=== PATIENT | male | born 1980 | race Caucasian/White ===

== ENCOUNTER → 2020-08-24 08:33 | Outpatient (BNVA) | payer OTHER, SELFPAY | PROVIDERS: PCP Internal Medicine; Referring Provider Internal Medicine; Visit Provider Nurse Practitioner Gerontology | DX: Z76.89 Persons encountering health services in other specified circumstances (principal) ==

== ENCOUNTER 2021-03-23 10:01 | Outpatient (REF) | payer OTHER, SELFPAY ==
[2021-03-23 12:01] LABS: Alanine Aminotransferase 76 U/L (0-40); Albumin Level 4.7 g/dL (3.5-5.0); Alkaline Phosphatase 75 U/L (39-117); Anion Gap 12 (12-20); Aspartate Amino Transferase 39 U/L (5-37); Bilirubin Total 0.6 mg/dL (0.0-1.0); Blood Urea Nitrogen 13 mg/dL (9-16); Calcium 9.8 mg/dL (8.4-10.2); Carbon Dioxide 25 mmol/L (22-29); Chloride 105 mmol/L (96-108); Cholesterol 220 mg/dL; Estimated Glomerular Filt Rate > 60; Glucose Fasting 257 mg/dL (60-99); HDL Cholesterol 35 mg/dL; LDL Cholesterol Calculated 138 mg/dl; Potassium 4.4 mmol/L (3.3-5.1); Sodium 138 mmol/L (135-145); Total Protein 7.5 g/dL (6.5-8.0); Triglycerides 238 mg/dL
[2021-03-23 12:24] LABS: Free T4 (Free Thyroxine) 0.93 ng/dL (0.71-1.85); Thyroid Stimulating Hormone 0.71 uIU/mL (0.32-4.0)
[2021-03-23 13:13] LABS: Microalbum/Creatinine Ratio Ur 13.3 ug/mg cr
[2021-03-24 17:52] LABS: LDL Cholesterol Direct 150 mg/dL (<100)
== END 2021-03-23 10:02 | disposition home or self-care (01) ==
LOC: HO.LAB 10:01
PROVIDERS: PCP Internal Medicine; Visit Provider Nurse Practitioner Gerontology
DX: E11.65 Type 2 diabetes mellitus with hyperglycemia (principal); E66.01 Morbid (severe) obesity due to excess calories; Z68.35 Body mass index [BMI] 35.0-35.9, adult; E78.5 Hyperlipidemia, unspecified; Z79.4 Long term (current) use of insulin
CPT/HCPCS: 36415; 80053; 80061; 82043; 82947; 83721; 84439; 84443

== ENCOUNTER → 2021-06-26 09:07 | Outpatient (BNVA) | payer OTHER, SELFPAY | PROVIDERS: PCP Internal Medicine; Visit Provider Nurse Practitioner Gerontology | DX: E11.65 Type 2 diabetes mellitus with hyperglycemia (principal); E78.5 Hyperlipidemia, unspecified; E66.01 Morbid (severe) obesity due to excess calories; R79.89 Other specified abnormal findings of blood chemistry; Z79.4 Long term (current) use of insulin; Z68.35 Body mass index [BMI] 35.0-35.9, adult | CPT/HCPCS: 82947; 83036 ==

== ENCOUNTER 2022-12-07 11:22 | Outpatient (REF) | payer OTHER, SELFPAY ==
[2022-12-07 14:42] LABS: Hematocrit 44.2 % (42.0-52.0); Hemoglobin 15.3 g/dl (14.0-18.0); Mean Corpuscular HGB Conc 34.6 g/dl (31.0-36.0); Mean Corpuscular Hemoglobin 29.2 pg (27.0-33.0); Mean Corpuscular Volume 84.4 fL (80.0-98.0); Mean Platelet Volume 9.8 fL (9.4-12.4); Platelet Count 232 X10*3/uL (160-400); Red Blood Count 5.24 X10*6/uL (4.60-5.80); Red Cell Distribution Width 12.5 % (11.0-16.0); White Blood Count 7.4 X10*3/uL (4.8-10.8)
[2022-12-07 15:07] LABS: Alanine Aminotransferase 57 U/L (0-40); Albumin Level 4.3 g/dL (3.5-5.0); Alkaline Phosphatase 66 U/L (39-117); Anion Gap 14 (12-20); Aspartate Amino Transferase 28 U/L (5-37); Bilirubin Total 0.8 mg/dL (0.0-1.0); Blood Urea Nitrogen 13 mg/dL (9-16); Calcium 9.5 mg/dL (8.4-10.2); Carbon Dioxide 26 mmol/L (22-29); Chloride 103 mmol/L (96-108); Cholesterol 240 mg/dL; Estimated Glomerular Filt Rate > 60; Glucose Fasting 227 mg/dL (60-99); HDL Cholesterol 34 mg/dL; LDL Cholesterol Calculated 168 mg/dl; Potassium 4.1 mmol/L (3.3-5.1); Sodium 139 mmol/L (135-145); Total Protein 7.2 g/dL (6.5-8.0); Triglycerides 193 mg/dL
[2022-12-07 15:25] LABS: TSH reflex Free T4 1.16 uIU/mL (0.32-4.0)
== END 2022-12-07 11:23 | disposition home or self-care (01) ==
LOC: HO.WFDLDS 11:22
PROVIDERS: Visit Provider Nurse Practitioner Family
DX: E11.65 Type 2 diabetes mellitus with hyperglycemia (principal)
CPT/HCPCS: 36415; 80053; 80061; 84443; 85027

== ENCOUNTER → 2022-12-12 14:22 | Outpatient (BNVA) | payer OTHER, SELFPAY | PROVIDERS: PCP Nurse Practitioner Family; Visit Provider Internal Medicine Endocrinology, Diabetes & Metabolism | DX: E11.65 Type 2 diabetes mellitus with hyperglycemia (principal) | CPT/HCPCS: 82947 ==

== ENCOUNTER → 2023-03-13 10:32 | Outpatient (BNVA) | payer OTHER, SELFPAY | PROVIDERS: PCP Nurse Practitioner Family; Visit Provider Internal Medicine Endocrinology, Diabetes & Metabolism | DX: E11.65 Type 2 diabetes mellitus with hyperglycemia (principal); E78.5 Hyperlipidemia, unspecified | CPT/HCPCS: 82947 ==

== ENCOUNTER 2023-05-21 09:05 | Outpatient (AMB) | payer OTHER, SELFPAY ==
--- NOTE | 2023-05-21 09:07 | A.OFFPC_ITS ---
Vital Signs 05/21/23 09:08 Height 5 ft 7 in Weight 218 lb 4 oz BMI 34.2 BP 110/70 Blood Pressure Location Rt brachial Position Sitting Respiration 12 Pulse 85 Pulse Source Pulse Oximeter Temp 98.1 F Temp Source Temporal Artery Scan Pulse Oximetry (%) 98 Oxygen Delivery Method Room Air Intake Visit Reasons: f/u DM Equine Science Instructor Required: No Accompanied by: Self / Same As Patient Allergies iopamidol [From Isovue-370] Allergy (Mild, Verified 05/21/23 09:23) HIVES ON HEAD AND UPPER ARMS. Contrast Dye Allergy (Unknown, Uncoded 05/21/23 09:23) hives contrast dye Allergy (Unknown, Uncoded 05/21/23 09:23) hives Medication List - Last Reconciled 05/21/23 by Esperanza Wade CNP atorvastatin 40 mg PO BEDTIME blood sugar diagnostic (FreeStyle Lite Strips) 1 strip miscellaneous QID blood-glucose meter (FreeStyle Lite Meter kit) 4 x/day blood-glucose sensor (FreeStyle Juan Jose 3 Sensor device) USE DIRECTED change every 14 days insulin lispro (Humalog KwikPen (U-100) Insulin) 16 units for meals, 2 units for snacks, plus up to 6 units additional units at meals for elevated blood sugars as directed subcut 3 times a day; 90 days lancets As directed 4 times a day Lantus Solostar U-100 Insulin (insulin glargine) 86 units (0.86 mL) subcut QPM 30 days NS pen needle, diabetic (Comfort EZ Pen [place]) As directed injects 4 times a day semaglutide (Ozempic) 2 mg (0.75 mL) subcut QWEEK Tobacco use date assessed: 12/11/22 Dental Screening Dental Screen Date: 05/21/23 Did you have a dental visit in the last 12 months?: Yes Did you have a dental problem in the last 6 months where you did not have access to dental care?: No Was dental information given to patient?: Patient has dentist HPI HPI Comments History of Present Illness Details 43-year-old male presents for diabetes follow-up He has PMH significant for type 2 diabetes, obesity, and hyperlipidemia He is currently on Ozempic, Humalog, Lantus, and atorvastatin He notes he has been taking his medications as prescribed His A1c on 02/2023 was 8.1% Currently on Lantus 86 units, Humalog 16-20 units 3 times a day and 15 units with snacks with a correction for blood sugars over 200 +2 units over 250+ 4 units and over 300+ 6 units. (is only using 15 units with meals,? 10-15 units with snacks)? ? Ozempic 2 mg/week. He is followed by Endocrinology and was seen by the nurse navigator He notes her missed his dietitian appointment and did not call to reschedule Hes states his last eye exam was over a year ago. He was referred to ophthalmology, was contacted but has not scheduled an appointment He states he was on vacation 3 weeks ago and eat unhealthy foods He states that he walks 3-5 miles 3 times a week No acute symptoms today PFSH Medical History Diabetes type 2, uncontrolled Hematuria Hepatic steatosis Hyperlipidemia LDL goal <100 Hypertriglyceridemia Long-term insulin use in type 2 diabetes Obesity due to excess calories Surgical History Hx of appendectomy Hx of wisdom tooth extraction Family History Father DM2 (diabetes mellitus, type 2) Myocardial infarction Deep vein thrombosis Peripheral vascular disease History of left below knee amputation History of above-knee amputation Mother Hypertension Hyperlipidemia Fibromyalgia Diabetes Social History Household Members: Family Household Members Other:: brother Housing: House Alcohol intake: current Patient Tobacco Use Status: Never used Tobacco e-Cigarette/Vaping Use: Never Used service: Yes Current occupational status: employed Current occupation: [employer] Current occupational exposures/hazards: No Cognitive needs: No Hearing needs: No Vision needs: No Questionnaire Thrive Questionnaire Date Thrive assessed: 11/13/22 ROBEL-7 AMB Questionnaire ROBEL-7 Date ROBEL - 7 assessed: 11/13/22 Source: Developed by Drs. Karlos Muhammad, Stephanie Abebe, Fredi Simon and colleagues, with an educational odell from [employer]. Review of Systems Const Details: Const Denies chills, Denies fatigue, Denies fever(s), Denies headache(s) and Denies weakness ENT Denies dizziness and Denies headache(s) Card Denies chest pain, Denies lightheadedness, Denies dyspnea and Denies other (Palpitations) Resp Denies cough, Denies dyspnea, Denies wheezing and Denies other ( shortness of breath) GI Denies abdominal pain, Denies melena, Denies hematochezia, Denies change in bowel habits, Denies dyspepsia and Denies nausea Denies hematuria and Denies dysuria Musc Denies abnormal gait, Denies myalgias, Denies arthralgias, Denies numbness and Denies tingling Skin/Breast Denies rash, Denies unusual bruising and Denies wounds Neuro Denies abnormal gait, Denies dizziness, Denies headache(s), Denies memory loss, Denies numbness, Denies Sensory deficit (Neuro), Denies tingling and Denies weakness Psych Denies anxiety, Denies depression, Denies memory loss Endo Denies cold intolerance, Denies fatigue, Denies heat intolerance, Denies polydipsia and Denies polyuria Aller/Immun Denies wheezing Physical exam (Primary Care) Vital Signs: Last Vital Signs Temp 98.1 F 05/21/23 09:08 Pulse 85 05/21/23 09:08 Resp 12 05/21/23 09:08 BP 110/70 05/21/23 09:08 Pulse Ox 98 05/21/23 09:08 Oxygen Delivery Method Room Air 05/21/23 09:08 BMI result Body Mass Index 34.2 Tobacco/Smoking Status: Tobacco use Status Tobacco use date assessed 12/11/22 05/21/23 09:08 Patient Tobacco Use Status Never used Tobacco 05/21/23 09:08 e-Cigarette/Vaping Use Never Used 05/21/23 09:08 Thrive Assessment: Date of Thrive Assessment Date Thrive assessed 11/13/22 05/21/23 09:08 Const Other: General: no acute distress and well developed Nutritional Appearance: well nourished Orientation/consciousness: patient oriented x3 HENMT Head: Yes normocephalic and Yes atraumatic Eyes General: appearance normal, both eyes and all related structures Pupils: Equal, round and reactive pupils present EOM: EOMs intact bilaterally Resp Effort & Inspection: normal respiratory effort Auscultation: clear to auscultation bilaterally Cardio Rate: regular rate Rhythm: regular rhythm Heart sounds: S1 normal heart sound present, S2 normal heart sound present, no gallops, no murmurs and no rubs GI Palpation (GI): No Abdominal aortic bruit present, Soft to palpation, nontender, No hepatosplenomegaly present and No Rebound tenderness present Auscultation: normal bowel sounds General: Yes no CVA tenderness Back/Spine/Pelvis Back: no CVA tenderness Cervical Spine: cervical ROM normal and No Cervical spine tenderness Thoracic/Lumbar Spine: thoraco-lumbar ROM normal, No pain with thoraco-lumbar ROM, No thoracic spinal tenderness and No lumbar spinal tenderness Extrem General: Yes normal to inspection, No edema and No calf tenderness Skin General: warm and dry. Normal skin color. Normal skin turgor Lesions: no lesions Rashes: no rashes Trauma: no lacerations or abrasions Wounds: no wounds Nails: normal Neuro General: patient oriented x3, gait normal and no focal neuro deficit Cranial nerves: Yes Equal, round and reactive pupils present Cognition (Neuro): normal cognition Gait exam (Neuro): Normal gait present Sensory Exam: No Sensory deficit (Neuro) Psych Appearance: grossly normal Affect: normal affect Attitude: cooperative Thought process: Normal thought process present Results AMB Hemoglobin A1c AMB Hemoglobin A1c 8.5 % Last Edit by Rhoda Childers MA on 05/21/23 09:41 Results Reviewed Results Reviewed: Laboratory Last Values Hgb A1c (Clinic) 8.5 % (4.0-6.0) H 05/21/23 09:40 Assessment and Plan Assessment & Plan (1) Diabetes type 2, uncontrolled: Code(s): E11.65 - Type 2 diabetes mellitus with hyperglycemia Qualifiers: Glycemic state: with hyperglycemia Qualified Code(s): E11.65 - Type 2 diabetes mellitus with hyperglycemia Plan: A1c today is 8.5%, above goal of less than 7.0% Continue with current treatment regimen ADA diet and routine exercise encouraged. He recently lost 14 lb, possibly due to Ozempic Encouraged to call and schedule an appointment with dietitian and ophthalmology Advised to get outstanding urine microalbumin/creatinine ratio done Follow-up in 3 months or return sooner with concerns or symptoms Verbalized understanding and agreed with treatment plan. (2) Hyperlipidemia LDL goal <100: Code(s): E78.5 - Hyperlipidemia, unspecified Plan: LDL was 168 in December 2022 LP ordered Continue to take atorvastatin as prescribed Limit foods high in saturated fat and avoid foods high in trans fat Follow-up in 3 months or return sooner with concerns or symptoms Verbalized understanding and agreed with treatment plan. Orders: Orders Lipid Panel Today E11.65 - Type 2 diabetes mellitus with hyperglycemia, E78.5 - Hyperlipidemia, unspecified Coding Level of Care Code Est Pt Level 3 (58754) Diagnoses Diabetes type 2, uncontrolled E11.65 Glycemic state: with hyperglycemia Hyperlipidemia LDL goal <100 E78.5
[2023-05-21 09:08] VITALS: BP 110/70; PULSE 85; RESP 12; TEMP 36.7; O2SAT 98; BMI 34.2
== END 2023-05-21 09:42 | disposition home or self-care (01) ==
PROVIDERS: Visit Provider Nurse Practitioner Family
DX: E11.65 Type 2 diabetes mellitus with hyperglycemia (principal); E78.5 Hyperlipidemia, unspecified
CPT/HCPCS: 99213

== ENCOUNTER 2023-05-21 09:52 | Outpatient (REF) | payer OTHER, SELFPAY ==
[2023-05-21 12:15] LABS: Cholesterol 217 mg/dL; HDL Cholesterol 34 mg/dL; LDL Cholesterol Calculated 139 mg/dl; Triglycerides 222 mg/dL
[2023-05-21 15:43] LABS: Microalbum/Creatinine Ratio Ur 6.5 ug/mg cr
== END 2023-05-21 09:53 | disposition home or self-care (01) ==
LOC: HO.WFDLDS 09:52
PROVIDERS: Visit Provider Nurse Practitioner Family
DX: E11.65 Type 2 diabetes mellitus with hyperglycemia (principal); E78.5 Hyperlipidemia, unspecified
CPT/HCPCS: 36415; 80061; 82043

== ENCOUNTER 2023-06-19 10:30 | Outpatient (AMB) | payer OTHER, SELFPAY ==
[2023-06-19 10:31] VITALS: BP 106/78; PULSE 97; BMI 34.7
--- NOTE | 2023-06-19 10:31 | MHC.OFFVIS ---
Intake Vital Signs 06/19/23 10:31 Height 5 ft 7 in Weight 221 lb 5.506 oz BMI 34.7 BP 106/78 Blood Pressure Location Lt brachial Position Sitting Pulse 97 Pulse Source Pulse Oximeter Intake Visit Reasons: DM2 Intake Note: Patient present today to follow up on Type 2 Diabetes Mellitus. Patient receives DME supplies through: Pharmacy Last Diabetic Eye exam: 2020 Last Podiatry Visit: Does not see a Food And Beverage Assistant Random Glucose: 142 mg/dl HgA1C: 8.5% 05/21/23 Regional Office Coordinator Required: No Accompanied by: Self / Same As Patient Allergies iopamidol [From Isovue-370] Allergy (Mild, Verified 06/19/23 10:39) HIVES ON HEAD AND UPPER ARMS. Contrast Dye Allergy (Unknown, Uncoded 05/21/23 09:23) hives contrast dye Allergy (Unknown, Uncoded 05/21/23 09:23) hives Medication List - Last Reconciled 06/19/23 by Karlos East MD atorvastatin 80 mg PO BEDTIME blood sugar diagnostic (FreeStyle Lite Strips) 1 strip miscellaneous QID blood-glucose meter (FreeStyle Lite Meter kit) 4 x/day blood-glucose sensor (FreeStyle Juan Jose 3 Sensor device) USE DIRECTED change every 14 days fenofibrate 54 mg PO DAILY 30 days insulin lispro (Humalog KwikPen (U-100) Insulin) 16 units for meals, 2 units for snacks, plus up to 6 units additional units at meals for elevated blood sugars as directed subcut 3 times a day; 90 days lancets As directed 4 times a day Lantus Solostar U-100 Insulin (insulin glargine) 86 units (0.86 mL) subcut QPM 30 days NS pen needle, diabetic (Comfort EZ Pen [place]) As directed injects 4 times a day semaglutide (Ozempic) 2 mg (0.75 mL) subcut QWEEK HPI HPI Comments History of Present Illness Details Patient is 43 yo male with DM type 2 diagnosed around 2013 who presents for management of diabetes. .. Patient reports that he was recently seen an fingerprinter and had a low testosterone. Past medical history: HTG, DM2, HLD Micro and macrovascular complications: none known Diabetes medications: Metformin 500 2 pills BId not taking GI upset even with XR ,Lantus 86 units, Humalog 16-20 units 3 times a day and 15 units with snacks with a correction for blood sugars over 200, +2 units over 250+ 4 units and over 300+ 6 units. (is only using 15 units with meals, 2 units with snacks) Ozempic 2 mg Qwkly stopped because of GI upset Took Jardiance but had symptoms upset stomach Symptoms reported: denies numbness, tingling, cramping in lower extremities Hypoglycemia: denies Hyperglycemia: denies polyuria CGM: In the last 14 days C GM is active 92% of the time. Average blood glucose is 242 Glucose management indicator 9.1%. Glucose variability 27.7 %. Patient has no low blood glucose. Blood glucose within target range of 70-180 21 % .of the time. Blood glucose high from 181-250 35% of the time. Blood glucose very high over 250 44% of the time. Pattern shows elevated point cares throughout the with increases after breakfast and supper p. Exercise: goes to camp and does outdoor projects. Eye exam: no retinopathy Laboratory Tests 03/23/21 03/23/21 03/23/21 10:31 11:22 11:22 Creatinine 0.89 Estimated GFR > 60 Hgb A1c (Clinic) 11.3 H Triglycerides 238 Cholesterol 220 LDL Cholesterol Di rect 150 H LDL Cholesterol, C alc 138 HDL Cholesterol 35 TSH 0.71 Free T4 0.93 Microalb/Creat Rat io 03/23/21 Unknown Creatinine Estimated GFR Hgb A1c (Clinic) Triglycerides Cholesterol LDL Cholesterol Di rect LDL Cholesterol, C alc HDL Cholesterol TSH Free T4 Microalb/Creat Rat io 13.3 Was not complaint with atrovastatin 40 mg [facility] Medical History Diabetes type 2, uncontrolled Hematuria Hepatic steatosis Hyperlipidemia LDL goal <100 Hypertriglyceridemia Long-term insulin use in type 2 diabetes Obesity due to excess calories Surgical History Hx of wisdom tooth extraction Hx of appendectomy Family History Father DM2 (diabetes mellitus, type 2) Myocardial infarction Deep vein thrombosis Peripheral vascular disease History of left below knee amputation History of above-knee amputation Mother Hypertension Hyperlipidemia Fibromyalgia Diabetes Social History Household Members: Family Household Members Other:: brother Housing: House Alcohol intake: current Patient Tobacco Use Status: Never used Tobacco e-Cigarette/Vaping Use: Never Used service: Yes Current occupational status: employed 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 Absence of acromegalic features. Neck exam reveals nl size thyroid about 15 gms. No thyroid nodules palpable. No carotid bruits present. Lungs CTA. Heart S1 S2, Reg R/R. No M/R/ G. Skin exam reveals absence of vitiligo or acanthosis nigricans. Abdominal exam reveals Soft NT/ND with NA BS. No organomegaly present. Neck Other: . Extrem Other: Visual exam of foot performed. No ulcerations or open lesions. No onchomycosis, no callouses.Pulses 2 + distally Sensation intact to monofilament exam. Vibratory sensation sensed is intact with 128 Hz tuning fork Assessment & Plan Assessment & Plan (1) Diabetes type 2, uncontrolled: Code(s): E11.65 - Type 2 diabetes mellitus with hyperglycemia Qualifiers: Glycemic state: with hyperglycemia Qualified Code(s): E11.65 - Type 2 diabetes mellitus with hyperglycemia Plan: Is a 43-year-old white male with a history of type 2 diabetes being treated with Ozempic , and basal-bolus insulin with poor glycemic control and no known microvascular or macrovascular complication. Plan is to switch the Ozempic back to Mounjaro Patient was doing very well with Mounjaro 5 mg samples but health insurance declined saying have to try 3 G LP -1 before approved. He failed both Ozempic and Trulicity Will attempt Victoza 0.6 mg q.day. if patient cannot tolerate Victoza will then switch to Mounjaro 5 mg Mounjaro 2.5 mg/0.5 cc samples given to patient. Lot # [id number] C expiration date 10/10/2024 (2) Hyperlipidemia LDL goal <100: Code(s): E78.5 - Hyperlipidemia, unspecified Plan: LDL not at goal on atorvastatin 40 mg. Will increase atorvastatin to 80 mg and recheck lipid profile in 4 weeks Orders: Orders Lipid Panel 6 Weeks E78.5 - Hyperlipidemia, unspecified Medications: New atorvastatin 40 mg PO BEDTIME 30 tabs 5RF liraglutide (Victoza 2-Chon) 0.6 mg (0.1 mL) subcut DAILY 6 mL 4RF Discontinued fenofibrate Discontinued Reason: Doctor's Order 54 mg PO DAILY 30 days 30 tabs 3RF atorvastatin Discontinued Reason: Doctor's Order 40 mg PO BEDTIME 90 tabs 3RF semaglutide (Ozempic) Discontinued Reason: Doctor's Order 2 mg (0.75 mL) subcut QWEEK 3 mL 4RF Coding Level of Care Code Est Pt Level 4 (37865) Diagnoses Uncontrolled type 2 diabetes mellitus with hyperglycemia E11.65 Glycemic state: with hyperglycemia Hyperlipidemia LDL goal <100 E78.5
[2023-06-19 10:47] LABS: Glucose, Whole Blood 142 mg/dL (60-115)
== END 2023-06-19 11:11 | disposition home or self-care (01) ==
PROVIDERS: PCP Nurse Practitioner Family; Visit Provider Internal Medicine Endocrinology, Diabetes & Metabolism
DX: E11.65 Type 2 diabetes mellitus with hyperglycemia (principal); E78.5 Hyperlipidemia, unspecified
CPT/HCPCS: 99214

== ENCOUNTER → 2023-06-19 10:30 | Outpatient (BNVA) | payer OTHER, SELFPAY | PROVIDERS: PCP Nurse Practitioner Family; Visit Provider Internal Medicine Endocrinology, Diabetes & Metabolism | DX: E11.65 Type 2 diabetes mellitus with hyperglycemia (principal); E78.5 Hyperlipidemia, unspecified; Z79.4 Long term (current) use of insulin | CPT/HCPCS: 82947 ==

== ENCOUNTER 2023-08-20 09:07 | Outpatient (AMB) | payer OTHER, SELFPAY ==
--- NOTE | 2023-08-20 09:10 | A.OFFPC_ITS ---
Vital Signs 08/20/23 09:16 Height 5 ft 7 in Weight 224 lb 9 oz BMI 35.2 BP 124/68 Blood Pressure Location Rt brachial Position Sitting Pulse 73 Pulse Source Pulse Oximeter Pulse Oximetry (%) 97 Oxygen Delivery Method Room Air Intake Visit Reasons: 3 mos DM Intake Note: Patient is here for a 3 month diabetic follow up. Patient reports he needs a refill on test strips. 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 Contrast Dye Allergy (Unknown, Uncoded 08/20/23 11:51) hives contrast dye Allergy (Unknown, Uncoded 08/20/23 11:51) hives Medication List - Last Reconciled 08/20/23 by Esperanza Wade CNP atorvastatin 40 mg PO BEDTIME blood sugar diagnostic (FreeStyle Lite Strips) 1 strip miscellaneous QID blood-glucose meter (FreeStyle Lite Meter kit) 4 x/day blood-glucose sensor (FreeStyle Juan Jose 3 Sensor device) Change sensor every 14 days insulin lispro (Humalog KwikPen (U-100) Insulin) 16 units for meals, 2 units for snacks, plus up to 6 units additional units at meals for elevated blood sugars as directed subcut 3 times a day; 90 days lancets As directed 4 times a day Lantus Solostar U-100 Insulin (insulin glargine) 86 units (0.86 mL) subcut QPM 30 days NS liraglutide (Victoza 2-Chon) 1.2 mg (0.2 mL) subcut DAILY 30 days pen needle, diabetic (Comfort EZ Pen [place]) As directed injects 4 times a day Tobacco use date assessed: 12/11/22 HPI HPI Comments History of Present Illness Details 43-year-old male presents for diabetes f [facility]. His last A1c in May was 8.5%. He admits to taking his medications as prescribed. He notes that Victoza is not effective. He states that his FBS is in the high 200s to low 300s and RBS is in the high 300s to 400s sometimes. He was last seen by endocrinology in June and has a follow-up in September. He admits to taking his medications as prescribed. He offers no complaints and denies acute symptoms at this time. He notes that his freestyle Juan Jose 3 sensor stopped reading a few days ago. He admits to changing the Sensor as instructed every 14 days. He notes that the last time similar incident occurred, he contacted his health plan as advised by the pharmacy and was issued a replacement that worked. He notes that his diet has improved. He consumes less carbs. He does outdoors activities, including walking for exercise. He notes that his last eye exam was 2 years ago. He was referred to Ophthalmology, however, he notes he has not called to schedule an appointment. [facility] Medical History Diabetes type 2, uncontrolled Hematuria Hepatic steatosis Hyperlipidemia LDL goal <100 Hypertriglyceridemia Long-term insulin use in type 2 diabetes Obesity due to excess calories Surgical History Hx of wisdom tooth extraction Hx of appendectomy Family History Father DM2 (diabetes mellitus, type 2) Myocardial infarction Deep vein thrombosis Peripheral vascular disease History of left below knee amputation History of above-knee amputation Mother Hypertension Hyperlipidemia Fibromyalgia Diabetes Social History Household Members: Family Household Members Other:: brother Housing: House Alcohol intake: current Patient Tobacco Use Status: Never used Tobacco e-Cigarette/Vaping Use: Never Used service: Yes Current occupational status: employed Current occupation: [employer] Current occupational exposures/hazards: No Cognitive needs: No Hearing needs: No Vision needs: No Questionnaire Thrive Questionnaire Date Thrive assessed: 11/13/22 ROBEL-7 AMB Questionnaire ROBEL-7 Date ROBEL - 7 assessed: 11/13/22 Source: Developed by Drs. Karlos Muhammad, Stephanie Abebe, Fredi Simon and colleagues, with an educational odell from [employer]. Review of Systems Const Details: Const Denies chills, Denies fatigue, Denies fever(s), Denies headache(s) and Denies weakness ENT Denies dizziness and Denies headache(s) Card Denies chest pain, Denies lightheadedness, Denies dyspnea and Denies other (Palpitations) Resp Denies cough, Denies dyspnea, Denies wheezing and Denies other ( shortness of breath) GI Denies abdominal pain, Denies melena, Denies hematochezia, Denies change in bowel habits, Denies dyspepsia and Denies nausea Denies hematuria and Denies dysuria Musc Denies abnormal gait, Denies myalgias, Denies arthralgias, Denies numbness and Denies tingling Skin/Breast Denies rash, Denies unusual bruising and Denies wounds Neuro Denies abnormal gait, Denies dizziness, Denies headache(s), Denies memory loss, Denies numbness, Denies Sensory deficit (Neuro), Denies tingling and Denies weakness Psych Denies anxiety, Denies depression, Denies memory loss Endo Denies cold intolerance, Denies fatigue, Denies heat intolerance, Denies polydipsia and Denies polyuria Aller/Immun Denies wheezing Physical exam (Primary Care) Vital Signs: Last Vital Signs Pulse 73 08/20/23 09:16 BP 124/68 08/20/23 09:16 Pulse Ox 97 08/20/23 09:16 Oxygen Delivery Method Room Air 08/20/23 09:16 BMI result Body Mass Index 35.2 Tobacco/Smoking Status: Tobacco use Status Tobacco use date assessed 12/11/22 08/20/23 09:12 Patient Tobacco Use Status Never used Tobacco 08/20/23 09:12 e-Cigarette/Vaping Use Never Used 08/20/23 09:12 Thrive Assessment: Date of Thrive Assessment Date Thrive assessed 11/13/22 08/20/23 09:12 Const Other: General: no acute distress and well developed Nutritional Appearance: well nourished Orientation/consciousness: patient oriented x3 HENMT Head: Yes normocephalic and Yes atraumatic Eyes General: appearance normal, both eyes and all related structures Pupils: Equal, round and reactive pupils present EOM: EOMs intact bilaterally Resp Effort & Inspection: normal respiratory effort Auscultation: clear to auscultation bilaterally Cardio Rate: regular rate Rhythm: regular rhythm Heart sounds: S1 normal heart sound present, S2 normal heart sound present, no gallops, no murmurs and no rubs GI Palpation (GI): No Abdominal aortic bruit present, Soft to palpation, nontender, No hepatosplenomegaly present and No Rebound tenderness present Auscultation: normal bowel sounds General: Yes no CVA tenderness Back/Spine/Pelvis Back: no CVA tenderness Cervical Spine: cervical ROM normal and No Cervical spine tenderness Thoracic/Lumbar Spine: thoraco-lumbar ROM normal, No pain with thoraco-lumbar ROM, No thoracic spinal tenderness and No lumbar spinal tenderness Extrem General: Yes normal to inspection, No edema and No calf tenderness Skin General: warm and dry. Normal skin color. Normal skin turgor Lesions: no lesions Rashes: no rashes Trauma: no lacerations or abrasions Wounds: no wounds Nails: normal Neuro General: patient oriented x3, gait normal and no focal neuro deficit Cranial nerves: Yes Equal, round and reactive pupils present Cognition (Neuro): normal cognition Gait exam (Neuro): Normal gait present Sensory Exam: No Sensory deficit (Neuro) Psych Appearance: grossly normal Affect: normal affect Attitude: cooperative Thought process: Normal thought process present Results AMB Hemoglobin A1c AMB Hemoglobin A1c 9.7 % Last Edit by Laverne Contreras CMA on 08/20/23 10:00 Results Reviewed Results Reviewed: Laboratory Last Values Hgb A1c (Clinic) 9.7 % (4.0-6.0) H 08/20/23 09:25 Assessment and Plan Assessment & Plan (1) Diabetes type 2, uncontrolled: Code(s): E11.65 - Type 2 diabetes mellitus with hyperglycemia Qualifiers: Glycemic state: with hyperglycemia Qualified Code(s): E11.65 - Type 2 diabetes mellitus with hyperglycemia Plan: A1c today is 9.7%, above goal of less than 7.0%. Previous A1c was 8.5% Followed by endocrinology Recent urine microalbumin/creatinine ratio is 17.2 Recent LDL is 139 Will increase Victoza to 1.2% subcutaneously daily. Administer as prescribed ADA diet and routine exercise encouraged Advised to call Ophthalmology and schedule an appointment for diabetic eye exam Continue to monitor blood glucose daily Advised to contact the pharmacy and his health plan for new Juan Jose 3 sensor to be issued. Message sent to the nurse navigator to assist patient with getting a functioning Juan Jose 3 Sensor Follow-up with Endocrinology as scheduled next month Return in 3 months or sooner with symptoms or concerns Verbalized understanding and agreed with treatment plan. Orders: Orders AMB Hemoglobin A1c Today Z13.9 - Encounter for screening, unspecified Medications: New liraglutide (Victoza 2-Chon) 1.2 mg (0.2 mL) subcut DAILY 30 days 6 mL 4RF Z00.00 - Encounter for general adult medical examination without abnormal findings Discontinued liraglutide (Victoza 2-Chon) Discontinued Reason: Doctor's Order 0.6 mg (0.1 mL) subcut DAILY 6 mL 4RF Coding Level of Care Code Est Pt Level 4 (57914) Diagnoses Uncontrolled type 2 diabetes mellitus with hyperglycemia E11.65 Glycemic state: with hyperglycemia
[2023-08-20 09:16] VITALS: BP 124/68; PULSE 73; O2SAT 97; BMI 35.2
== END 2023-08-20 10:08 | disposition home or self-care (01) ==
PROVIDERS: PCP Nurse Practitioner Family; Visit Provider Nurse Practitioner Family
DX: E11.65 Type 2 diabetes mellitus with hyperglycemia (principal)
CPT/HCPCS: 83036; 99214

== ENCOUNTER 2023-09-25 07:46 | Outpatient (REF) | payer OTHER, SELFPAY ==
[2023-09-25 11:52] LABS: Cholesterol 159 mg/dL (<200); HDL Cholesterol 33 mg/dL (>40); LDL Cholesterol Calculated 95 mg/dL (<100); Triglycerides 157 mg/dL (<150)
== END 2023-09-25 07:47 | disposition home or self-care (01) ==
LOC: HO.HMGCLDS 07:46
PROVIDERS: PCP Nurse Practitioner Family; Visit Provider Internal Medicine Endocrinology, Diabetes & Metabolism
DX: E78.5 Hyperlipidemia, unspecified (principal)
CPT/HCPCS: 36415; 80061

== ENCOUNTER 2023-10-01 08:21 | Outpatient (AMB) | payer OTHER, SELFPAY ==
--- NOTE | 2023-10-01 08:25 | A.OFFVIS_ITS ---
Intake Vital Signs 10/01/23 08:26 Height 5 ft 7 in Weight 228 lb 2.855 oz BMI 35.7 BP 116/78 Blood Pressure Location Lt brachial Position Sitting Pulse 68 Pulse Source Pulse Oximeter Intake Visit Reasons: DM-CONFIRMED Intake Note: Patient present today to follow up on Type 2 Diabetes Mellitus. Patient receives DME supplies through: Pharmacy Last Diabetic Eye exam: 09/19/23 Last Podiatry Visit: None Random Glucose: 152 mg/dl HgA1C: 9.7% 08/20/23 Associate Professor Of Psychology Required: No Accompanied by: Self / Same As Patient Allergies iopamidol [From Isovue-370] Allergy (Mild, Verified 10/01/23 08:34) HIVES ON HEAD AND UPPER ARMS. Contrast Dye Allergy (Unknown, Uncoded 08/20/23 11:51) hives contrast dye Allergy (Unknown, Uncoded 08/20/23 11:51) hives HPI HPI Comments History of Present Illness Details Patient is 43 yo male with DM type 2 diagnosed around 2013 who presents for management of diabetes. .. Past medical history: HTG, DM2, HLD Micro and macrovascular complications: none known Diabetes medications: Metformin 500 2 pills BId not taking GI upset even with XR ,Lantus 86 units, Humalog 16-20 units 3 times a day and 15 units with snacks with a correction for blood sugars over 200, +2 units over 250+ 4 units and over 300+ 6 units. (is only using 15 units with meals, 2 units with snacks) Ozempic 2 mg Qwkly stopped because of GI upset . Now on Mounjaro 2.5 mg Qwkly Took Jardiance but had symptoms upset stomach Symptoms reported: denies numbness, tingling, cramping in lower extremities Hypoglycemia: denies Hyperglycemia: denies polyuria CGM: In the last 14 days C GM is active 96% of the time. Average blood glucose is 176 Glucose management indicator 7.5%. Glucose variability 27.2 %. Patient has no low blood glucose. Blood glucose within target range of 70-180 60 % .of the time. Blood glucose high from 181-250 33% of the time. Blood glucose very high over 250 7% of the time. Pattern shows elevated point cares throughout the with increases after breakfast and supper p. Exercise: goes to camp and does outdoor projects. Eye exam: wk ago no retinopathy Laboratory Tests 03/23/21 03/23/21 03/23/21 10:31 11:22 11:22 Creatinine 0.89 Estimated GFR > 60 Hgb A1c (Clinic) 11.3 H Triglycerides 238 Cholesterol 220 LDL Cholesterol Di rect 150 H LDL Cholesterol, C alc 138 HDL Cholesterol 35 TSH 0.71 Free T4 0.93 Microalb/Creat Rat io 03/23/21 Unknown Creatinine Estimated GFR Hgb A1c (Clinic) Triglycerides Cholesterol LDL Cholesterol Di rect LDL Cholesterol, C alc HDL Cholesterol TSH Free T4 Microalb/Creat Rat io 13.3 Was not complaint with atrovastatin 40 mg PFSH Medical History Diabetes type 2, uncontrolled Hematuria Hepatic steatosis Hyperlipidemia LDL goal <100 Hypertriglyceridemia Long-term insulin use in type 2 diabetes Obesity due to excess calories Surgical History Hx of wisdom tooth extraction Hx of appendectomy Family History Father DM2 (diabetes mellitus, type 2) Myocardial infarction Deep vein thrombosis Peripheral vascular disease History of left below knee amputation History of above-knee amputation Mother Hypertension Hyperlipidemia Fibromyalgia Diabetes Social History Household Members: Family Household Members Other:: brother Housing: House Alcohol intake: current Patient Tobacco Use Status: Never used Tobacco e-Cigarette/Vaping Use: Never Used service: Yes Current occupational status: employed 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 Absence of acromegalic features. Neck exam reveals nl size thyroid about 15 gms. No thyroid nodules palpable. No carotid bruits present. Lungs CTA. Heart S1 S2, Reg R/R. No M/R/ G. Skin exam reveals absence of vitiligo or acanthosis nigricans. Abdominal exam reveals Soft NT/ND with NA BS. No organomegaly present. Neck Other: . Extrem Other: Visual exam of foot performed. No ulcerations or open lesions. No onchomycosis, no callouses.Pulses 2 + distally Sensation intact to monofilament exam. Vibratory sensation sensed is intact with 128 Hz tuning fork Assessment & Plan Assessment & Plan (1) Diabetes type 2, uncontrolled: Code(s): E11.65 - Type 2 diabetes mellitus with hyperglycemia Qualifiers: Glycemic state: with hyperglycemia Qualified Code(s): E11.65 - Type 2 diabetes mellitus with hyperglycemia Plan: Is a 43-year-old white male with a history of type 2 diabetes being treated with Mounjaro 2.5 mg , and basal-bolus insulin with improved but not optimal glycemic control and no known microvascular or macrovascular complication. Plan is to increase the Mounjaro to 5 mg Q weekly. Patient told to report any h ypoglycemia for adjustment of insulin. Mounjaro 2.5 mg samples given the patient lot number [id number] A expiration date 04/17/2025 (2) Hyperlipidemia LDL goal <100: Code(s): E78.5 - Hyperlipidemia, unspecified Plan: LDL at goal at atorvastatin 80 mg Medications: Refilled Lantus Solostar U-100 Insulin (insulin glargine) 86 units (0.86 mL) subcut QPM 30 days 45 mL 3RF NS Coding Level of Care Code Est Pt Level 4 (36154) Diagnoses Uncontrolled type 2 diabetes mellitus with hyperglycemia E11.65 Glycemic state: with hyperglycemia Hyperlipidemia LDL goal <100 E78.5
[2023-10-01 08:26] VITALS: BP 116/78; PULSE 68; BMI 35.7
[2023-10-01 08:36] LABS: Glucose, Whole Blood 152 mg/dL (60-115)
== END 2023-10-01 08:46 | disposition home or self-care (01) ==
PROVIDERS: PCP Nurse Practitioner Family; Visit Provider Internal Medicine Endocrinology, Diabetes & Metabolism
DX: E11.65 Type 2 diabetes mellitus with hyperglycemia (principal); E78.5 Hyperlipidemia, unspecified
CPT/HCPCS: 99214

== ENCOUNTER → 2023-10-01 08:21 | Outpatient (BNVA) | payer OTHER, SELFPAY | PROVIDERS: PCP Nurse Practitioner Family; Visit Provider Internal Medicine Endocrinology, Diabetes & Metabolism | DX: E11.65 Type 2 diabetes mellitus with hyperglycemia (principal); E78.5 Hyperlipidemia, unspecified; Z79.4 Long term (current) use of insulin | CPT/HCPCS: 82947 ==

== ENCOUNTER 2024-01-29 08:19 | Outpatient (AMB) | payer OTHER, SELFPAY ==
--- NOTE | 2024-01-29 08:22 | A.OFFVIS_ITS ---
Vital Signs 01/29/24 08:23 Height 5 ft 7 in Weight 227 lb 4.745 oz BMI 35.6 BP 118/84 Blood Pressure Location Lt brachial Position Sitting Pulse 75 Pulse Source Pulse Oximeter Intake Visit Reasons: T2DM Intake Note: Patient presents today to follow up on D2MT. Last Diabetic Eye exam: 06/2023 Last Podiatry Visit: Doesn't have one Random Glucose: 116 mg/dl HgA1c: 7.4% Engineering Technical Writer Required: No Accompanied by: Self / Same As Patient Allergies iopamidol [From Isovue-370] Allergy (Mild, Verified 01/29/24 08:27) HIVES ON HEAD AND UPPER ARMS. Contrast Dye Allergy (Unknown, Uncoded 01/29/24 08:27) hives contrast dye Allergy (Unknown, Uncoded 01/29/24 08:27) hives Medication List - Last Reconciled 01/29/24 by Karlos East MD atorvastatin 80 mg PO BEDTIME blood sugar diagnostic (FreeStyle Lite Strips) TEST 4 TIMES A DAY blood-glucose meter (FreeStyle Lite Meter kit) 4 x/day blood-glucose sensor (FreeStyle Juan Jose 3 Sensor device) FOR GLUCOSE MONITORING CHANGE SENSOR EVERY 14 DAYS insulin lispro (Humalog KwikPen (U-100) Insulin) 16 units for meals, 2 units for snacks, plus up to 6 units additional units at meals for elevated blood sugars as directed subcut 3 times a day; 90 days lancets As directed 4 times a day Lantus Solostar U-100 Insulin (insulin glargine) 86 units (0.86 mL) subcut DAILY NS pen needle, diabetic (Comfort EZ Pen [place]) As directed injects 4 times a day semaglutide (Ozempic) 2 mg (0.75 mL) subcut QWEEK HPI Comments Details: Patient is 43 yo male with DM type 2 diagnosed around 2013 who presents for management of diabetes. .. Past medical history: HTG, DM2, HLD Micro and macrovascular complications: none known Diabetes medications: Metformin 500 2 pills BId not taking GI upset even with XR ,Lantus 60 units, Humalog 12-14 units 3 times a day and 15 units with snacks with a correction for blood sugars over 200, +2 units over 250+ 4 units and over 300+ 6 units. (is only using 15 units with meals, 2 units with snacks) Ozempic 2 mg Qwkly Took Jardiance but had symptoms upset stomach Symptoms reported: denies numbness, tingling, cramping in lower extremities Hypoglycemia: denies Hyperglycemia: denies polyuria CGM: In the last 14 days C GM is active 91% of the time. Average blood glucose is 168 Glucose management indicator 7.3%. Glucose variability 24.3 %. Patient has no low blood glucose. Blood glucose within target range of 70-180 66 % .of the time. Blood glucose high from 181-250 30% of the time. Blood glucose very high over 250 4% of the time. Pattern shows increases after breakfast and supper p. Exercise: goes to camp and does outdoor projects. Eye exam: last 6 mos no retinopathy Laboratory Tests 03/23/21 03/23/21 03/23/21 10:31 11:22 11:22 Creatinine 0.89 Estimated GFR > 60 Hgb A1c (Clinic) 11.3 H Triglycerides 238 Cholesterol 220 LDL Cholesterol Direct 150 H LDL Cholesterol, Calc 138 HDL Cholesterol 35 TSH 0.71 Free T4 0.93 Microalb/Creat Ratio 03/23/21 Unknown Creatinine Estimated GFR Hgb A1c (Clinic) Triglycerides Cholesterol LDL Cholesterol Direct LDL Cholesterol, Calc HDL Cholesterol TSH Free T4 Microalb/Creat Ratio 13.3 Was not complaint with atrovastatin 40 mg PFSH Medical History Diabetes type 2, uncontrolled Hematuria Hepatic steatosis Hyperlipidemia LDL goal <100 Hypertriglyceridemia Long-term insulin use in type 2 diabetes Obesity due to excess calories Surgical History Hx of wisdom tooth extraction Hx of appendectomy Family History Father DM2 (diabetes mellitus, type 2) Myocardial infarction Deep vein thrombosis Peripheral vascular disease History of left below knee amputation History of above-knee amputation Mother Hypertension Hyperlipidemia Fibromyalgia Diabetes Social History Household Members: Family Household Members Other:: brother Housing: House Alcohol intake: current Patient Tobacco Use Status: Never used Tobacco e-Cigarette/Vaping Use: Never Used service: Yes Current occupational status: employed 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 Absence of acromegalic features. Neck exam reveals nl size thyroid about 15 gms. No thyroid nodules palpable. No carotid bruits present. Lungs CTA. Heart S1 S2, Reg R/R. No M/R/ G. Skin exam reveals absence of vitiligo or acanthosis nigricans. Abdominal exam reveals Soft NT/ND with NA BS. No organomegaly present. Neck Other: . Extrem Other: Visual exam of foot performed. No ulcerations or open lesions. No onchomycosis, no callouses.Pulses 2 + distally Sensation intact to monofilament exam. Vibratory sensation sensed is intact with 128 Hz tuning fork Results AMB Hemoglobin A1c AMB Hemoglobin A1c 7.4 % Last Edit by SHONNA Cotton on 01/29/24 08:53 Results Reviewed Results Reviewed: Laboratory Last Values Glucose (Clinic) 116 mg/dL (60-115) H 01/29/24 08:30 Assessment & Plan Assessment & Plan (1) Diabetes type 2, uncontrolled: Code(s): E11.65 - Type 2 diabetes mellitus with hyperglycemia Category: Medical Qualifiers: Glycemic state: with hyperglycemia Qualified Code(s): E11.65 - Type 2 diabetes mellitus with hyperglycemia Plan: Is a 43-year-old white male with a history of type 2 diabetes being treated with Ozempic , and basal-bolus insulin with improved but not optimal glycemic control and no known microvascular or macrovascular complication. Plan is to increase the Humalog by 4 units prior to each meal. Will switch back to Mounjaro when it becomes available. (2) Hyperlipidemia LDL goal <100: Code(s): E78.5 - Hyperlipidemia, unspecified Category: Medical Plan: LDL at goal at atorvastatin 80 mg Coding Level of Care Code Est Pt Level 4 (19728) Diagnoses Uncontrolled type 2 diabetes mellitus with hyperglycemia E11.65 Glycemic state: with hyperglycemia Hyperlipidemia LDL goal <100 E78.5
[2024-01-29 08:23] VITALS: BP 118/84; PULSE 75; BMI 35.6
[2024-01-29 08:35] LABS: Glucose, Whole Blood 116 mg/dL (60-115)
== END 2024-01-29 08:43 | disposition home or self-care (01) ==
PROVIDERS: PCP Nurse Practitioner Family; Visit Provider Internal Medicine Endocrinology, Diabetes & Metabolism
DX: Z13.9 Encounter for screening, unspecified (principal); E11.65 Type 2 diabetes mellitus with hyperglycemia; E78.5 Hyperlipidemia, unspecified
CPT/HCPCS: 99214

== ENCOUNTER → 2024-01-29 08:19 | Outpatient (BNVA) | payer OTHER, SELFPAY | PROVIDERS: PCP Nurse Practitioner Family; Visit Provider Internal Medicine Endocrinology, Diabetes & Metabolism | DX: E11.65 Type 2 diabetes mellitus with hyperglycemia (principal); E78.5 Hyperlipidemia, unspecified; Z79.4 Long term (current) use of insulin; Z79.85 Long-term (current) use of injectable non-insulin antidiabetic drugs | CPT/HCPCS: 82947; 83036 ==

== ENCOUNTER 2024-03-20 08:35 | Outpatient (AMB) | payer OTHER, SELFPAY ==
[2024-03-20 08:37] VITALS: BP 126/80; PULSE 82; RESP 14; TEMP 36.5; O2SAT 98; BMI 35.5
--- NOTE | 2024-03-20 08:37 | MHC.PC.OV ---
Vital Signs 03/20/24 08:37 Height 5 ft 7 in Weight 227 lb BMI 35.5 BP 126/80 Blood Pressure Location Rt brachial Position Sitting Respiration 14 Pulse 82 Pulse Source Pulse Oximeter Temp 97.7 F Temp Source Temporal Artery Scan Pulse Oximetry (%) 98 Oxygen Delivery Method Room Air Intake Visit Reasons: CPE User Experience Team Lead Required: No Accompanied by: Self / Same As Patient Allergies iopamidol [From Isovue-370] Allergy (Mild, Verified 03/20/24 08:50) HIVES ON HEAD AND UPPER ARMS. Contrast Dye Allergy (Unknown, Uncoded 03/20/24 08:50) hives contrast dye Allergy (Unknown, Uncoded 03/20/24 08:50) hives Medication List - Last Reconciled 03/20/24 by Esperanza Wade CNP atorvastatin 80 mg PO BEDTIME blood sugar diagnostic (FreeStyle Lite Strips) TEST 4 TIMES A DAY blood-glucose meter (FreeStyle Lite Meter kit) 4 x/day blood-glucose sensor (FreeStyle Juan Jose 3 Sensor device) FOR GLUCOSE MONITORING CHANGE SENSOR EVERY 14 DAYS insulin glargine (Lantus Solostar U-100 Insulin) 60 units subcut DAILY insulin lispro (Humalog KwikPen (U-100) Insulin) 16 units for meals, 2 units for snacks, plus up to 6 units additional units at meals for elevated blood sugars as directed subcut 3 times a day; 90 days lancets As directed 4 times a day pen needle, diabetic (Comfort EZ Pen [place]) As directed injects 4 times a day semaglutide (Ozempic) 2 mg (0.75 mL) subcut QWEEK Tobacco use date assessed: 03/20/24 Dental Screening Dental Screen Date: 03/20/24 Did you have a dental visit in the last 12 months?: Yes Did you have a dental problem in the last 6 months where you did not have access to dental care?: No Was dental information given to patient?: Patient has dentist HPI HPI Comments History of Present Illness Details 44-year-old male presents for an extended physical exam He has past medical history significant for DM2, HDL, and obesity He admits to taking his medications as prescribed without adverse reactions He offers no complaints and denies acute symptoms at this time He is followed by [facility] endocrinology. His last appointment was on 01/29/2024; A1c was 7.4% His last eye exam was September 23, 2023 with [facility]: no retinopathy He notes that he was evaluated by [facility] about 2 months ago for lesion to the back of his head; biopsy confirmed amyloidosis; was referred to a collar tacker who told him he should be referred to a different specialist [facility] Medical History Long-term insulin use in type 2 diabetes Hepatic steatosis Hypertriglyceridemia Hematuria Hyperlipidemia LDL goal <100 Obesity due to excess calories Diabetes type 2, uncontrolled Surgical History Hx of wisdom tooth extraction Hx of appendectomy Family History Father DM2 (diabetes mellitus, type 2) Myocardial infarction Deep vein thrombosis Peripheral vascular disease History of left below knee amputation History of above-knee amputation Mother Hypertension Hyperlipidemia Fibromyalgia Diabetes Social History Household Members: Family Household Members Other:: brother Housing: House Alcohol intake: current Patient Tobacco Use Status: Never used Tobacco e-Cigarette/Vaping Use: Never Used service: Yes Current occupational status: employed Current occupation: [employer] Current occupational exposures/hazards: No Cognitive needs: No Hearing needs: No Vision needs: No Questionnaire PHQ-9 Over the last 2 weeks, how often have you been bothered by any of the following problems? 1. Little interest or pleasure in doing things: not at all 2. Feeling down, depressed, or hopeless: not at all 3. Trouble falling or staying asleep, or sleeping too much: not at all 4. Feeling tired or having little energy: not at all 5. Poor appetite or overeating: not at all 6. Feeling bad about yourself - or that you are a failure or have let yourself or your family down: not at all 7. Trouble concentrating on things, such as reading the newspaper or watching television: not at all 8. Moving or speaking so slowly that other people could have noticed. Or the opposite - being so fidgety or restless that you have been moving around a lot more than usual: not at all 9. Thoughts that you would be better off or of hurting yourself in some way: not at all Total score: 0 Depression Screening Interpretation: Negative Depression Screening Done: Yes Source: Developed by Drs. Karlos Muhammad, Stephanie Abebe, Fredi Simon and colleagues, with an educational odell from [employer]. Thrive Questionnaire Date Thrive assessed: 03/20/24 I am a: Patient What is your living situation today?: I have a steady place to live Within the past 12 months, did the food you bought not last and you didn't have the money to get more?: Never true Within the past 12 months, did you worry whether your food would run out before you got money to buy more?: Never true Do you have trouble paying for medicines?: No Do you have trouble getting transportation to medical appointments?: No Do you have trouble paying your heating and electricity bill?: No Do you have trouble taking care of your child, family member or friend?: No Do you have trouble with day-to-day activities such as bathing, preparing meals, shopping, managing finances, etc.?: No Are you currently unemployed and looking for a job?: No Are you interested in more education?: No Please select the resources that you would like help with: None Currently or been in a relationship where the following occur: no concerns reported THRIVE Score: 0 AUDIT C Alcohol Use Questionnaire (AUDIT-C) 1. How often do you have a drink containing alcohol?: Monthly or less 2. How many drinks containing alcohol do you have on a typical day when you are drinking?: 3 or 4 3. How often do you have six or more drinks on one occasion?: Never Total Score: 2 ROBEL-7 AMB Questionnaire ROBEL-7 Date ROBEL - 7 assessed: 03/20/24 Feeling nervous, anxious, or on edge: 0 = Not at all Not being able to stop or control worryin = Not at all Worrying too much about different things: 0 = Not at all Trouble relaxin = Not at all Being so restless that it is hard to sit still: 0 = Not at all Becoming easily annoyed or irritable: 0 = Not at all Feeling afraid as if something awful might happen: 0 = Not at all Total ROBEL-7 score (0-4 normal; 5-9 mild; 10-14 moderate; 15-21 severe): 0 Source: Developed by Drs. Karlos Muhammad, Stephanie Abebe, Fredi Simon and colleagues, with an educational odell from [employer]. ROBEL-7 Assessment Billing ROBEL-7 Assessment Tool: ROBEL-7 Assessment 40532 Review of Systems Const Details: Denies chills, Denies fatigue, Denies fever(s), Denies headache(s) and Denies weakness HEENT Denies change in vision, Denies dizziness, Denies headache(s), Denies hearing loss, Denies nasal congestion, Denies sinus pain, Denies sinus pressure and Denies sore throat Card Denies chest pain, Denies lightheadedness, Denies dyspnea and Denies other (palpitations) Resp Denies cough, Denies dyspnea and Denies wheezing GI Denies abdominal pain, Denies melena, Denies hematochezia, Denies change in bowel habits, Denies dyspepsia and Denies nausea Denies hematuria and Denies dysuria Musc Denies abnormal gait, Denies myalgias, Denies arthralgias, Denies numbness and Denies tingling Skin/Breast Denies rash, Denies unusual bruising and Denies wounds Neuro Denies abnormal gait, Denies dizziness, Denies headache(s), Denies memory loss, Denies numbness, Denies Sensory deficit (Neuro), Denies tingling and Denies weakness Psych Denies anxiety, Denies depression and Denies memory loss Endo Denies cold intolerance, Denies fatigue, Denies heat intolerance, Denies polydipsia and Denies polyuria Hoang/Lymph Denies easy bleeding and Denies easy bruising Aller/Immun Denies wheezing Physical exam (Primary Care) Vital Signs: Last Vital Signs Temp 97.7 F 03/20/24 08:37 Pulse 82 03/20/24 08:37 Resp 14 03/20/24 08:37 BP 126/80 03/20/24 08:37 Pulse Ox 98 03/20/24 08:37 Oxygen Delivery Method Room Air 03/20/24 08:37 BMI result Body Mass Index 35.5 Tobacco/Smoking Status: Tobacco use Status Tobacco use date assessed 03/20/24 03/20/24 08:45 Patient Tobacco Use Status Never used Tobacco 03/20/24 08:45 e-Cigarette/Vaping Use Never Used 03/20/24 08:45 PHQ-9: PHQ-9 Score PHQ-9: Total score 0 03/20/24 08:45 Depression Screening Interpretation: Negative Thrive Assessment: Date of Thrive Assessment Date Thrive assessed 03/20/24 03/20/24 08:45 Currently or been in a relationship where the following occur: no concerns reported Const Other: General: no acute distress, well developed, alert and awake Nutritional Appearance: well nourished Orientation/consciousness: patient oriented x3 HENMT Head: Yes normocephalic and Yes atraumatic Ears: hearing grossly normal bilaterally and TM's normal bilaterally General nose exam: Normal external nose present and Normal nares present Mouth: Normal oral and palatal mucosa present and moist mucous membranes Teeth and gingiva: dentition normal Throat: Yes oropharynx normal Eyes Pupils: Equal, round and reactive pupils present and Pupil accommodation reflex normal EOM: EOMs intact bilaterally Neck Neck: Yes normal visual inspection, Yes no lymphadenopathy and Yes trachea midline Thyroid: Thyroid normal Carotids: no bruits Lymphatic: no lymphadenopathy noted Chest Chest palpation & inspection: normal inspection of the chest Resp Effort & Inspection: normal respiratory effort Auscultation: clear to auscultation bilaterally Cardio Rate: regular rate Rhythm: regular rhythm Heart sounds: S1 normal heart sound present, S2 normal heart sound present, no gallops, no murmurs and no rubs Bruits: no abdominal aortic bruits and no carotid bruits GI Palpation (GI): No Abdominal aortic bruit present, Soft to palpation, nontender, No hepatosplenomegaly present and No Rebound tenderness present Auscultation: normal bowel sounds General: Yes no CVA tenderness Back/Spine/Pelvis Back: no CVA tenderness Cervical Spine: cervical ROM normal and No Cervical spine tenderness Thoracic/Lumbar Spine: thoraco-lumbar ROM normal, No pain with thoraco-lumbar ROM, No thoracic spinal tenderness and No lumbar spinal tenderness Skin General: warm and dry. Normal skin color. Normal skin turgor Lesions: no lesions Rashes: no rashes Trauma: no lacerations or abrasions Wounds: no wounds Nails: normal Neuro General: patient oriented x3, gait normal and CN's II-XI intact bilaterally Cranial nerves: Yes Equal, round and reactive pupils present Cognition (Neuro): normal cognition Gait exam (Neuro): Normal gait present Motor exam (neuro): 5/5 motor strength present throughout Sensory Exam: No Sensory deficit (Neuro) Deep tendon reflexes (DTR's): Right patellar reflex intensity grade: 2+ and Left patellar reflex intensity grade: 2+ Extrem General: Yes normal to inspection, No edema and No calf tenderness Psych Appearance: grossly normal Affect: normal affect Attitude: cooperative Thought process: Normal thought process present Assessment and Plan Assessment & Plan (1) Normal physical examination, routine: Code(s): Z00.00 - Encounter for general adult medical examination without abnormal findings Plan: No significant physical restrictions or limitations noted Continue current treatment regimen Healthy diet and routine exercise encouraged Continue follow-up with diesel service technician as planned Advised to get lab work done and follow-up in 6 weeks for diabetes Return sooner with symptoms or concerns Verbalized understanding and agreed with treatment plan (2) Diabetes type 2, uncontrolled: Code(s): E11.65 - Type 2 diabetes mellitus with hyperglycemia Qualifiers: Glycemic state: with hyperglycemia Qualified Code(s): E11.65 - Type 2 diabetes mellitus with hyperglycemia Plan: Last A1c in January was 7.4%, slightly above goal of less than 7.0% Continue current treatment regimen ADA diet and routine exercise encouraged Follow-up in 6 weeks Verbalized understanding and agreed with treatment plan (3) Hyperlipidemia LDL goal <100: Code(s): E78.5 - Hyperlipidemia, unspecified Plan: Will recheck lipid panel and make changes as needed (4) Obesity due to excess calories: Code(s): E66.09 - Other obesity due to excess calories Qualifiers: Obesity classification: adult class 2 (BMI 35 - 39.9) Serious obesity comorbidity presence: with serious comorbidity Body mass index: BMI 35.0-35.9 Qualified Code(s): E66.01 - Morbid (severe) obesity due to excess calories; Z68.35 - Body mass index [BMI] 35.0-35.9, adult Plan: He currently weighs 227 lb, BMI is 35.5 He notes physical activities but no structured exercise. He notes that he has been making healthy dietary changes Declines referral to dietitian or weight management at this time Healthy diet and routine exercise encouraged He may notify his PCP if he changes his mind on referral to dietitian or weight management Follow-up as needed Verbalized understanding and agreed with the plan (5) Pigmented skin lesion of uncertain behavior of head: Code(s): L81.9 - Disorder of pigmentation, unspecified Plan: He was evaluated by [facility] about 2 months ago for lesion to the back of his head; biopsy confirmed amyloidosis; was referred to a collar tacker who told him he should be referred to a different specialist Encouraged to follow-up with Dermatology to ensure proper follow-up referral Verbalized understanding and agreed with the plan Orders: Orders Complete Blood Count Auto Diff Today Esperanza Wade CNP Z00.00 - Encounter for general adult medical examination without abnormal findings Comprehensive [place]. Panel Fast Today Esperanza Wade CNP Z00.00 - Encounter for general adult medical examination without abnormal findings Lipid Panel Today Esperanza Wade CNP Z00.00 - Encounter for general adult medical examination without abnormal findings TSH reflex Free T4 Today Esperanza Wade CNP Z00.00 - Encounter for general adult medical examination without abnormal findings UA CC w/rflx Micro + Cult Today Esperanza Wade CNP Z00.00 - Encounter for general adult medical examination without abnormal findings PSA, Ultra Sensitive Today Esperanza Wade CNP Z00.00 - Encounter for general adult medical examination without abnormal findings Medications: Changed From Lantus Solostar U-100 Insulin (insulin glargine) 86 units (0.86 mL) subcut DAILY 15 mL 3RF NS To insulin glargine (Lantus Solostar U-100 Insulin) 60 units subcut DAILY Karlos East MD Coding Level of Care Code Est Pt Prev Care 40-64y(89680) Diagnoses Normal physical examination, routine Z00.00 Uncontrolled type 2 diabetes mellitus with hyperglycemia E11.65 Glycemic state: with hyperglycemia Hyperlipidemia LDL goal <100 E78.5 Class 2 severe obesity due to excess calories with serious comorbidity and body mass index (BMI) of 35.0 to 35.9 in adult E66.01; Z68.35 Obesity classification: adult class 2 (BMI 35 - 39.9) Serious obesity comorbidity presence: with serious comorbidity Body mass index: BMI 35.0-35.9 Pigmented skin lesion of uncertain behavior of head L81.9 Additional Codes ROBEL-7 Assessment Billing - ROBEL-7 Assessment Tool: ROBEL-7 Assessment 85754 ([id number])
== END 2024-03-20 09:29 | disposition home or self-care (01) ==
PROVIDERS: PCP Nurse Practitioner Family; Visit Provider Nurse Practitioner Family
DX: Z00.00 Encounter for general adult medical examination without abnormal findings (principal); E11.65 Type 2 diabetes mellitus with hyperglycemia; E66.01 Morbid (severe) obesity due to excess calories; Z68.35 Body mass index [BMI] 35.0-35.9, adult; E78.5 Hyperlipidemia, unspecified; L81.9 Disorder of pigmentation, unspecified
CPT/HCPCS: 99396

== ENCOUNTER 2024-05-12 07:36 | Outpatient (REF) | payer OTHER, SELFPAY ==
[2024-05-12 10:20] LABS: MANUAL DIFF FLAG NO
[2024-05-12 10:22] LABS: Appearance Urine Clear; Color Urine Yellow; Glucose Urine UA 100 mg/dL (Negative); Leukocyte Esterase Urine Negative (Negative); Nitrite Urine Negative (Negative); PH 5.5 (5.0-9.0); Urine Blood Negative (Negative); Urine Ketones Negative (Negative); Urine Protein Negative (Neg-Trace)
[2024-05-12 10:26] LABS: Basophils Percent Auto 0.5 % (0-2); Eosinophils Absolute Auto 0.2 X10*3/uL (0.0-0.4); Eosinophils Percent Auto 2.8 % (0-4); Hematocrit 43.4 % (42.0-52.0); Hemoglobin 14.7 g/dl (14.0-18.0); Imm Gran Abs Auto 0.01 X10*3/uL (0.00-0.03); Imm Gran Pct Auto 0.2 % (0.0-0.4); Lymphocytes Percent Auto 32.5 % (20-40); Mean Corpuscular HGB Conc 33.9 g/dl (31.0-36.0); Mean Corpuscular Hemoglobin 29.2 pg (27.0-33.0); Mean Corpuscular Volume 86.3 fL (80.0-98.0); Mean Platelet Volume 9.6 fL (9.4-12.4); Monocytes Absolute Auto 0.3 X10*3/uL (0.1-1.2); Monocytes Percent Auto 4.4 % (2-11); Neutrophils Absolute Auto 3.7 x10*3/uL (2.0-8.3); Neutrophils Percent Auto 59.6 % (45-73); Platelet Count 219 X10*3/uL (160-400); Red Blood Count 5.03 X10*6/uL (4.60-5.80); Red Cell Distribution Width 12.7 % (11.0-16.0); White Blood Count 6.2 X10*3/uL (4.8-10.8)
[2024-05-12 11:36] LABS: TSH reflex Free T4 1.55 uIU/mL (0.32-4.0)
[2024-05-12 11:37] LABS: Anion Gap 14 (12-20)
[2024-05-12 11:42] LABS: Alanine Aminotransferase 57 U/L (0-40); Albumin Level 3.9 g/dL (3.5-5.0); Alkaline Phosphatase 60 U/L (39-117); Aspartate Amino Transferase 25 U/L (5-37); Bilirubin Total 0.3 mg/dL (0.0-1.0); Blood Urea Nitrogen 12 mg/dL (9-16); Calcium 9.2 mg/dL (8.4-10.2); Carbon Dioxide 24 mmol/L (22-29); Chloride 106 mmol/L (96-108); Cholesterol 186 mg/dL (<200); Estimated Glomerular Filt Rate > 60; Glucose Fasting 176 mg/dL (60-99); HDL Cholesterol 34 mg/dL (>40); LDL Cholesterol Calculated 109 mg/dL (<100); Potassium 4.2 mmol/L (3.3-5.1); Sodium 140 mmol/L (135-145); Total Protein 6.9 g/dL (6.5-8.0); Triglycerides 216 mg/dL (<150)
[2024-05-29 02:03] LABS: PSA, Ultra Sensitive 0.57 ng/mL
== END 2024-05-12 07:37 | disposition home or self-care (01) ==
LOC: HO.HMGCLDS 07:36
PROVIDERS: PCP Nurse Practitioner Family; Visit Provider Nurse Practitioner Family
DX: Z00.00 Encounter for general adult medical examination without abnormal findings (principal); Z12.5 Encounter for screening for malignant neoplasm of prostate
CPT/HCPCS: 36415; 80053; 80061; 81003; 84153; 84443; 85025

== ENCOUNTER 2024-05-12 11:53 | Outpatient (AMB) | payer OTHER, SELFPAY ==
--- NOTE | 2024-05-12 12:05 | MHC.PC.OV ---
Vital Signs 05/12/24 12:13 Height 5 ft 7 in Weight 220 lb 6 oz BMI 34.5 BP 110/80 Blood Pressure Location Lt brachial Position Sitting Respiration 16 Pulse 73 Pulse Source Pulse Oximeter Pulse Oximetry (%) 98 Oxygen Delivery Method Room Air Intake Visit Reasons: 6 wks DM Intake Note: Diabetes follow up Allergies iopamidol [From Isovue-370] Allergy (Mild, Verified 05/12/24 12:28) HIVES ON HEAD AND UPPER ARMS. Contrast Dye Allergy (Unknown, Uncoded 05/12/24 12:28) hives contrast dye Allergy (Unknown, Uncoded 05/12/24 12:28) hives Medication List - Last Reconciled 05/12/24 by Esperanza Wade CNP atorvastatin 80 mg PO BEDTIME blood sugar diagnostic (FreeStyle Lite Strips) TEST 4 TIMES A DAY blood-glucose meter (FreeStyle Lite Meter kit) 4 x/day blood-glucose sensor (FreeStyle Juan Jose 3 Sensor device) FOR GLUCOSE MONITORING CHANGE SENSOR EVERY 14 DAYS insulin glargine (Lantus Solostar U-100 Insulin) 60 units subcut DAILY insulin lispro (Humalog KwikPen (U-100) Insulin) 16 units for meals, 2 units for snacks, plus up to 6 units additional units at meals for elevated blood sugars as directed subcut 3 times a day; 90 days lancets As directed 4 times a day pen needle, diabetic (Comfort EZ Pen [place]) As directed injects 4 times a day semaglutide (Ozempic) 2 mg (0.75 mL) subcut QWEEK Tobacco use date assessed: 03/20/24 Dental Screening Dental Screen Date: 03/20/24 HPI HPI Comments History of Present Illness Details 44-year-old male presents for diabetes follow-up He admits to taking his medications as prescribed without adverse reactions He offers no complaints and denies acute symptoms at this time He admits to making healthy dietary changes, including limiting carbs, and walking 5 miles daily. However, he notes that he has been consuming significant amount of whole milk He is followed by [facility] endocrinology. His last A1c was 7.4%. He notes that he was instructed to follow up in 5 months, and has an appointment in the beginning of July [facility] Medical History Long-term insulin use in type 2 diabetes Hepatic steatosis Hypertriglyceridemia Hematuria Hyperlipidemia LDL goal <100 Obesity due to excess calories Diabetes type 2, uncontrolled Surgical History Hx of wisdom tooth extraction Hx of appendectomy Family History Father DM2 (diabetes mellitus, type 2) Myocardial infarction Deep vein thrombosis Peripheral vascular disease History of left below knee amputation History of above-knee amputation Mother Hypertension Hyperlipidemia Fibromyalgia Diabetes Social History Household Members: Family Household Members Other:: brother Housing: House Alcohol intake: current Patient Tobacco Use Status: Never used Tobacco e-Cigarette/Vaping Use: Never Used service: Yes Current occupational status: employed Current occupation: [employer] Current occupational exposures/hazards: No Cognitive needs: No Hearing needs: No Vision needs: No Questionnaire Thrive Questionnaire Date Thrive assessed: 03/20/24 ROBEL-7 AMB Questionnaire ROBEL-7 Date ROBEL - 7 assessed: 03/20/24 Source: Developed by Drs. Karlos Muhammad, Stephanie Abebe, Fredi Simon and colleagues, with an educational odell from [employer]. Review of Systems Const Details: Const Denies chills, Denies fatigue, Denies fever(s), Denies headache(s) and Denies weakness ENT Denies dizziness and Denies headache(s) Card Denies chest pain, Denies lightheadedness, Denies dyspnea and Denies other (Palpitations) Resp Denies cough, Denies dyspnea, Denies wheezing and Denies other ( shortness of breath) GI Denies abdominal pain, Denies melena, Denies hematochezia, Denies change in bowel habits, Denies dyspepsia and Denies nausea Denies hematuria and Denies dysuria Musc Denies abnormal gait, Denies myalgias, Denies arthralgias, Denies numbness and Denies tingling Skin/Breast Denies rash, Denies unusual bruising and Denies wounds Neuro Denies abnormal gait, Denies dizziness, Denies headache(s), Denies memory loss, Denies numbness, Denies Sensory deficit (Neuro), Denies tingling and Denies weakness Psych Denies anxiety, Denies depression, Denies memory loss Endo Denies cold intolerance, Denies fatigue, Denies heat intolerance, Denies polydipsia and Denies polyuria Aller/Immun Denies wheezing Physical exam (Primary Care) Vital Signs: Last Vital Signs Pulse 73 05/12/24 12:13 Resp 16 05/12/24 12:13 BP 110/80 05/12/24 12:13 Pulse Ox 98 05/12/24 12:13 Oxygen Delivery Method Room Air 05/12/24 12:13 BMI result Body Mass Index 34.5 Tobacco/Smoking Status: Tobacco use Status Tobacco use date assessed 03/20/24 05/12/24 12:07 Patient Tobacco Use Status Never used Tobacco 05/12/24 12:07 e-Cigarette/Vaping Use Never Used 05/12/24 12:07 Thrive Assessment: Date of Thrive Assessment Date Thrive assessed 03/20/24 05/12/24 12:07 Const Other: General: no acute distress and well developed Nutritional Appearance: well nourished Orientation/consciousness: patient oriented x3 HENMT Head: Yes normocephalic and Yes atraumatic Eyes General: appearance normal, both eyes and all related structures Pupils: Equal, round and reactive pupils present EOM: EOMs intact bilaterally Resp Effort & Inspection: normal respiratory effort Auscultation: clear to auscultation bilaterally Cardio Rate: regular rate Rhythm: regular rhythm Heart sounds: S1 normal heart sound present, S2 normal heart sound present, no gallops, no murmurs and no rubs GI Palpation (GI): No Abdominal aortic bruit present, Soft to palpation, nontender, No hepatosplenomegaly present and No Rebound tenderness present Auscultation: normal bowel sounds General: Yes no CVA tenderness Back/Spine/Pelvis Back: no CVA tenderness Cervical Spine: cervical ROM normal and No Cervical spine tenderness Thoracic/Lumbar Spine: thoraco-lumbar ROM normal, No pain with thoraco-lumbar ROM, No thoracic spinal tenderness and No lumbar spinal tenderness Extrem General: Yes normal to inspection, No edema and No calf tenderness Skin General: warm and dry. Normal skin color. Normal skin turgor Neuro General: patient oriented x3, gait normal and no focal neuro deficit Cranial nerves: Yes Equal, round and reactive pupils present Cognition (Neuro): normal cognition Gait exam (Neuro): Normal gait present Sensory Exam: No Sensory deficit (Neuro) Psych Appearance: grossly normal Affect: normal affect Attitude: cooperative Thought process: Normal thought process present Results AMB Hemoglobin A1c AMB Hemoglobin A1c 8.0 % Last Edit by Trixie Lim CMA on 05/12/24 12:18 Results Reviewed Results Reviewed: Laboratory Last Values Hgb A1c (Clinic) 8.0 % (4.0-6.0) H 05/12/24 12:16 Assessment and Plan Assessment & Plan (1) Diabetes type 2, uncontrolled: Code(s): E11.65 - Type 2 diabetes mellitus with hyperglycemia Qualifiers: Glycemic state: with hyperglycemia Qualified Code(s): E11.65 - Type 2 diabetes mellitus with hyperglycemia Plan: A1c today is 8%, above goal of less than 7.0%. Previous A1c was 7.4% Will increase Lantus to 70 units daily. Advised to take as prescribed Continue with semaglutide 2 mg weekly and lispro per sliding scale Follow-up with endocrinology as planned Return in 3 months or sooner with symptoms or concerns Verbalized understanding and agreed with the treatment plan (2) Hyperlipidemia LDL goal <100: Code(s): E78.5 - Hyperlipidemia, unspecified Plan: Recent lab results reviewed with the patient; triglycerides and LDL levels are elevated, 216 and 109 respectively; HDL is low, 34 LDL goal is less than 100 Advised to limit foods high in saturated fat and avoid foods high in trans fat. Encouraged to avoid drinking whole milk; may drink 1 or 2% Routine exercise encouraged Will recheck lipid panel level. 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
[2024-05-12 12:13] VITALS: BP 110/80; PULSE 73; RESP 16; O2SAT 98; BMI 34.5
== END 2024-05-12 12:47 | disposition home or self-care (01) ==
PROVIDERS: PCP Nurse Practitioner Family; Visit Provider Nurse Practitioner Family
DX: E11.65 Type 2 diabetes mellitus with hyperglycemia (principal); E78.5 Hyperlipidemia, unspecified; Z79.4 Long term (current) use of insulin
CPT/HCPCS: 83036; 99214

== ENCOUNTER 2024-07-07 09:08 | Outpatient (AMB) | payer OTHER, SELFPAY ==
--- NOTE | 2024-07-07 07:12 | A.OFFVIS_ITS ---
Vital Signs 07/07/24 09:16 Height 5 ft 7 in Weight 222 lb 10.67 oz BMI 34.9 Intake Visit Reasons: T2DM/LVM Intake Note: Patient presents today to re-establish treatment for Type Diabetes Mellitus: Last Diabetic eye exam was on: DUE Last Podiatry exam was on: Does not see a Commercial Credit Analyst Most recent HbA1c: 8.0%, 05/12/2024 Random Glucose- 150 mg/dL, Today Customer Service Rep Required: No Accompanied by: Self / Same As Patient Allergies iopamidol [From Isovue-370] Allergy (Mild, Verified 07/07/24 09:18) HIVES ON HEAD AND UPPER ARMS. Contrast Dye Allergy (Unknown, Uncoded 07/07/24 09:18) hives contrast dye Allergy (Unknown, Uncoded 07/07/24 09:18) hives HPI Comments Details: Patient is 44 yo male with DM type 2 diagnosed around 2013 who presents for management of diabetes. He is currently on basal bolus insulin plus GLP 1 agonist. His PCP recently increased his Lantus to 80 units for an A1c of 8% on 05/12/2024. Previous A1c 01/25/2024 was 7.4% Past medical history: HTn, DM2, HLD, hypertriglyceridemia and fatty liver Micro and macrovascular complications: none known Diabetes medications: Metformin 500 2 pills BId not taking GI upset even with XR Lantus 80 units Humalog 18 units 3 times a day plus snack coverage correction for blood sugars over 200 +2 units, over 250+ 4 units and over 300+ 6 units Ozempic 2 mg Qwkly He was on mounjaro in the past and found it worked better for him in controlling his glucose. He was able to get this through his insurance but is co-pay increase dramatically. Took Jardiance in the past but had symptoms upset stomach Freestyle juan jose sensor 3 average glucose: 176 14 day continuous glucose sensor report reviewed Glucose Management indicator 7.5 % Time CGM active 97 % TIme in ranges: 9 % very high (above 250) 20 % high (181-250) 63 % in range (70-180] 0 % low (69-55) 0 % very low (below 54) 27.5 Glucose variability [ ] (target <36%) Interpretation of CGMS [glucose starting at 00:00 180 gradually drifting down to target range bump slightly for lunch and substantially for supper ] denies numbness, tingling, cramping in lower extremities Hypoglycemia: denies Hyperglycemia: denies polyuria No neuropathy: denies numbness, tingling, cramping in lower extremities No retinopathy: Last eye exam was 08/29 and he will schedule a this year's exam. No Nephropathy: 05/21/23 microalbumin 15.0 05/17/24 eGFR>60 HLD on statin most recent 05/2024 LDL 109 Exercise: goes to camp and does outdoor projects. [facility] Medical History Long-term insulin use in type 2 diabetes Hepatic steatosis Hypertriglyceridemia Hematuria Hyperlipidemia LDL goal <100 Obesity due to excess calories Diabetes type 2, uncontrolled Surgical History Hx of wisdom tooth extraction Hx of appendectomy Family History Father DM2 (diabetes mellitus, type 2) Myocardial infarction Deep vein thrombosis Peripheral vascular disease History of left below knee amputation History of above-knee amputation Mother Hypertension Hyperlipidemia Fibromyalgia Diabetes Social History Household Members: Family Household Members Other:: brother Housing: House Alcohol intake: current Patient Tobacco Use Status: Never used Tobacco e-Cigarette/Vaping Use: Never Used service: Yes Current occupational status: employed 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 Absence of acromegalic features. Neck exam reveals nl size thyroid about 15 gms. No thyroid nodules palpable. No carotid bruits present. Lungs CTA. Heart S1 S2, Reg R/R. No M/R G. Skin exam reveals absence of vitiligo or acanthosis nigricans. No edema Visual exam of foot performed. No ulcerations or open lesions. No inter digit maceration or fissuring. onychomycosis left great toe nail, no callouses. Sensation intact to monofilament exam. Vibratory sensation is normal with 128 Hz tuning fork. Office Procedures Glucose Monitoring Details Details: See [facility] [address] - Glucose monitoring, continuous-physician I&R Procedure code (CPT) selection complete Results Reviewed Results Reviewed: Laboratory Last Values Glucose (Clinic) 150 mg/dL (60-115) H 07/07/24 09:21 Laboratory Tests 05/21/23 08/20/23 01/29/24 09:52 09:25 08:51 Plt Count Potassium Estimated GFR Hgb A1c (Clinic) 9.7 H 7.4 H AST ALT Triglycerides Cholesterol LDL Cholesterol, Calc HDL Cholesterol TSH Urine Microalbumin 15.0 05/12/24 05/12/24 08:09 12:16 Plt Count 219 Potassium 4.2 Estimated GFR > 60 Hgb A1c (Clinic) 8.0 H AST 25 ALT 57 H Triglycerides 216 H Cholesterol 186 LDL Cholesterol, Calc 109 H HDL Cholesterol 34 L TSH 1.55 Urine Microalbumin Sixty Assessment & Plan Assessment & Plan (1) Diabetes type 2, uncontrolled: Code(s): E11.65 - Type 2 diabetes mellitus with hyperglycemia Category: Medical Qualifiers: Glycemic state: with hyperglycemia Qualified Code(s): E11.65 - Type 2 diabetes mellitus with hyperglycemia Plan: This is a 44-year-old white male with a history of type 2 diabetes being treated with Ozempic and basal-bolus insulin with an A1c of 8% glycemic control and no known microvascular or macrovascular complication. Plan is to increase the Humalog by 4 units at supper, if this does not bring glucose avg to less than 154, will increase lunch humalog. Will switch back to Mounjaro as this was more effective for patient. Temporarily change to freestyle 2 by freestyle 3 is not available. We discussed CeQur insulin patch to minimize injections, islet insulin pump and Omnipod. Reviewed pros and cons of each he will consider and if he decides to go this route we will need additional diabetes education. (2) Hyperlipidemia LDL goal <100: Code(s): E78.5 - Hyperlipidemia, unspecified Category: Medical Plan: Currently on atorvastatin 80 mg with an LDL of 109 measured 05/30. Orders: Orders AMB Glucose Monitoring Today E11.65 - Type 2 diabetes mellitus with hyperglycemia Medications: New flash glucose sensor (FreeStyle Juan Jose 2 Sensor kit) As directed 3 ea 3RF E11.65 - Type 2 diabetes mellitus with hyperglycemia tirzepatide (Mounjaro) 5 mg (0.5 mL) subcut QWEEK 6 mL 3RF E11.65 - Type 2 diabetes mellitus with hyperglycemia, Z79.4 - prison (current) use of insulin Coding Level of Care Code Tele Est Pt Level 4 (58900) Diagnoses Uncontrolled type 2 diabetes mellitus with hyperglycemia E11.65 Glycemic state: with hyperglycemia Hyperlipidemia LDL goal <100 E78.5 CPT Codes Details - CPT: 58483 - Glucose monitoring, continuous-physician I&R ([id number])
[2024-07-07 09:16] VITALS: BMI 34.9
[2024-07-07 09:24] LABS: Glucose, Whole Blood 150 mg/dL (60-115)
== END 2024-07-07 09:54 | disposition home or self-care (01) ==
PROVIDERS: PCP Nurse Practitioner Family; Visit Provider Nurse Practitioner Adult Health
DX: E11.65 Type 2 diabetes mellitus with hyperglycemia (principal); E78.5 Hyperlipidemia, unspecified
CPT/HCPCS: 95251; 99214

== ENCOUNTER → 2024-07-07 09:08 | Outpatient (BNVA) | payer OTHER, SELFPAY | PROVIDERS: PCP Nurse Practitioner Family; Visit Provider Nurse Practitioner Adult Health | DX: E11.65 Type 2 diabetes mellitus with hyperglycemia (principal); E78.5 Hyperlipidemia, unspecified; Z79.4 Long term (current) use of insulin; Z79.85 Long-term (current) use of injectable non-insulin antidiabetic drugs; Z79.899 Other long term (current) drug therapy | CPT/HCPCS: 82947 ==

== ENCOUNTER 2024-08-18 09:11 | Outpatient (AMB) | payer OTHER, SELFPAY ==
--- NOTE | 2024-08-18 09:15 | A.OFFPC_ITS ---
Vital Signs 08/18/24 09:21 Height 5 ft 7 in Weight 226 lb 2 oz BMI 35.4 BP 128/86 Blood Pressure Location Lt brachial Position Sitting Respiration 16 Pulse 84 Pulse Source Pulse Oximeter Temp 97.8 F Temp Source Oral Pulse Oximetry (%) 97 Oxygen Delivery Method Room Air Intake Visit Reasons: 3 mos DM and htn Intake Note: patient here for 3 months follow up on DM and HLD Coil Builder Required: No Allergies iopamidol [From Isovue-370] Allergy (Mild, Verified 08/18/24 09:27) HIVES ON HEAD AND UPPER ARMS. Contrast Dye Allergy (Unknown, Uncoded 08/18/24 09:27) hives contrast dye Allergy (Unknown, Uncoded 08/18/24 09:27) hives Medication List - Last Reconciled 08/18/24 by Esperanza Wade CNP atorvastatin 80 mg PO BEDTIME blood sugar diagnostic (FreeStyle Lite Strips) TEST 4 TIMES A DAY blood-glucose meter (FreeStyle Lite Meter kit) 4 x/day blood-glucose sensor (FreeStyle Juan Jose 3 Plus Sensor device) As directed flash glucose sensor (FreeStyle Juan Jose 2 Sensor kit) As directed insulin glargine (Lantus Solostar U-100 Insulin) 70 units (0.7 mL) subcut DAILY 30 days insulin lispro (Humalog KwikPen (U-100) Insulin) 16 units for meals, 2 units for snacks, plus up to 6 units additional units at meals for elevated blood sugars as directed subcut 3 times a day; 90 days lancets As directed 4 times a day pen needle, diabetic (Comfort EZ Pen [place]) As directed injects 4 times a day semaglutide (Ozempic) 2 mg (0.75 mL) subcut QWEEK tirzepatide (Mounjaro) 5 mg (0.5 mL) subcut QWEEK Tobacco use date assessed: 08/18/24 Dental Screening Dental Screen Date: 08/18/24 Did you have a dental visit in the last 12 months?: Yes Did you have a dental problem in the last 6 months where you did not have access to dental care?: No Was dental information given to patient?: Patient has dentist HPI HPI Comments History of Present Illness Details 44-year-old male presents for hyperlipid emia and diabetes follow-up. He admits to taking his medications without adverse reactions. He notes that he has been taking Lantus 76 units daily instead of prescribed 70 units daily since July. He [place] [facility] [place]. His last appointment was on 08/07/2024. Reports pain to the muscle behind his right shoulder, with certain movement, for the past 4 months. He denies fall, injury, or trauma. He takes Advil every so often. [facility] Medical History Long-term insulin use in type 2 diabetes Hepatic steatosis Hypertriglyceridemia Hematuria Hyperlipidemia LDL goal <100 Obesity due to excess calories Diabetes type 2, uncontrolled Surgical History Hx of wisdom tooth extraction Hx of appendectomy Family History Father DM2 (diabetes mellitus, type 2) Myocardial infarction Deep vein thrombosis Peripheral vascular disease History of left below knee amputation History of above-knee amputation Mother Hypertension Hyperlipidemia Fibromyalgia Diabetes Social History Household Members: Family Household Members Other:: brother Housing: House Alcohol intake: current Patient Tobacco Use Status: Never used Tobacco e-Cigarette/Vaping Use: Never Used Second Hand Smoke Exposure: No service: Yes Current occupational status: employed 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 1. Little interest or pleasure in doing things: not at all 2. Feeling down, depressed, or hopeless: not at all 3. Trouble falling or staying asleep, or sleeping too much: several days 4. Feeling tired or having little energy: several days 5. Poor appetite or overeating: not at all 6. Feeling bad about yourself - or that you are a failure or have let yourself or your family down: not at all 7. Trouble concentrating on things, such as reading the newspaper or watching television: several days 8. Moving or speaking so slowly that other people could have noticed. Or the opposite - being so fidgety or restless that you have been moving around a lot more than usual: not at all 9. Thoughts that you would be better off or of hurting yourself in some way: not at all Total score: 3 Depression Screening Interpretation: Negative Depression Screening Done: Yes 75434 - PHQ-9 Billing: Yes Source: Developed by Drs. Karlos Muhammad, Stephanie Abebe, Fredi Simon and colleagues, with an educational odell from [employer]. Thrive Questionnaire Date Thrive assessed: 08/18/24 I am a: Patient What is your living situation today?: I have a steady place to live Within the past 12 months, did the food you bought not last and you didn't have the money to get more?: Never true Within the past 12 months, did you worry whether your food would run out before you got money to buy more?: Never true Do you have trouble paying for medicines?: No Do you have trouble getting transportation to medical appointments?: No Do you have trouble paying your heating and electricity bill?: No Do you have trouble taking care of your child, family member or friend?: No Do you have trouble with day-to-day activities such as bathing, preparing meals, shopping, managing finances, etc.?: No Are you currently unemployed and looking for a job?: No Are you interested in more education?: No Please select the resources that you would like help with: None Currently or been in a relationship where the following occur: No concerns reported THRIVE Score: 0 AUDIT C Alcohol Use Questionnaire (AUDIT-C) 1. How often do you have a drink containing alcohol?: Monthly or less 2. How many drinks containing alcohol do you have on a typical day when you are drinking?: 3 or 4 3. How often do you have six or more drinks on one occasion?: Never Total Score: 2 ROBEL-7 AMB Questionnaire ROBEL-7 Date ROBEL - 7 assessed: 08/18/24 Feeling nervous, anxious, or on edge: 0 = Not at all Not being able to stop or control worryin = Not at all Worrying too much about different things: 0 = Not at all Trouble relaxin = Not at all Being so restless that it is hard to sit still: 0 = Not at all Becoming easily annoyed or irritable: 0 = Not at all Feeling afraid as if something awful might happen: 0 = Not at all Total ROBEL-7 score (0-4 normal; 5-9 mild; 10-14 moderate; 15-21 severe): 0 Source: Developed by Drs. Karlos Muhammad, Stephanie Abebe, Fredi Simon and colleagues, with an educational odell from [employer]. ROBEL-7 Assessment Billing ROBEL-7 Assessment Tool: ROBEL-7 Assessment 09934 Review of Systems Const Details: Const Denies chills, Denies fatigue, Denies fever(s), Denies headache(s) and Denies weakness ENT Denies dizziness and Denies headache(s) Card Denies chest pain, Denies lightheadedness, Denies dyspnea and Denies other (Palpitations) Resp Denies cough, Denies dyspnea, Denies wheezing and Denies other ( shortness of breath) GI Denies abdominal pain, Denies melena, Denies hematochezia, Denies change in bowel habits, Denies dyspepsia and Denies nausea Denies hematuria and Denies dysuria Musc Reports as per HPI Skin/Breast Denies rash, Denies unusual bruising and Denies wounds Neuro Denies abnormal gait, Denies dizziness, Denies headache(s), Denies memory loss, Denies numbness, Denies Sensory deficit (Neuro), Denies tingling and Denies weakness Psych Denies anxiety, Denies depression, Denies memory loss Endo Denies cold intolerance, Denies fatigue, Denies heat intolerance, Denies polydipsia and Denies polyuria Aller/Immun Denies wheezing Physical exam (Primary Care) Vital Signs: Last Vital Signs Temp 97.8 F 08/18/24 09:21 Pulse 84 08/18/24 09:21 Resp 16 08/18/24 09:21 BP 128/86 08/18/24 09:21 Pulse Ox 97 08/18/24 09:21 Oxygen Delivery Method Room Air 08/18/24 09:21 BMI result Body Mass Index 35.4 Tobacco/Smoking Status: Tobacco use Status Tobacco use date assessed 08/18/24 08/18/24 09:26 Patient Tobacco Use Status Never used Tobacco 08/18/24 09:18 e-Cigarette/Vaping Use Never Used 08/18/24 09:18 PHQ-9: PHQ-9 Score PHQ-9: Total score 3 08/18/24 16:07 Depression Screening Interpretation: Negative Thrive Assessment: Date of Thrive Assessment Date Thrive assessed 08/18/24 08/18/24 09:22 Currently or been in a relationship where the following occur: No concerns reported Const Other: General: no acute distress and well developed Nutritional Appearance: well nourished Orientation/consciousness: patient oriented x3 [facility] Head: Yes normocephalic and Yes atraumatic Eyes General: appearance normal, both eyes and all related structures Pupils: Equal, round and reactive pupils present EOM: EOMs intact bilaterally Resp Effort & Inspection: normal respiratory effort Auscultation: clear to auscultation bilaterally Cardio Rate: regular rate Rhythm: regular rhythm Heart sounds: S1 normal heart sound present, S2 normal heart sound present, no gallops, no murmurs and no rubs GI Palpation (GI): No Abdominal aortic bruit present, Soft to palpation, nontender, No hepatosplenomegaly present and No Rebound tenderness present Auscultation: normal bowel sounds General: Yes no CVA tenderness Back/Spine/Pelvis Back: no CVA tenderness Extrem General: Yes normal to inspection, No edema and No calf tenderness. Tenderness with palpation of the right trapezius muscle. No overt injury/trauma. Normal ROM of the right shoulder Skin General: warm and dry. Normal skin color. Normal skin turgor Neuro General: patient oriented x3, gait normal and no focal neuro deficit Cranial nerves: Yes Equal, round and reactive pupils present Cognition (Neuro): normal cognition Gait exam (Neuro): Normal gait present Sensory Exam: No Sensory deficit (Neuro) Psych Appearance: grossly normal Affect: normal affect Attitude: cooperative Thought process: Normal thought process present Results AMB Hemoglobin A1c AMB Hemoglobin A1c 8.0 % Last Edit by Rachel Mackenzie on 08/18/24 10:26 Results Reviewed Results Reviewed: Laboratory Last Values Hgb A1c (Clinic) 8.0 % (4.0-6.0) H 08/18/24 09:25 Coding Level of Care Code Est Pt Level 4 (62845) Complex EM visit Add On G2211 Diagnoses Uncontrolled type 2 diabetes mellitus with hyperglycemia E11.65 Glycemic state: with hyperglycemia Hyperlipidemia LDL goal <100 E78.5 Strain of right trapezius muscle S46.811A Additional Codes ROBEL-7 Assessment Billing - ROBEL-7 Assessment Tool: ROBEL-7 Assessment 03647 ([id number]) PHQ-9 - 15681 - PHQ-9 Billing: Yes ([id number]) Assessment & Plan Assessment & Plan (1) Diabetes type 2, uncontrolled: Code(s): E11.65 - Type 2 diabetes mellitus with hyperglycemia Category: Medical Qualifiers: Glycemic state: with hyperglycemia Qualified Code(s): E11.65 - Type 2 diabetes mellitus with hyperglycemia Plan: A1c today is 8.0%, above goal of less than 7.0%. Previous A1c was 8.0% Will increase Lantus to 80 units daily. Advised to take as prescribed Continue to take Humalog and Ozempic as prescribed ADA diet and routine exercise encouraged Advised to report blood glucose less than 70 Follow-up with endocrinology as planned Return in 3 months or sooner with symptoms or concerns Verbalized understanding and agreed with the treatment plan (2) Hyperlipidemia LDL goal <100: Code(s): E78.5 - Hyperlipidemia, unspecified Category: Medical Plan: Last triglycerides and LDL level 3 months ago were 216 and 109 respectively. LDL goal is less than 100 Continue to take atorvastatin as prescribed Advised to limit foods high in saturated fat and avoid foods high in trans fat Routine exercise encouraged Will check lipid panel level and make changes as needed Follow-up in 3 months Verbalized understanding and agreed with the plan (3) Strain of right trapezius muscle: Code(s): S46.811A - Strain of other muscles, fascia and tendons at shoulder and upper arm level, right arm, initial encounter Category: Medical Plan: Tenderness with palpation of the right trapezius muscle. No overt injury/trauma. Normal ROM of the right shoulder May take Tylenol ibuprofen as needed for pain or discomfort Warm/cool compresses or massage encouraged Advised to avoid strenuous activities until healed Follow-up with worsening or new symptoms Verbalized understanding and agreed with treatment plan Orders: Orders AMB Hemoglobin A1c Today Z13.9 - Encounter for screening, unspecified Lipid Panel Today E11.65 - Type 2 diabetes mellitus with hyperglycemia, E78.5 - Hyperlipidemia, unspecified Medications: Changed From insulin glargine (Lantus Solostar U-100 Insulin) 70 units (0.7 mL) subcut DAILY 30 days 21 mL 3RF To insulin glargine (Lantus Solostar U-100 Insulin) 80 units (0.8 mL) subcut DAILY 24 mL 3RF 30 days
[2024-08-18 09:21] VITALS: BP 128/86; PULSE 84; RESP 16; TEMP 36.6; O2SAT 97; BMI 35.4
== END 2024-08-18 09:41 | disposition home or self-care (01) ==
PROVIDERS: PCP Nurse Practitioner Family; Visit Provider Nurse Practitioner Family
DX: E11.65 Type 2 diabetes mellitus with hyperglycemia (principal); E78.5 Hyperlipidemia, unspecified; S46.811A Strain of other muscles, fascia and tendons at shoulder and upper arm level, right arm, initial encounter; Z13.9 Encounter for screening, unspecified

== ENCOUNTER → 2024-08-18 09:11 | Outpatient (BNVA) | payer OTHER, SELFPAY | PROVIDERS: PCP Nurse Practitioner Family; Visit Provider Nurse Practitioner Family | DX: E11.65 Type 2 diabetes mellitus with hyperglycemia (principal); E78.5 Hyperlipidemia, unspecified; S46.811A Strain of other muscles, fascia and tendons at shoulder and upper arm level, right arm, initial encounter; Z79.4 Long term (current) use of insulin; Z79.899 Other long term (current) drug therapy | CPT/HCPCS: 83036; 96127 ==

== ENCOUNTER 2024-09-05 11:09 | Outpatient (AMB) | payer OTHER, SELFPAY ==
[2024-09-05 14:26] VITALS: BP 122/80; PULSE 81; TEMP 36.7; O2SAT 96; BMI 35.7
--- NOTE | 2024-09-05 14:26 | AM.OFFWIN_ITS ---
Intake Vital Signs 09/05/24 14:26 Height 5 ft 7 in Weight 228 lb BMI 35.7 BP 122/80 Blood Pressure Location Lt brachial Position Sitting Pulse 81 Pulse Source Pulse Oximeter Temp 98.0 F Temp Source Oral Pulse Oximetry (%) 96 Oxygen Delivery Method Room Air Intake Visit Reasons: EP Shingles? Intake Note: Pt is here today c/o ? shingles: rash and burning sensation x1week from Lt chest onto upper back Patient Tobacco Use Status: Never used Tobacco Allergies iopamidol [From Isovue-370] Allergy (Mild, Verified 11/18/24 09:49) HIVES ON HEAD AND UPPER ARMS. Contrast Dye Allergy (Unknown, Uncoded 09/05/24 14:28) hives contrast dye Allergy (Unknown, Uncoded 09/05/24 14:28) hives HPI EP Shingles? HPI Details Patient is a 44-year-old male who comes the walk-in clinic complaining of a rash that has a burning sensation for the last week, from the left side of his anterior chest and wrapping around onto his left upper posterior back area. He does have underlying immuno compromising disease as he is diabetic, but reports that his sugars have been well controlled. He denies fever chills, weakness, vertigo or dizziness, myalgias or malaise, nausea vomiting or diarrhea abdominal pain, rash to other areas, or other significant associated symptoms. [facility] Medical History Long-term insulin use in type 2 diabetes Hepatic steatosis Hypertriglyceridemia Hematuria Hyperlipidemia LDL goal <100 Obesity due to excess calories Diabetes type 2, uncontrolled Surgical History Hx of wisdom tooth extraction Hx of appendectomy Family History Father DM2 (diabetes mellitus, type 2) Myocardial infarction Deep vein thrombosis Peripheral vascular disease History of left below knee amputation History of above-knee amputation Mother Hypertension Hyperlipidemia Fibromyalgia Diabetes Social History Household Members: Family Household Members Other:: brother Housing: House Alcohol intake: current Patient Tobacco Use Status: Never used Tobacco e-Cigarette/Vaping Use: Never Used Second Hand Smoke Exposure: No service: Yes Current occupational status: employed Current occupation: [employer] Current occupational exposures/hazards: No Cognitive needs: No Hearing needs: No Vision needs: No Review of Systems Const All systems reviewed & are unremarkable except as noted in HPI and below Physical Exam Vital Signs: Last Vital Signs Temp 98.0 F 09/05/24 14:26 Pulse 81 09/05/24 14:26 BP 122/80 09/05/24 14:26 Pulse Ox 96 09/05/24 14:26 Oxygen Delivery Method Room Air 09/05/24 14:26 BMI result Body Mass Index 35.7 Skin Other: Patient has vesicular rash with erythematous surrounding to the left upper chest and radiating to the left flank in onto his left posterior back area. Assessment & Plan Assessment & Plan (1) Shingles: Code(s): B02.9 - Zoster without complications Qualifiers: Herpes zoster complications: without complications Qualified Code(s): B02.9 - Zoster without complications Plan: Patient is a 44-year-old male who has what appears to be a shingles rash from the left side of his anterior chest and wrapping around onto his left upper posterior back area. He does have underlying immuno compromising disease as he is diabetic, but reports that his sugars have been well controlled. 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 I wrote him for Valtrex as well as gabapentin for herpetic neuralgia. He will follow symptoms and follow up if they persist or worsen, and will discuss vaccination after symptoms have resolved with his PCP. He knows to go to the emergency department with worrisome symptoms Medications: New valacyclovir (Valtrex) 1,000 mg PO TID 30 tabs 0RF gabapentin can cause drowsiness. Do not work or drive while taking 100 mg PO TID PRN 40 caps 0RF nerve pain Discontinued semaglutide Discontinued Reason: Duplicate 0.6667 mg (0.25 mL) subcut QWEEK 3 mL 4RF Coding Level of Care Code Est Pt Level 4 (00212) Diagnoses Herpes zoster without complication B02.9 Herpes zoster complications: without complications
== END 2024-09-05 15:15 | disposition home or self-care (01) ==
PROVIDERS: PCP Nurse Practitioner Family; Visit Provider Physician Assistant Medical
DX: B02.9 Zoster without complications (principal)

== ENCOUNTER 2024-10-13 07:57 | Outpatient (AMB) | payer OTHER, SELFPAY ==
--- NOTE | 2024-10-13 07:30 | A.OFFVIS_ITS ---
Vital Signs 10/13/24 07:32 Height 5 ft 7 in Weight 225 lb BMI 35.2 BP 120/80 Blood Pressure Location Rt brachial Position Sitting Pulse 74 Pulse Source Pulse Oximeter Intake Visit Reasons: T2DM Intake Note: Patient presents today for a follow-up on Type 2 Diabetes Mellitus: Last Diabetic eye exam was on: DUE Last Podiatry exam was on: Does not see a Funeral Attendant Most recent HbA1c: 8.0%, 08/18/2024 Random Glucose- 140 mg/dL, Today E Commerce Merchandising Coordinator Required: No Accompanied by: Self / Same As Patient Allergies iopamidol [From Isovue-370] Allergy (Mild, Verified 09/05/24 14:28) HIVES ON HEAD AND UPPER ARMS. Contrast Dye Allergy (Unknown, Uncoded 09/05/24 14:28) hives contrast dye Allergy (Unknown, Uncoded 09/05/24 14:28) hives Medication List - Last Reconciled 10/13/24 by Raiza Dejesus NP atorvastatin 80 mg PO BEDTIME blood sugar diagnostic (FreeStyle Lite Strips) TEST 4 TIMES A DAY blood-glucose meter (FreeStyle Lite Meter kit) 4 x/day blood-glucose sensor (FreeStyle Juan Jose 3 Plus Sensor device) As directed flash glucose sensor (FreeStyle Juan Jose 2 Sensor kit) As directed gabapentin 100 mg PO TID PRN insulin glargine (Lantus Solostar U-100 Insulin) 80 units (0.8 mL) subcut DAILY 90 days insulin lispro (Humalog KwikPen (U-100) Insulin) 18 units for breakfast and lunch, 28 units for supper , plus up to 6 units additional units at meals for elevated blood sugars as directed subcutaneously 3 times a day; 90 days lancets As directed 4 times a day pen needle, diabetic (Comfort EZ Pen Sudan) As directed injects 4 times a day semaglutide (Ozempic) 2 mg (0.75 mL) subcut QWEEK 28 days tirzepatide (Mounjaro) 2.5 mg (0.5 mL) subcut QWEEK 84 days valacyclovir (Valtrex) 1,000 mg PO TID HPI Comments Details: 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 He is currently on basal bolus insulin plus GLP 1 agonist. Last hgb a1c was 8.0% 08/18/24 despite an increase in Lantus to 80 units Previous A1c 01/25/2024 was 7.4% Past medical history: HTn, DM2, HLD, hypertriglyceridemia and fatty liver Micro and macrovascular complications: none known Diabetes medications: Metformin 500 2 pills BId not taking GI upset even with XR Lantus 80 units Humalog 18-20units breakfast and lunch 24 for supper correction for blood sugars over 200 +2 units, over 250+ 4 units and over 300+ 6 units Ozempic 2 mg Qwkly He was on mounjaro in the past and found it worked better for him in controlling his glucose. He was able to get this through his insurance but is co-pay increase dramatically. He would like to try this again. Took Jardiance in the past but had symptoms upset stomach freestyle average glucose: 169 14 day continuous glucose monitor report reviewed Glucose Managment indicator 7.4 % Days with CGM data [ ] % TIme in ranges: Six % very high (above 250) 29 % high ?(181-250) 65 % in range ?(70-180] 0 % low (69-55) 0 % ?very low (below 54) Interpretation: Blood sugars I with higher postprandial elevations after supper I Interpretation of CGMS ] denies numbness, tingling, cramping in lower extremities Hypoglycemia: denies Hyperglycemia: denies polyuria No neuropathy: denies numbness, tingling, cramping in lower extremities No retinopathy: Last eye exam was 08/29 he has scheduled for next month No Nephropathy: 05/21/23 microalbumin 15.0 05/17/24 eGFR>60 HLD on statin most recent 05/2024 LDL 109 Exercise: goes to camp and does outdoor projects. [facility] Medical History Long-term insulin use in type 2 diabetes Hepatic steatosis Hypertriglyceridemia Hematuria Hyperlipidemia LDL goal <100 Obesity due to excess calories Diabetes type 2, uncontrolled Surgical History Hx of wisdom tooth extraction Hx of appendectomy Family History Father DM2 (diabetes mellitus, type 2) Myocardial infarction Deep vein thrombosis Peripheral vascular disease History of left below knee amputation History of above-knee amputation Mother Hypertension Hyperlipidemia Fibromyalgia Diabetes Social History Household Members: Family Household Members Other:: brother Housing: House Alcohol intake: current Patient Tobacco Use Status: Never used Tobacco e-Cigarette/Vaping Use: Never Used Second Hand Smoke Exposure: No service: Yes Current occupational status: employed Current occupation: [employer] Current occupational exposures/hazards: No Cognitive needs: No Hearing needs: No Vision needs: No Physical Exam Vital Signs: Last Vital Signs Pulse 74 10/13/24 07:32 BP 120/80 10/13/24 07:32 BMI result Body Mass Index 35.2 Const Other: Absence of Cushingoid features. Absence of acromegalic features Lungs CTA. Heart S1 S2, Reg R/R. No M/R G. Skin exam reveals absence of vitiligo or acanthosis nigricans. No edema Visual exam of foot performed. No ulcerations or open lesions. No inter digit maceration or fissuring. No onychomycosis, no callouses. Sensation intact to monofilament exam. Vibratory sensation is normal with 128 Hz tuning fork. Results Reviewed Results Reviewed: Laboratory Last Values Glucose (Clinic) 140 mg/dL (60-115) H 10/13/24 08:12 Assessment & Plan Assessment & Plan (1) Diabetes type 2, uncontrolled: Comment: This is a 44-year-old white male with a history of type 2 diabetes being treated with Ozempic and basal-bolus insulin with an A1c of 7.4% glycemic control and no known microvascular or macrovascular complication. Code(s): E11.65 - Type 2 diabetes mellitus with hyperglycemia Category: Medical Qualifiers: Glycemic state: with hyperglycemia Qualified Code(s): E11.65 - Type 2 diabetes mellitus with hyperglycemia Plan: Type 2 diabetic with no known micro or macrovascular complications with improvin g A1c is 7.4% at last check. He is due in 10 days for another A1C He will increase his NovoLog to 24-28 units with the supper meal and I attempted had a 15 minute walk in the evening. A new prescription was sent for Mounjaro 2.5 mg as he reports he had better control and better appetite suppression with this. He was advised that since he is currently on Ozempic 2.0 mg weekly at the maximum dose that his numbers may temporarily increase in that he should adjust his short-acting insulin according to a scale. He will call in 3 weeks to let me know if he is tolerating the Mounjaro and then we will increase monthly as needed. He was asked to contact our office if he has any difficulty with obtaining the medication. He will have fasting blood work and urine for microalbumin done in the next week. Orders: Orders Basic Metabolic Panel Today E11.65 - Type 2 diabetes mellitus with hyperglycemia Microalbumin, Random (w Creat) Today E11.65 - Type 2 diabetes mellitus with hyperglycemia Hemoglobin A1c Today E11.65 - Type 2 diabetes mellitus with hyperglycemia Creatinine Urine Today E11.65 - Type 2 diabetes mellitus with hyperglycemia Medications: New tirzepatide (Mounjaro) for 4 weeks 2.5 mg (0.5 mL) subcut QWEEK 84 days 6 mL 3RF Changed From insulin lispro (Humalog KwikPen (U-100) Insulin) 16 units for meals, 2 units for snacks, plus up to 6 units additional units at meals for elevated blood sugars as directed subcut 3 times a day; 90 days 90 mL 8RF E11.65 - Type 2 diabetes mellitus with hyperglycemia To insulin lispro (Humalog KwikPen (U-100) Insulin) 18 units for breakfast and lunch, 28 units for supper , plus up to 6 units additional units at meals for elevated blood sugars as directed subcutaneously 3 times a day; 90 days 27 mL 8RF E11.65 - Type 2 diabetes mellitus with hyperglycemia From insulin glargine (Lantus Solostar U-100 Insulin) 80 units (0.8 mL) subcut DAILY 30 days 24 mL 3RF To insulin glargine (Lantus Solostar U-100 Insulin) 80 units (0.8 mL) subcut DAILY 90 days 72 mL 3RF Refilled semaglutide (Ozempic) 2 mg (0.75 mL) subcut QWEEK 28 days 3 mL 10RF Patient Instructions: The patient was counseled to achieve a target A1C of 7% (154 avg). Fasting blood sugars should be 90-130 in the morning and less than 180 two hours after meals. Reviewed the relationship between poor diabetic control and the development of complications. Check your feet daily looking for any signs of infection, ulceration and seek medical attention if this occurs. Break in shoes gradually and do not wear open-toed shoes or walk barefooted. Coding Level of Care Code Est Pt Level 4 (49099) Diagnoses Uncontrolled type 2 diabetes mellitus with hyperglycemia E11.65 Glycemic state: with hyperglycemia Time Spent (min) 40 Comment Time spent reviewing labs/provider notes, glucose,sensor reports, face to face, chart doc
[2024-10-13 07:32] VITALS: BP 120/80; PULSE 74; BMI 35.2
[2024-10-13 08:20] LABS: Glucose, Whole Blood 140 mg/dL (60-115)
== END 2024-10-13 08:40 | disposition home or self-care (01) ==
PROVIDERS: PCP Nurse Practitioner Family; Visit Provider Nurse Practitioner Adult Health
DX: E11.65 Type 2 diabetes mellitus with hyperglycemia (principal)
CPT/HCPCS: 99214

== ENCOUNTER → 2024-10-13 07:57 | Outpatient (BNVA) | payer OTHER, SELFPAY | PROVIDERS: PCP Nurse Practitioner Family; Visit Provider Nurse Practitioner Adult Health | DX: E11.65 Type 2 diabetes mellitus with hyperglycemia (principal); Z79.4 Long term (current) use of insulin | CPT/HCPCS: 82947 ==

== ENCOUNTER 2024-11-18 09:33 | Outpatient (AMB) | payer OTHER, SELFPAY ==
--- NOTE | 2024-11-18 09:37 | MHC.PC.OV ---
Vital Signs 11/18/24 09:51 Height 5 ft 7 in Weight 230 lb 6 oz BMI 36.1 BP 130/74 Blood Pressure Location Rt brachial Position Sitting Respiration 16 Pulse 71 Pulse Source Pulse Oximeter Temp 97.9 F Temp Source Oral Pulse Oximetry (%) 97 Oxygen Delivery Method Room Air Intake Visit Reasons: 3 mos HTN, HLD Intake Note: patient here for follow up on HTN and HLD Reception Centre Manager Required: No Allergies iopamidol [From Isovue-370] Allergy (Mild, Verified 11/18/24 09:49) HIVES ON HEAD AND UPPER ARMS. Contrast Dye Allergy (Unknown, Uncoded 09/05/24 14:28) hives contrast dye Allergy (Unknown, Uncoded 09/05/24 14:28) hives Tobacco use date assessed: 11/18/24 Dental Screening Dental Screen Date: 11/18/24 Did you have a dental visit in the last 12 months?: Yes Did you have a dental problem in the last 6 months where you did not have access to dental care?: No Was dental information given to patient?: Patient has dentist HPI HPI Comments History of Present Illness Details 44-year-old male presents for diabetes and hyperlipidemia follow-up. He admits to taking his medications prescribed without adverse reactions. He has not started taking Mounjaro because the pharmacy was out of stuck but was notified today that the medication is ready for pickup. He did not get lipid panel blood work as planned for this visit but will do so today. He admits to making healthy dietary choices, including limiting carbs. He is active but does not exercise routinely. He offers no complaints and denies acute symptoms at this time. He is followed by [facility] endocrinology and was last seen in October. He has a follow-up appointment in early January. COUNT INCLUDES THE [facility] Medical History Long-term insulin use in type 2 diabetes Hepatic steatosis Hypertriglyceridemia Hematuria Hyperlipidemia LDL goal <100 Obesity due to excess calories Diabetes type 2, uncontrolled Surgical History Hx of wisdom tooth extraction Hx of appendectomy Family History Father DM2 (diabetes mellitus, type 2) Myocardial infarction Deep vein thrombosis Peripheral vascular disease History of left below knee amputation History of above-knee amputation Mother Hypertension Hyperlipidemia Fibromyalgia Diabetes Social History Household Members: Family Household Members Other:: brother Housing: House Alcohol intake: current Patient Tobacco Use Status: Never used Tobacco e-Cigarette/Vaping Use: Never Used Second Hand Smoke Exposure: No service: Yes Current occupational status: employed Current occupation: [employer] Current occupational exposures/hazards: No Cognitive needs: No Hearing needs: No Vision needs: No Questionnaire PHQ-9 Over the last 2 weeks, how often have you been bothered by any of the following problems? 1. Little interest or pleasure in doing things: not at all 2. Feeling down, depressed, or hopeless: not at all 3. Trouble falling or staying asleep, or sleeping too much: several days 4. Feeling tired or having little energy: several days 5. Poor appetite or overeating: not at all 6. Feeling bad about yourself - or that you are a failure or have let yourself or your family down: not at all 7. Trouble concentrating on things, such as reading the newspaper or watching television: several days 8. Moving or speaking so slowly that other people could have noticed. Or the opposite - being so fidgety or restless that you have been moving around a lot more than usual: not at all 9. Thoughts that you would be better off or of hurting yourself in some way: not at all Total score: 3 Depression Screening Interpretation: Negative Depression Screening Done: Yes Source: Developed by Drs. Karlos Muhammad, Stephanie Abebe, Fredi Simon and colleagues, with an educational odell from [employer]. Thrive Questionnaire Date Thrive assessed: 08/18/24 I am a: Patient What is your living situation today?: I have a steady place to live Within the past 12 months, did the food you bought not last and you didn't have the money to get more?: Never true Within the past 12 months, did you worry whether your food would run out before you got money to buy more?: Never true Do you have trouble paying for medicines?: No Do you have trouble getting transportation to medical appointments?: No Do you have trouble paying your heating and electricity bill?: No Do you have trouble taking care of your child, family member or friend?: No Do you have trouble with day-to-day activities such as bathing, preparing meals, shopping, managing finances, etc.?: No Are you currently unemployed and looking for a job?: No Are you interested in more education?: No Please select the resources that you would like help with: None Currently or been in a relationship where the following occur: No concerns reported THRIVE Score: 0 AUDIT C Alcohol Use Questionnaire (AUDIT-C) 1. How often do you have a drink containing alcohol?: Monthly or less 2. How many drinks containing alcohol do you have on a typical day when you are drinking?: 3 or 4 3. How often do you have six or more drinks on one occasion?: Never Total Score: 2 ROBEL-7 AMB Questionnaire ROBEL-7 Date ROBEL - 7 assessed: 08/18/24 Feeling nervous, anxious, or on edge: 0 = Not at all Not being able to stop or control worryin = Not at all Worrying too much about different things: 0 = Not at all Trouble relaxin = Not at all Being so restless that it is hard to sit still: 0 = Not at all Becoming easily annoyed or irritable: 0 = Not at all Feeling afraid as if something awful might happen: 0 = Not at all Total ROBEL-7 score (0-4 normal; 5-9 mild; 10-14 moderate; 15-21 severe): 0 Source: Developed by Drs. Karlos Muhammad, Stephanie Abebe, Fredi Simon and colleagues, with an educational odell from [employer]. Review of Systems Const Details: Const Denies chills, Denies fatigue, Denies fever(s), Denies headache(s) and Denies weakness ENT Denies dizziness and Denies headache(s) Card Denies chest pain, Denies lightheadedness, Denies dyspnea and Denies other (Palpitations) Resp Denies cough, Denies dyspnea, Denies wheezing and Denies other ( shortness of breath) GI Denies abdominal pain, Denies melena, Denies hematochezia, Denies change in bowel habits, Denies dyspepsia and Denies nausea Denies hematuria and Denies dysuria Musc Denies abnormal gait, Denies myalgias, Denies arthralgias, Denies numbness and Denies tingling Skin/Breast Denies rash, Denies unusual bruising and Denies wounds Neuro Denies abnormal gait, Denies dizziness, Denies headache(s), Denies memory loss, Denies numbness, Denies Sensory deficit (Neuro), Denies tingling and Denies weakness Psych Denies anxiety, Denies depression, Denies memory loss Endo Denies cold intolerance, Denies fatigue, Denies heat intolerance, Denies polydipsia and Denies polyuria Aller/Immun Denies wheezing Physical exam (Primary Care) Tobacco/Smoking Status: Tobacco use Status Tobacco use date assessed 08/18/24 11/18/24 09:38 Patient Tobacco Use Status Never used Tobacco 11/18/24 09:38 e-Cigarette/Vaping Use Never Used 11/18/24 09:38 PHQ-9: PHQ-9 Score PHQ-9: Total score 3 11/18/24 09:38 Depression Screening Interpretation: Negative Thrive Assessment: Date of Thrive Assessment Date Thrive assessed 08/18/24 11/18/24 09:38 Currently or been in a relationship where the following occur: No concerns reported Const Other: General: no acute distress and well developed Nutritional Appearance: well nourished Orientation/consciousness: patient oriented x3 HENMT Head: Yes normocephalic and Yes atraumatic Eyes General: appearance normal, both eyes and all related structures Pupils: Equal, round and reactive pupils present EOM: EOMs intact bilaterally Resp Effort & Inspection: normal respiratory effort Auscultation: clear to auscultation bilaterally Cardio Rate: regular rate Rhythm: regular rhythm Heart sounds: S1 normal heart sound present, S2 normal heart sound present, no gallops, no murmurs and no rubs GI Palpation (GI): No Abdominal aortic bruit present, Soft to palpation, nontender, No hepatosplenomegaly present and No Rebound tenderness present Auscultation: normal bowel sounds General: Yes no CVA tenderness Back/Spine/Pelvis Back: no CVA tenderness Cervical Spine: cervical ROM normal and No Cervical spine tenderness Thoracic/Lumbar Spine: thoraco-lumbar ROM normal, No pain with thoraco-lumbar ROM, No thoracic spinal tenderness and No lumbar spinal tenderness Extrem General: Yes normal to inspection, No edema and No calf tenderness Skin General: warm and dry. Normal skin color. Normal skin turgor Neuro General: patient oriented x3, gait normal and no focal neuro deficit Cranial nerves: Yes Equal, round and reactive pupils present Cognition (Neuro): normal cognition Gait exam (Neuro): Normal gait present Sensory Exam: No Sensory deficit (Neuro) Psych Appearance: grossly normal Affect: normal affect Attitude: cooperative Thought process: Normal thought process present Results AMB Hemoglobin A1c AMB Hemoglobin A1c 7.9 % Last Edit by Rachel Mackenzie on 11/18/24 09:57 Coding Level of Care Code Tele New Pt Level 3 (83259) Diagnoses Uncontrolled type 2 diabetes mellitus with hyperglycemia E11.65 Glycemic state: with hyperglycemia Hyperlipidemia LDL goal <100 E78.5 Assessment & Plan Assessment & Plan (1) Diabetes type 2, uncontrolled: Code(s): E11.65 - Type 2 diabetes mellitus with hyperglycemia Category: Medical Qualifiers: Glycemic state: with hyperglycemia Qualified Code(s): E11.65 - Type 2 diabetes mellitus with hyperglycemia Plan: A1c today is 7.9%, above goal of less than 7.0%. Previous A1c was 8.0%. Continue current treatment regimen. Start taking Mounjaro as prescribed. Followed by [facility] endocrinology. Advised to call is endocrinology as planned for medication adjustments. Continue to follow-up with endocrinology for diabetes management. Follow-up for an extended physical exam on or after 03/20/2025 or sooner with symptoms or concerns. Verbalized understanding and agreed with treatment plan. (2) Hyperlipidemia LDL goal <100: Code(s): E78.5 - Hyperlipidemia, unspecified Category: Medical Plan: He did not get lipid panel blood work done for this visit as planned but will do so today. Continue current treatment regimen. Advised to limit foods high in saturated fat and avoid foods high in trans fat. Routine exercise encouraged. Will review results and make changes as needed. Verbalized understanding and agreed with treatment plan. Orders: Orders AMB Hemoglobin A1c Today Z13.9 - Encounter for screening, unspecified
[2024-11-18 09:51] VITALS: BP 130/74; PULSE 71; RESP 16; TEMP 36.6; O2SAT 97; BMI 36.1
--- OUTSIDE RECORDS SUMMARY | 2024-11-18 10:47 | XMS_ITS | Clinical Summary ---
Author Organization [facility] Address [address] [place] [address] Phone Care Team Providers Care Preassembler And Inspector Name Role Phone MauroEsperanza tracy LAURA Primary Care Provider [phone] Encounters Date Type Department Care Team Description 10/30/2024 1:58 PM EST - 10/30/2024 11:59 PM EST Hospital Encounter [facility] CT Scan [address] [place] [address] Occupational exposure to air contaminants Discharge Disposition: Home or Self Care 10/02/2024 Telephone Lung Screening Program - [place] [address] [facility] [address] [place] [address] Gino Collins MD from Last 3 Months Family History Medical History Relation Name Comments Heart attack Father Hypertension Father Hypertension Mother Relation Name Status Comments Father Alive Mother Alive Social History Tobacco Use Types Packs/Day Years Used Date Smoking Tobacco: Never Alcohol Use Standard Drinks/Week Comments Yes 6.7 (1 standard drink = 0.6 oz p ure alcohol) Sex and Gender Information Value Date Recorded Sex Assigned at Not on file Legal Sex Male 8:22 PM EST Gender Identity Not on file Sexual Orientation Not on file Obstetrics History Plan of Treatment Upcoming Encounters Date Type Department Care Team (Late st Contact Info) Description 12/01/2024 1:30 PM EST Appointment [facility] Ultrasound [address] [place] [phone] 12/01/2024 2:00 PM EST Appointment [facility] Ultrasound [address] [place] [phone] 12/01/2024 2:30 PM EST Appointment [facility] Ultrasound [address] [place] [address] 12/02/2024 1:00 PM EST Appointment [facility] Ultrasound [address] [place] [address] Health Maintenance Due Date Last Done Comments DTaP,Tdap,and Td Vaccines (1 - Tdap) 1998 Hepatitis B Vaccines (1 of 3 - 19+ 3-dose series) 1998 Cholesterol Screening (Lipid Panel) 10/31/2023 Colorectal Cancer Screening: Colonoscopy 10/31/2023 Depression Screening 10/31/2023 HIV Screening 10/31/2023 Hepatitis C Screening 10/31/2023 Social Influencers of Health Screening 10/31/2023 COVID-19 Vaccine (3 - 2023-2 5 season) 2024 11/16/2020, 10/18/2020 Influenza Vaccine (#1) 2024 , 06/18/2017 Pneumococcal Vaccine: Pediatrics (0 to 5 Years) and At-Risk Patients (6 to 64 Years) Aged Out 04/02/2018 No longer eligible b ased on patient's age to complete this topic HIB Vaccines Aged Out No longer eligi ble based on patient's age to complete this topic HPV Vaccines Aged Out No longer eligi ble based on patient's age to complete this topic Hepatitis A Vaccines Aged Out No long er eligible based on patient's age to complete this topic IPV Vaccines Aged Out No longer eligi ble based on patient's age to complete this topic MMR Vaccines Aged Out No longer eligi ble based on patient's age to complete this topic Meningococcal ACWY Vaccine Aged Out N o longer eligible based on patient's age to complete this topic Meningococcal B Vacine Aged Out No lo nger eligible based on patient's age to complete this topic RSV Immunization Patients Under 20 months Aged Out No longer eligible b ased on patient's age to complete this topic Varicella Vaccines Aged Out No longer eligible based on patient's age to complete this topic Procedures Procedure Name Priority Date/Time Associated Diagnosis Comments CT LUNG SCREENING Routine 10/30/2024 2:2 8 PM EST Occupational exposure to air contaminants from Last 3 Months Results * CT Lung Screening (10/30/2024 2:28 PM EST) Anatomical Region Laterality Modality Chest Computed Tomogra phy 11/04/2024 11:1 6 AM EST Impressions 11/04/2024 11:27 AM EST Small area of scarring and associated mild traction bronchiectasis in the medial aspect of the right middle lobe. -------- FINAL REPORT -------- Dictated By: James Medrano Dictated Date: 11/04/2024 11:16 ET Assigned Physician: James Medrano Reviewed and Electronically Signed By: James Medrano Signed Date: 11/04/2024 11:27 ET Workstation ID: [id number] Transcribed By: Self Edit Transcribed Date: 11/04/2024 11:27 ET Narrative 11/04/2024 11:27 AM EST PROCEDURE: Noncontrast chest CT. TECHNIQUE: Low-dose CT of the chest without intravenous contrast administration. ??Coronal and sagittal reformats and MIP reconstructions were created. Dose length product: 162 ??mGy-cm. 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 FINDINGS: Lungs/pleura: The central airways are clear. ??There is a small area of scarring with mild associated traction bronchiectasis in the medial right middle lobe. ??Lungs are clear. ??No pulmonary nodule or mass. ??No pleural effusion or pneumothorax. Mediastinum/saeed: No mediastinal mass or lymphadenopathy. ??No appreciable hilar lymphadenopathy on limited noncontrast evaluation. Vasculature: Normal caliber pulmonary arteries. ??Small focus of atherosclerotic calcification at the origin of the right subclavian artery. Chest wall: No mass or lymphadenopathy. Limited abdomen: Unremarkable. Bones: Mild degenerative changes of the spine. Procedure Note James Medrano MD - 11/04/2024 PROCEDURE: Noncontrast chest CT. TECHNIQUE: Low-dose CT of the chest without intravenous contrastadministration. Coronal and sagittal reformats and MIP reconstructionswere created. Dose length product: 162 mGy-cm. 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 FINDINGS: Lungs/pleura: The central airways are clear. There is a small area ofscarring with mild associated traction bronchiectasis in the medial rightmiddle lobe. Lungs are clear. No pulmonary nodule or mass. No pleuraleffusion or pneumothorax. Mediastinum/saeed: No mediastinal mass or lymphadenopathy. No appreciablehilar lymphadenopathy on limited noncontrast evaluation. Vasculature: Normal caliber pulmonary arteries. Small focus ofatherosclerotic calcification at the origin of the right subclavianartery. Chest wall: No mass or lymphadenopathy. Limited abdomen: Unremarkable. Bones: Mild degenerative changes of the spine. IMPRESSION: Small area of scarring and associated mild traction bronchiectasis in themedial aspect of the right middle lobe. -------- FINAL REPORT -------- Dictated By: James Medrano Dictated Date: 11/04/2024 11:16 ET Assigned Physician: James Medrano Reviewed and Electronically Signed By: James Medrano Signed Date: 11/04/2024 11:27 ET Workstation ID: [id number] Transcribed By: Self Edit Transcribed Date: 11/04/2024 11:27 ET Nini HOROWITZ IMG CT PROCEDURES Final Resul t from Last 3 Months Insurance [facility] [employer] Care Teams Preassembler And Inspector Relationship Specialty Start Date End Date Esperanza Wade FNP [address] [facility] [place] [address] PCP - General Family Medicine 10/05/24
--- OUTSIDE RECORDS SUMMARY | 2024-11-18 10:47 | XMS_ITS | Encounter Summary ---
Author Organization [facility] Address [address] [place] [address] Care Team Providers Care Radio Board Operator Name Role Phone Maruo, Esperanza SANCHEZ Primary Care Provider Reason for Referral * Imaging (Routine) - Closed Specialty Diagnoses / Procedures Referred By Colt t Referred To Contact Radiology Diagnoses Occupational exposure to air contaminants Procedures CT Lung Screening Nini Wu PA [address] [address] Phone: tel: fax: [facility] Referral ID Status Reason Start Date Expiration Date Visits Re quested Visits Authorized [id number] Closed 10/02/2024 10/02/2025 1 1 Reason for Visit * Imaging (Routine) - Closed Specialty Diagnoses / Procedures Referred By Colt miles Referred To Contact Radiology Diagnoses Occupational exposure to air contaminants Procedures CT Lung Screening Nini Wu PA [address] [address] Phone: tel: fax: [facility] Referral ID Status Reason Start Date Expiration Date Visits Re quested Visits Authorized [id number] Closed 10/02/2024 10/02/2025 1 1 Encounter Details Date Type Department Care Team (Latest Contact Info) Description 10/30/2024 1:58 PM EST - 10/30/2024 11:59 PM EST Hospital Encounter [facility] [place] [facility] CT Scan [address] [place] [address] Occupational exposure to air contaminants Discharge Disposition: Home or Self Care Social History Tobacco Use Types Packs/Day Years Used Date Smoking Tobacco: Never Alcohol Use Standard Drinks/Week Comments Yes 6.7 (1 standard drink = 0.6 oz p ure alcohol) Sex and Gender Information Value Date Recorded Sex Assigned at Not on file Legal Sex Male 8:22 PM EST Gender Identity Not on file Sexual Orientation Not on file documented as of this encounter Discharge Disposition Disposition Code Departure Means Destination Home or Self Care documented in this encounter Plan of Treatment Upcoming Encounters Date Type Department Care Team (Late st Contact Info) Description 12/01/2024 1:30 PM EST Appointment [facility] [place] [facility] Ultrasound [address] [place] [address] 12/01/2024 2:00 PM EST Appointment [facility] [place] [facility] Ultrasound [address] [place] [address] 12/01/2024 2:30 PM EST Appointment [facility] [place] [facility] Ultrasound [address] [place] [address] 12/02/2024 1:00 PM EST Appointment [facility] [place] [facility] Ultrasound [address] [place] [address] documented as of this encounter Procedures Procedure Name Priority Date/Time Associated Diagnosis Comments CT LUNG SCREENING Routine 10/30/2024 2:2 8 PM EST Occupational exposure to air contaminants documented in this encounter Results * CT Lung Screening (10/30/2024 2:28 [...] Signed Date: 11/04/2024 11:27 ET Workstation ID: [id number] Transcribed By: Self Edit Transcribed Date: 11/04/2024 [...] Signed Date: 11/04/2024 11:27 ET Workstation ID: [id number] Transcribed By: Self Edit Transcribed Date: 11/04/2024 11:27 ET us Nini HOROWITZ IMG CT PROCEDURES Final Resul t documented in this encounter Visit Diagnoses Diagnosis Occupational exposure to air contaminants documented in this encounter Care Teams Radio Board Operator Relationship Specialty Start Date End Date Esperanza Wade FNP [address] [place] [address] PCP - General Family Medicine 10/05/24 documented as of this encounter
--- OUTSIDE RECORDS SUMMARY | 2024-11-18 10:47 | XMS_ITS | Encounter Summary ---
Author Organization [facility] Address [address] [place] [address] Care Team Providers Care Stripper Latex Name Role Phone Mauro, Elainebabatunde LAURA Primary Care Provider [phone] Reason for Referral * Imaging (Routine) - Pending Review Specialty Diagnoses / Procedures Referred By Contac t Referred To Contact Radiology Diagnoses Occupational exposure to air contaminants Procedures US Scrotum and Contents Tesfaye Wu PA [address] [facility], [address] [address] Phone: tel: fax: [facility] Referral ID Status Reason Start Date Expiration Date V isits Requested Visits Authorized [id number] Pending Review 11/11/2024 11/11/2025 1 1 * Imaging (Routine) - Pending Review Specialty Diagnoses / Procedures Referred By Contac t Referred To Contact Radiology Diagnoses Occupational exposure to air contaminants Procedures US Retroperitoneal Complete Tesfaye Wu PA [address] [facility], [address] [place] [address] Phone: tel: fax: [facility] Referral ID Status Reason Start Date Expiration Date V isits Requested Visits Authorized [id number] Pending Review 11/11/2024 11/11/2025 1 1 * Imaging (Routine) - Pending Review Specialty Diagnoses / Procedures Referred By Contac t Referred To Contact Radiology Diagnoses Occupational exposure to air contaminants Procedures US Head Neck Soft Tissue Tesfaye Wu PA [address], [address] [place] [address] Phone: tel: fax: [facility] Referral ID Status Reason Start Date Expiration Date V isits Requested Visits Authorized [id number] Pending Review 11/11/2024 11/11/2025 1 1 * Imaging (Routine) - Pending Review Specialty Diagnoses / Procedures Referred By Contac t Referred To Contact Radiology Diagnoses Occupational exposure to air contaminants Procedures US Abdomen Complete Tesfaye Wu PA [address], [address] [place] [address] Phone: tel: fax: [facility] Referral ID Status Reason Start Date Expiration Date V isits Requested Visits Authorized [id number] Pending Review 11/11/2024 11/11/2025 1 1 * Imaging (Routine) - Closed Specialty Diagnoses / Procedures Referred By Contac t Referred To Contact Radiology Diagnoses Occupational exposure to air contaminants Procedures CT Lung Screening Tesfaye Wu PA [address], [address] [place] [address] Phone: tel: fax: [facility] Referral ID Status Reason Start Date Expiration Date Visits Re quested Visits Authorized [id number] Closed 10/02/2024 10/02/2025 1 1 Encounter Details Date Type Department Care Team (Late st Contact Info) Description 10/02/2024 Telephone Lung Screening Program - [place] [address] [facility] [address] [place] [address] Gino Collins MD [address] [place] [address] Social History Tobacco Use Types Packs/Day Years Used Date Smoking Tobacco: Never Alcohol Use Standard Drinks/Week Comments Yes 6.7 (1 standard drink = 0.6 oz p ure alcohol) Sex and Gender Information Value Date Recorded Sex Assigned at Not on file Legal Sex Male 8:22 PM EST Gender Identity Not on file Sexual Orientation Not on file documented as of this encounter Progress Notes * Lisy Hyde MA - 11/12/2024 9:43 AM EST Patient made aware of all appointments also set up with my chart to view appointments. * CARLOS MANUEL Harvey - 11/11/2024 2:11 PM ESTAddended by: TESFAYE WU on: 11/11/2024 02:11 PM Modules accepted: Orders * CARLOS MANUEL Harvey - 11/11/2024 2:10 PM EST Ordered. * Lisy Hyde MA - 11/10/2024 4:54 PM EST Now approved for bundle. Can you please enter orders. * CARLOS MANUEL Harvey - 10/02/2024 5:08 PM EST Ordered. 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 Weight: 225 lbs Preferred Language: Yi Steam Bone Press Tender, if needed: has no Ethnicity (choose one): Not Race (choose one): White PCP Name: Nate Bright PCP Phone #: PCP Address: Dr. 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 has no If yes, what kind(s): Family history of cancer? has no if yes, who, and what kind(s): Mother: Father: Brother: Sister: Aunt: Uncle: Grandmother: Grandfather: Other: Known exposure to radon? has no Known exposure to asbestos? has Tobacco History: Current Smoker? has no If yes, start date: Average PPD: Former Smoker? If yes, start date and quit date: through Average PPD: Non-smoker, never smoker? has Smokeless tobacco use? has no If yes, what type? Vape use? has no documented in this encounter Plan of Treatment Upcoming Encounters Date Type Department Care Team (Late st Contact Info) Description 12/01/2024 1:30 PM EST Appointment [facility] Ultrasound [address] [place] [address] 12/01/2024 2:00 PM EST Appointment [facility] Ultrasound [address] [place] [address] 12/01/2024 2:30 PM EST Appointment [facility] Ultrasound [address] [place] [address] 12/02/2024 1:00 PM EST Appointment [facility] Ultrasound [address] [place] [address] Scheduled Orders Name Type Priority Associated Diagnoses Orde r Schedule Prostate specific antigen Lab Routine Occupational exposure to air contaminants 1 Occurrences starting 10/02/2024 until 10/02/2025 US Abdomen Complete Imaging Routine Occupational exposure to air contaminants Expected: 11/11/2024, Expires: 11/11/2025 US Head Neck Soft Tissue Imaging Routine Occupational exposure to air contaminants Expected: 11/11/2024, Expires: 11/11/2025 US Retroperitoneal Complete Imaging Routine Occupational exposure to air contaminants Expected: 11/11/2024, Expires: 11/11/2025 US Scrotum and Contents Imaging Routine Occupational exposure to air contaminants Expected: 11/11/2024, Expires: 11/11/2025 documented as of this encounter Results * CT Lung Screening [...] Signed Date: 11/04/2024 11:27 ET Workstation ID: [id number] Transcribed By: Self Edit Transcribed Date: 11/04/2024 [...] Signed Date: 11/04/2024 11:27 ET Workstation ID: [id number] Transcribed By: Self Edit Transcribed Date: 11/04/2024 11:27 ET Tesfaye HOROWITZ [facility] CT PROCEDURES Final Resul t documented in this encounter Visit Diagnoses Diagnosis Occupational exposure to air contaminants- Primary Occupational exposure to air contaminants documented in this encounter Care Teams Stripper Latex Relationship Specialty Start Date End Date Esperanza Wade FNP [address] [place] [address] PCP - General Family Medicine 10/05/24 documented as of this encounter
== END 2024-11-18 10:15 | disposition home or self-care (01) ==
PROVIDERS: PCP Nurse Practitioner Family; Visit Provider Nurse Practitioner Family
DX: E11.65 Type 2 diabetes mellitus with hyperglycemia (principal); E78.5 Hyperlipidemia, unspecified

== ENCOUNTER 2024-11-18 10:22 | Outpatient (REF) | payer OTHER, SELFPAY ==
--- OUTSIDE RECORDS SUMMARY | 2024-11-18 12:08 | XMS_ITS | Encounter Summary ---
Author Organization [facility] Address [address] [place] [address] Care Team Providers Care Marketing Associate Name Role Phone Mauro, Esperanza SANCHEZ Primary Care Provider [phone] Reason for Referral * Imaging (Routine) - Closed Specialty Diagnoses / Procedures Referred By Colt t Referred To Contact Radiology Diagnoses Occupational exposure to air contaminants Procedures CT Lung Screening Nini Wu PA [address] [address] Phone: tel: fax: [facility] Referral ID Status Reason Start Date Expiration Date Visits Re quested Visits Authorized [id number] Closed 10/02/2024 10/02/2025 1 1 Reason for Visit * Imaging (Routine) - Closed Specialty Diagnoses / Procedures Referred By Colt miles Referred To Contact Radiology Diagnoses Occupational exposure to air contaminants Procedures CT Lung Screening Nini Wu PA [address] [address] Phone: tel: fax: [facility] Referral ID Status Reason Start Date Expiration Date Visits Re quested Visits Authorized [id number] Closed 10/02/2024 10/02/2025 1 1 Encounter Details Date Type Department Care Team (Latest Contact Info) Description 10/30/2024 1:58 PM EST - 10/30/2024 11:59 PM EST Hospital Encounter [facility] CT Scan [address] [place] [address] Occupational exposure to air contaminants Discharge Disposition: [...] Info) Description 12/01/2024 1:30 PM EST Appointment [facility] Ultrasound [address] [place] [address] 12/01/2024 2:00 PM EST Appointment [facility] Ultrasound [address] [place] [address] 12/01/2024 2:30 PM EST Appointment [facility] Ultrasound [address] [place] [address] 12/02/2024 1:00 PM EST Appointment [facility] Ultrasound [address] [place] [address] documented as of this encounter Procedures Procedure [...] Signed Date: 11/04/2024 11:27 ET Workstation ID: [id number] Transcribed By: Self Edit Transcribed Date: 11/04/2024 [...] Signed Date: 11/04/2024 11:27 ET Workstation ID: [id number] Transcribed By: Self Edit Transcribed Date: 11/04/2024 11:27 ET us Nini HOROWITZ IMG CT PROCEDURES Final Resul t documented in this encounter Visit Diagnoses Diagnosis Occupational exposure to air contaminants documented in this encounter Care Teams Marketing Associate Relationship Specialty Start Date End Date Esperanza Wade FNP [address] [place] [address] PCP - General Family Medicine 10/05/24 documented as of this encounter
--- OUTSIDE RECORDS SUMMARY | 2024-11-18 12:08 | XMS_ITS | Clinical Summary ---
Author Organization [facility] Address [address] [place] [address] Phone Care Team Providers Care Research Center Partner Name Role Phone MauroEsperanza tracy LAURA Primary Care Provider [phone] Encounters Date Type Department Care Team Description 10/30/2024 1:58 PM EST - 10/30/2024 11:59 PM EST Hospital Encounter [facility] CT Scan [address] [place] [address] Occupational exposure to air contaminants Discharge Disposition: Home or Self Care 10/02/2024 Telephone Lung Screening Program - [place] [address] [facility] [address] [place] [address] Gino Collins MD from Last 3 Months [...] Info) Description 12/01/2024 1:30 PM EST Appointment [facility] Ultrasound [address] [place] [address] 12/01/2024 2:00 PM EST Appointment [facility] Ultrasound [address] [place] [address] 12/01/2024 2:30 PM EST Appointment [facility] Ultrasound [address] [place] [address] 12/02/2024 1:00 PM EST Appointment [facility] Ultrasound [address] [place] [address] Health Maintenance Due Date Last Done Comments [...] Signed Date: 11/04/2024 11:27 ET Workstation ID: [id number] Transcribed By: Self Edit Transcribed Date: 11/04/2024 [...] Signed Date: 11/04/2024 11:27 ET Workstation ID: [id number] Transcribed By: Self Edit Transcribed Date: 11/04/2024 11:27 ET Nini HOROWITZ IMG CT PROCEDURES Final Resul t from Last 3 Months Insurance [facility] [employer] Care Teams Research Center Partner Relationship Specialty Start Date End Date Esperanza Wade FNP [address] [facility] [place] [address] PCP - General Family Medicine 10/05/24
--- OUTSIDE RECORDS SUMMARY | 2024-11-18 12:08 | XMS_ITS | Encounter Summary ---
Author Organization [facility] Address [address] [place] [address] Care Team Providers Care Yard Driver Name Role Phone Mauro, Elainebabatunde LAURA Primary Care Provider [phone] Reason for Referral * Imaging (Routine) - Pending Review Specialty Diagnoses / Procedures Referred By Contac t Referred To Contact Radiology Diagnoses Occupational exposure to air contaminants Procedures US Scrotum and Contents Tesfaye Wu PA [address] [facility], [address] [address] Phone: tel: fax: [facility] Referral ID Status Reason Start Date Expiration Date V isits Requested Visits Authorized [id number] Pending Review 11/11/2024 11/11/2025 1 1 * Imaging (Routine) - Pending Review Specialty Diagnoses / Procedures Referred By Contac t Referred To Contact Radiology Diagnoses Occupational exposure to air contaminants Procedures US Retroperitoneal Complete Tesfaye Wu PA [address] [facility], [address] [place] [id number] Phone: tel: fax: [facility] Referral ID Status Reason Start Date Expiration Date V isits Requested Visits Authorized [id number] Pending Review 11/11/2024 11/11/2025 1 1 * Imaging (Routine) - Pending Review Specialty Diagnoses / Procedures Referred By Contac t Referred To Contact Radiology Diagnoses Occupational exposure to air contaminants Procedures US Head Neck Soft Tissue Tesfaye Wu PA [address], [address] [place] [address] Phone: tel: fax: [facility] Referral ID Status Reason Start Date Expiration Date V isits Requested Visits Authorized [id number] Pending Review 11/11/2024 11/11/2025 1 1 * Imaging (Routine) - Pending Review Specialty Diagnoses / Procedures Referred By Contac t Referred To Contact Radiology Diagnoses Occupational exposure to air contaminants Procedures US Abdomen Complete Tesfaye Wu PA [address], [address] [place] [address] Phone: tel: fax: [facility] Referral ID Status Reason Start Date Expiration Date V isits Requested Visits Authorized [id number] Pending Review 11/11/2024 11/11/2025 1 1 * Imaging (Routine) - Closed Specialty Diagnoses / Procedures Referred By Contac t Referred To Contact Radiology Diagnoses Occupational exposure to air contaminants Procedures CT Lung Screening Tesfaye Wu PA [address], [address] [place] [address] Phone: tel: fax: [facility] Referral ID Status Reason Start Date Expiration Date Visits Re quested Visits Authorized [id number] Closed 10/02/2024 10/02/2025 1 1 Encounter Details Date Type Department Care Team (Late st Contact Info) Description 10/02/2024 Telephone Lung Screening Program - [place] [address] [facility] [address] [place] [phone] Gino Collins MD [address] [place] [phone] Social History Tobacco Use Types Packs/Day Years [...] Jodi Mcmahan - 10/02/2024 1:52 PM EST Binding Printer Program General Intake Questionnaire Date of Call: 10/02/2024 Name: Erickson Clemons: : 1980 Gender: Male Address: [address] [place] [address] Preferred Contact #: [phone] E-Mail: Emergency Contact: Miriam Relation: Mother Phone #: [phone] 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 Weight: 225 lbs Preferred Language: Icelandic Engine Builder, if needed: has no Ethnicity (choose one): Not Race (choose one): White PCP Name: Nate Bright PCP Phone #: PCP Address: Dr. 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 Zip code where most of their career was spent: [address] [address] Student ID (use as voucher #): [id number] Screenings to be scheduled: Low dose chest [...] Info) Description 12/01/2024 1:30 PM EST Appointment [facility] [address] [place] [address] 12/01/2024 2:00 PM EST Appointment [facility] [address] [place] [address] 12/01/2024 2:30 PM EST Appointment [facility] [address] [place] [address] 12/02/2024 1:00 PM EST Appointment [facility] Ul[facility] [address] [place] [address] Scheduled Orders Name Type Priority Associated Diagnoses [...] Signed Date: 11/04/2024 11:27 ET Workstation ID: [id number] Transcribed By: Self Edit Transcribed Date: 11/04/2024 [...] Signed Date: 11/04/2024 11:27 ET Workstation ID: [id number] Transcribed By: Self Edit Transcribed Date: 11/04/2024 11:27 ET Tesfaye HOROWITZ [facility] CT PROCEDURES Final Resul t documented in this encounter Visit Diagnoses Diagnosis Occupational exposure to air contaminants- Primary Occupational exposure to air contaminants documented in this encounter Care Teams Yard Driver Relationship Specialty Start Date End Date Esperanza Wade FNP [address] [place] [phone] PCP - General Family Medicine 10/05/24 documented as of this encounter
[2024-11-18 14:54] LABS: Cholesterol 210 mg/dL (<200); HDL Cholesterol 32 mg/dL (>40); LDL Cholesterol Calculated 105 mg/dL (<100); Triglycerides 368 mg/dL (<150)
== END 2024-11-18 10:23 | disposition home or self-care (01) ==
LOC: HO.WFDLDS 10:22
PROVIDERS: Visit Provider Nurse Practitioner Family
DX: E11.65 Type 2 diabetes mellitus with hyperglycemia (principal); E78.5 Hyperlipidemia, unspecified
CPT/HCPCS: 36415; 80061; 83036

== ENCOUNTER 2025-01-09 03:37 | Emergency (ER) | payer OTHER, SELFPAY ==
--- NOTE | ~2025-01-09 | CT_ITS ---
CLINICAL HISTORY: R flank pain, hematuria CT abdomen and pelvis without contrast Comparison: None Findings: No consolidation or effusion. The appearance of the liver suggests fatty infiltration without focal lesion. The gallbladder and solid organs are otherwise within normal limits. There is minimal right hydroureteronephrosis secondary to a 2 mm ureterovesicular junction calculus. No bowel obstruction, pneumoperitoneum, or pneumatosis. Pelvic contents unremarkable. Normal appendix. No acute fracture. IMPRESSION: 1. Minimal right hydroureteronephrosis secondary to a 2 mm ureterovesicular junction calculus. 2. Hepatic steatosis This document has been electronically signed by: Glenn Uribe MD on 01/09/2025 06:08:55
[2025-01-09 04:11] VITALS: BP 165/99; PULSE 86; RESP 18; TEMP 36.7; O2SAT 97; BMI 36.0
[2025-01-09 04:34] LABS: Basophils Percent Auto 0.3 % (0-2); Eosinophils Absolute Auto 0.3 X10*3/uL (0.0-0.4); Eosinophils Percent Auto 3.5 % (0-4); Hematocrit 42.5 % (42.0-52.0); Hemoglobin 14.9 g/dl (14.0-18.0); Imm Gran Abs Auto 0.02 X10*3/uL (0.00-0.03); Imm Gran Pct Auto 0.2 % (0.0-0.4); Lymphocytes Absolute Auto 2.7 X10*3/uL (1.2-4.9); Lymphocytes Percent Auto 29.3 % (20-40); MANUAL DIFF FLAG NO; Mean Corpuscular HGB Conc 35.1 g/dl (31.0-36.0); Mean Corpuscular Hemoglobin 29.6 pg (27.0-33.0); Mean Corpuscular Volume 84.3 fL (80.0-98.0); Mean Platelet Volume 9.1 fL (9.4-12.4); Monocytes Absolute Auto 0.6 X10*3/uL (0.1-1.2); Monocytes Percent Auto 6.1 % (2-11); Neutrophils Absolute Auto 5.5 x10*3/uL (2.0-8.3); Neutrophils Percent Auto 60.6 % (45-73); Platelet Count 225 X10*3/uL (160-400); Red Blood Count 5.04 X10*6/uL (4.60-5.80); Red Cell Distribution Width 12.6 % (11.0-16.0); White Blood Count 9.1 X10*3/uL (4.8-10.8)
[2025-01-09 04:43] LABS: Appearance Urine Turbid; Color Urine BROWN; Glucose Urine UA Negative (Negative); Leukocyte Esterase Urine Negative (Negative); Nitrite Urine Positive (Negative); PH 5.5 (5.0-9.0); Specific Gravity - Urine >= 1.030 (1.005-1.025); UMIC TRIGGER UACC YES; Urine Blood Large (3+) (Negative); Urine Ketones Negative (Negative); Urine Protein 300 (3+) mg/dL (Neg-Trace)
[2025-01-09 04:45] LABS: Bacteria Urine Trace (None Seen); Hyaline Casts Urine 0-2 /LPF (0-2); RBC Urine >20 /HPF (0-2); Squamous Epithelial Cell Urine 0-2 /HPF (0-2); UACC Culture Trigger YES; WBC Urine 0-5 /HPF (0-5)
[2025-01-09 04:46] LABS: Calcium Oxalate Crystals Urine Present
--- NOTE | 2025-01-09 04:58 | ED_ITS ---
HPI - Male Genitourinary General Chief complaint: Urogenital-Male Stated complaint: uro gen male Time Seen by Provider: 01/09/25 04:41 Source: patient Mode of arrival: ambulatory Limitations: no limitations History of Present Illness ED Provider: Dr. Deidre Arriaga HPI Narrative: Patient comes to the emergency room complaining of right-sided flank pain that started approximately 2 hours ago. Patient states that when he urinated, it looked like there was blood in the urine and it also burnt. Patient states that a proximally 8 months ago, he had an episode of hematuria and flank pain, patient states that he believes he passed a kidney stone. Patient has never been formally diagnosed with ureterolithiasis. Patient states that the pain is constant, radiates towards the middle of the back and sometimes the right lower quadrant pain. However, at times the pain becomes very sharp unbearable. Patient complaining of nausea no vomiting. Patient has history of appendectomy. Related Data Home Medications ?Medication ?Instructions ?Recorded ?Confirmed lancets 28 gauge #100 ea 12/12/22 10/13/24 Previous Rx's ?Medication ?Instructions ?Recorded blood-glucose meter (FreeStyle #1 ea 03/23/21 Lite Meter kit) blood sugar diagnostic (FreeStyle #100 strips 08/26/23 Lite Strips) atorvastatin 80 mg tablet 80 mg PO BEDTIME #30 tabs 09/25/23 flash glucose sensor (FreeStyle #3 ea 07/07/24 Juan Jose 2 Sensor kit) blood-glucose sensor (FreeStyle #2 ea 08/11/24 Juan Jose 3 Plus Sensor device) gabapentin 100 mg capsule 100 mg PO TID PRN nerve pain #40 09/05/24 caps insulin lispro 100 unit/mL See Rx Instructions subcut TID 90 10/13/24 subcutaneous pen (Humalog KwikPen days #27 mL (U-100) Insulin) semaglutide 2 mg/dose (8 mg/3 mL) 2 mg (0.75 mL) subcut QWEEK 28 10/13/24 subcutaneous pen injector (Ozempic) days #3 mL tirzepatide 2.5 mg/0.5 mL 2.5 mg (0.5 mL) subcut QWEEK 84 10/13/24 subcutaneous pen injector days #6 mL (Mounjaro) insulin glargine 100 unit/mL (3 80 unit (0.8 mL) subcut DAILY 90 11/20/24 mL) subcutaneous pen ( #72 mL Solostar U-100 Insulin) fenofibrate nanocrystallized 145 145 mg PO DAILY 30 days #30 tabs 12/01/ mg tablet pen needle, diabetic 31 gauge x #400 ea 12/08/24 5/16 (Comfort EZ Pen Madison) ketorolac 10 mg tablet 10 mg PO TID PRN pain 5 days #15 01/09/25 tabs levofloxacin 500 mg tablet 500 mg PO DAILY #7 tabs 01/09/25 ondansetron HCl 4 mg tablet 4 mg PO Q6H PRN nausea and 01/09/25 vomiting #10 tabs tamsulosin 0.4 mg capsule 0.4 mg PO BEDTIME #7 caps 01/09/25 Allergies Allergy/AdvReac Type Severity Reaction Status Date / Time iopamidol [From Isovue-370] Allergy Mild HIVES ON Verified 01/09/25 04:12 HEAD AND UPPER ARMS. Contrast Dye Allergy Unknown hives Uncoded 01/09/25 04:12 contrast dye Allergy Unknown hives Uncoded 01/09/25 04:12 Review of Systems 2 Review of Systems: Constitutional : No Weight loss, No Fever, No Chills, No Night Sweats, No Fatigue, No Malaise ENT/Mouth : No Hearing loss, No Ear Pain, No Nasal Congestion, No Sinus Pain, No Hoarseness, No sore throat, No Rhinorrhea, No Swallowing Difficulty Eyes: No Eye Pain, No Swelling, No Redness, No Foreign Body, No Discharge, No Vision Changes Cardiovascular : No Chest Pain, No SOB, No Dyspnea on Exertion, No Orthopnea, No Edema, No Palpitations Respiratory : No Cough, No Sputum, No Wheezing, No Smoke Exposure, No Dyspnea Gastrointestinal : No Nausea, No Vomiting, No Diarrhea, No Constipation, No abdominal Pain, No Hematochezia, No Melena Genitourinary : Complaining of 1 episode of Dysuria, No Urinary Frequency, complaining of Hematuria, No Urinary Incontinence, No Urgency, complaining of right-sided Flank Pain, No Urinary Flow Changes, No Hesitancy Musculoskeletal : No joint pain, No Myalgias, No Joint Swelling Skin : No Skin Lesions, No rash Neuro : No Weakness, No Numbness, No Paresthesias, No Loss of Consciousness, No Dizziness, No Headache Psych : No Anxiety/Panic, No Depression, No SI/HI/AH/VH, No Social Issues, Heme/Lymph: No Bruising, No Bleeding,No Lymphadenopathy Endocrine : No Polyuria, No Polydipsia, No Temperature Intolerance [facility] Past Medical History Medical History Long-term insulin use in type 2 diabetes Hepatic steatosis Hypertriglyceridemia Hematuria Hyperlipidemia LDL goal <100 Obesity due to excess calories Diabetes type 2, uncontrolled Surgical History Hx of wisdom tooth extraction Hx of appendectomy Family History Family History Father DM2 (diabetes mellitus, type 2) Myocardial infarction Deep vein thrombosis Peripheral vascular disease History of left below knee amputation History of above-knee amputation Mother Hypertension Hyperlipidemia Fibromyalgia Diabetes Social History Social History Household Members: Family Household Members Other:: brother Housing: House Alcohol intake: current Alcohol intake frequency: does not drink Patient Tobacco Use Status: Never used Tobacco Smoked in Last 30 Days: No e-Cigarette/Vaping Use: Never Used Second Hand Smoke Exposure: No Use of substances other than those prescribed or required for medical reasons: No Advance Directives: No Advance Directives Information Provided: Yes service: Yes Current occupational status: employed 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 Oriented X3. No acute distress. Eyes: Pupils equal, round and reactive to light. ENT: Pharynx normal. Neck: Normal inspection. Neck supple. No lymph nodes noted. No crepitus CVS: Normal heart rate and rhythm. Pulses normal. Normal S1 and S2 Respiratory: No respiratory distress. Breath sounds normal. No Wheezing. No rales Abdomen: Soft and nontender. No rigidity. No distention. Flank pain on the right, positive CVA tenderness. No abdominal rebound or guarding Skin: Skin warm and dry. Normal skin color. Normal skin turgor. Extremities: No lower extremity edema. No Lacerations. No Rash Neuro: Oriented X 3. No motor deficit. No sensory deficit. Moving all extremities. No slurred speech. CN 2 through 12 grossly intact Psych: calm, cooperative, normal affect Course Course Course Narrative: Patient receiving IV fluids, Zofran and ketorolac IV. All of patient's labs and imaging pending. Medications Administered Discontinued Medications Generic Name Dose Route Start Last Admin Trade Name Freq PRN Reason Stop Dose Admin Sodium Chloride 1,000 mls @ 999 mls/hr 01/09/25 04:55 01/09/25 06:35 Ns IVCONT 01/09/25 05:55 Infused .Q1H1M ONE Infusion Levofloxacin 500 mg in 100 mls @ 100 mls/hr 01/09/25 04:55 01/09/25 06:47 Levaquin IV 01/09/25 05:54 Infused ONCE ONE Infusion Ketorolac Tromethamine 30 mg 01/09/25 04:55 01/09/25 05:03 Ketorolac Tromethamine 30 Mg/Ml Vial IVPUSH 01/09/25 04:56 30 mg ONCE ONE Administration Ondansetron HCl 4 mg 01/09/25 04:55 01/09/25 05:37 Ondansetron Hcl 4 Mg/2 Ml Vial IVPUSH 01/09/25 04:56 Not Given ONCE ONE Medical Decision Making Medical Decision Making [facility] Narrative: My interpretation of labs: Normal hematology, , urinalysis positive for nitrites blood normal chemistry no significant abnormality. CT scan shows a 2 mm stone in the right UPJ After IV treatment, patient feeling much better Differential Diagnosis Differential Diagnoses: The differential diagnosis associated with the presentation includes (Pyelonephritis, ureterolithiasis, musculoskeletal pain, UTI) Admission/Observation Consideration of admission/observation: Escalation of care including admission/observation considered (Given patient's symptoms and presentation, observation was considered) Lab Data [facility] Lab Attestation statement: I reviewed the patient's lab results. 01/09/25 04:29 01/09/25 05:10 Labs: Lab Results 01/09/25 01/09/25 Range/Units 04:29 05:10 WBC 9.1 (4.8-10.8) X10*3/uL RBC 5.04 (4.60-5.80) X10*6/uL Hgb 14.9 (14.0-18.0) g/dl Hct 42.5 (42.0-52.0) % MCV 84.3 (80.0-98.0) fL MCH 29.6 (27.0-33.0) pg MCHC 35.1 (31.0-36.0) g/dl RDW 12.6 (11.0-16.0) % Plt Count 225 (160-400) X10*3/uL MPV 9.1 L (9.4-12.4) fL Immature Gran % (Auto) 0.2 (0.0-0.4) % Neut % (Auto) 60.6 (45-73) % Lymph % (Auto) 29.3 (20-40) % [place] % (Auto) 6.1 (2-11) % Eos % (Auto) 3.5 (0-4) % Baso % (Auto) 0.3 (0-2) % Lymph # (Auto) 2.7 (1.2-4.9) X10*3/uL [place] # (Auto) 0.6 (0.1-1.2) X10*3/uL Eos # (Auto) 0.3 (0.0-0.4) X10*3/uL Baso # (Auto) 0.0 (0.0-0.2) X10*3/uL Abs Immat Gran (auto) 0.02 (0.00-0.03) X10*3/uL Absolute Neuts (auto) 5.5 (2.0-8.3) x10*3/uL Absolute Nucleated RBC 0.000 (0.0-0.012) X10*3/uL Nucleated RBC % (auto) 0.0 (0.0-0.2) /100WBC Sodium 140 (135-145) mmol/L Potassium 3.7 (3.3-5.1) mmol/L Chloride 113 H (96-108) mmol/L Carbon Dioxide 19 L (22-29) mmol/L Anion Gap 12 (12-20) BUN 16 (9-16) mg/dL Creatinine 0.82 (0.5-1.4) mg/dL Estim Creat Clear Calc 130.9 Estimated GFR > 60 Random Glucose 131 H (60-115) mg/dL Calcium 8.6 D (8.4-10.2) mg/dL Total Bilirubin 0.3 (0.0-1.0) mg/dL AST 37 (5-37) U/L ALT 57 H (0-40) U/L Alkaline Phosphatase 51 (39-117) U/L Total Protein 6.5 (6.5-8.0) g/dL Albumin 3.8 (3.5-5.0) g/dL Urine Color BROWN Urine Appearance Turbid Urine pH 5.5 (5.0-9.0) Ur Specific [place] >= 1.030 H (1.005-1.025) Urine Protein 300 (3+) H (Neg-Trace) mg/dL Urine Glucose (UA) Negative (Negative) mg/dL Urine Ketones Negative (Negative) mg/dL Urine Blood Large (3+) H (Negative) Urine Nitrite Positive H (Negative) Ur Leukocyte Esterase Negative (Negative) Urine RBC >20 H (0-2) /HPF Urine WBC 0-5 (0-5) /HPF Ur Squamous Epith Cells 0-2 (0-2) /HPF Calcium Oxalate Crystal Present Urine Bacteria Trace (None Seen) Hyaline Casts 0-2 (0-2) /LPF Independent Interpretation I performed an independent interpretation of an: CT Scan Interpretation: The appearance of the liver suggests fatty infiltration without focal lesion. The gallbladder and solid organs are otherwise within normal limits. There is minimal right hydroureteronephrosis secondary to a 2 mm ureterovesicular junction calculus. No bowel obstruction, pneumoperitoneum, or pneumatosis. Pelvic contents unremarkable. Normal appendix. No acute fracture. IMPRESSION: 1. Minimal right hydroureteronephrosis secondary to a 2 mm ureterovesicular junction calculus. 2. Hepatic steatosis Radiology Impression Discussion of test interpretation with radiology: I have reviewed the radiologist's reading. Critical Care Time Critical Care Time Critical Care Time: Yes Total Critical Care Time: 35 Attestation: I have personally provided critical care time. Time includes review of lab data, radiology results, discussion with consultants, and monitoring for potential decompensation. Intervention performed as documented. Discharge Plan Discharge Clinical Impression: Ureterolithiasis, Acute UTI Patient Disposition: Home, Self-Care Instructions: Ureteral Stones (ED) Additional Instructions: Please follow-up with your primary care physician tomorrow. If you have any worsening or new symptoms, please return to the emergency room or call 911 Prescriptions: New levofloxacin 500 mg tablet 500 mg PO DAILY Qty: 7 0RF tamsulosin 0.4 mg capsule 0.4 mg PO BEDTIME Qty: 7 0RF ketorolac 10 mg tablet 10 mg PO TID PRN (Reason: pain) 5 Days Qty: 15 0RF ondansetron HCl 4 mg tablet 4 mg PO Q6H PRN (Reason: nausea and vomiting) Qty: 10 0RF No Action (DME) FreeStyle Lite Strips Strip See Rx Instructions .ROUTE .COMPLEX Qty: 100 11RF Dose Instruction: TEST 4 TIMES A DAY Rx Instructions: TEST 4 TIMES A DAY atorvastatin 80 mg tablet 80 mg PO BEDTIME Qty: 30 5RF (DME) FreeStyle Juan Jose 3 Plus Sensor Device See Rx Instructions .ROUTE .MEDSUPPLY Qty: 2 11RF Rx Instructions: As directed fenofibrate nanocrystallized 145 mg tablet 145 mg PO DAILY 30 Days Qty: 30 3RF (DME) pen needle, diabetic [Comfort EZ Pen Madison] 31 gauge x 5/16 needle See Rx Instructions .Route Qty: 400 3RF Rx Instructions: As directed qid (DME) lancets 28 gauge misc See Rx Instructions topical TID Qty: 100 Rx Instructions: As directed 4 times a day (DME) blood-glucose meter [FreeStyle Lite Meter] Kit See Rx Instructions .ROUTE .MEDSUPPLY Qty: 1 0RF Rx Instructions: 4 x/day (DME) FreeStyle Juan Jose 2 Sensor Kit See Rx Instructions .Route Qty: 3 3RF Rx Instructions: As directed Ozempic 2 mg/dose (8 mg/3 mL) pen injector 2 mg subcut QWEEK 28 Days Qty: 3 10RF insulin lispro [Humalog KwikPen Insulin] 100 unit/mL insulin pen See Rx Instructions subcut TID 90 Days Qty: 27 8RF Rx Instructions: 18 units for breakfast and lunch, 28 units for supper , plus up to 6 units additional units at meals for elevated blood sugars as directed subcutaneously 3 times a day; Mounjaro 2.5 mg/0.5 mL pen injector 2.5 mg subcut QWEEK 84 Days Qty: 6 3RF Rx Instructions: for 4 weeks insulin glargine [Lantus Solostar U-100 Insulin] 100 unit/mL (3 mL) insulin pen 80 unit subcut DAILY 90 Days Qty: 72 3RF gabapentin 100 mg capsule 100 mg PO TID PRN (Reason: nerve pain) Qty: 40 0RF Rx Instructions: can cause drowsiness. Do not work or drive while taking Referrals: Bipin Cheng MD [Physician] - 01/11/25 Print Language: Hong Konger
[2025-01-09] MEDS: 0.9 % Sodium Chloride 1,000 ML 999 ML IVCONT (05:00)
[2025-01-09] MEDS: Ketorolac Tromethamine 30 MG/ML VIAL IVPUSH (05:03)
--- NOTE | 2025-01-09 05:31 | PC.NURSE ---
pt taken to Ct-scan, will medicated upon arrival to room, pt was medicated for pain managment.
[2025-01-09 05:33] LABS: Alanine Aminotransferase 57 U/L (0-40); Albumin Level 3.8 g/dL (3.5-5.0); Alkaline Phosphatase 51 U/L (39-117); Anion Gap 12 (12-20); Aspartate Amino Transferase 37 U/L (5-37); Bilirubin Total 0.3 mg/dL (0.0-1.0); Blood Urea Nitrogen 16 mg/dL (9-16); Calcium 8.6 mg/dL (8.4-10.2); Carbon Dioxide 19 mmol/L (22-29); Chloride 113 mmol/L (96-108); Creatinine Clr Calc Pharmacy 130.9; Estimated Glomerular Filt Rate > 60; Glucose Random 131 mg/dL (60-115); Potassium 3.7 mmol/L (3.3-5.1); Sodium 140 mmol/L (135-145); Total Protein 6.5 g/dL (6.5-8.0)
[2025-01-09] MEDS: levoFLOXacin/D5W 500 MG/100 ML PIGGYBACK 100 MG IV (05:35)
--- NOTE | 2025-01-09 05:41 | PC.NURSE ---
pt back from CT-Scan medicated per mar and warm blanket given
--- OUTSIDE RECORDS SUMMARY | 2025-01-09 05:59 | XMS_ITS | Clinical Summary ---
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 Name Role Phone Esperanza Wade LAURA Primary Care Provider [phone] Encounters Date Type Department Care Team Description 12/01/2024 1:21 PM EST - 12/01/2024 11:59 PM EST Hospital Encounter [facility] Ultrasound [address] [place] [phone] Occupational exposure to air contaminants Discharge Disposition: Home or Self Care 12/01/2024 1:21 PM EST - 12/01/2024 11:59 PM EST Hospital Encounter [facility] Ultrasound [address] [place] [phone] Occupational exposure to air contaminants Discharge Disposition: Home or Self Care 12/01/2024 1:21 PM EST - 12/01/2024 11:59 PM EST Hospital Encounter [facility] Ultrasound [address] [place] [phone] Occupational exposure to air contaminants Discharge Disposition: Home or Self Care 12/01/2024 1:21 PM EST - 12/01/2024 11:59 PM EST Hospital Encounter [facility] Ultrasound [address] [place] [phone] Occupational exposure to air contaminants Discharge Disposition: Home or Self Care 10/30/2024 1:58 PM EST - 10/30/2024 11:59 PM EST Hospital Encounter [facility] CT Scan [address] [place] [phone] Occupational exposure to air contaminants Discharge Disposition: Home or Self Care from Last 3 Months Family History Medical [...] on file Obstetrics History Plan of Treatment Health Maintenance Due Date Last Done Comments DTaP,Tdap,and Td Vaccines (1 - Tdap) 1998 Hepatitis B Vaccines (1 of 3 - 19+ 3-dose series) 1998 Cholesterol Screening (Lipid Panel) 10/31/2023 Colorectal Cancer Screening: Colonoscopy 10/31/2023 Depression Screening 10/31/2023 HIV Screening 10/31/2023 Hepatitis C Screening 10/31/2023 Social Influencers of Health Screening 10/31/2023 COVID-19 Vaccine (2023-2 5 season) 2024 11/16/2020, 10/18/2020 Influenza Vaccine (Season Ended) 2025 06/08/2020, 06/18/2017 Pneumococcal Vaccine: Pediatrics (0 to 5 [...] Procedure Name Priority Date/Time Associated Diagnosis Comments US PELVIS NON OB LIMITED OR FOLLOWUP Routine 12/01/2024 3:20 PM EST Occupational exposure to air contaminants US SCROTUM AND CONTENTS Routine 12/01/2024 2:30 PM EST Occupational exposure to air contaminants US HEAD NECK SOFT TISSUE Routine 12/01/2024 2:30 PM EST Occupational exposure to air contaminants US ABDOMEN COMPLETE Routine 12/01/2024 2:29 PM EST Occupational exposure to air contaminants PROSTATE SPECIFIC ANTIGEN SCREEN Routine 12/01/2024 1:17 PM EST Occupational exposure to air contaminants CT LUNG SCREENING Routine 10/30/2024 2:2 8 PM EST Occupational exposure to air contaminants from Last 3 Months Results * US Pelvis Non OB Limited or Followup (12/01/2024 3:20 PM EST) Anatomical Region Laterality Modality Body, Pelvis Ultrasound 12/07/2024 4:02 PM EST Impressions 12/07/2024 4:03 PM EST Impression: 1. Normal bladder ultrasound. 2. Normal prostate volume. Telerad CARLOS MANUEL ([id number]) -------- FINAL REPORT -------- Dictated By: Samara Pacheco Dictated Date: 12/07/2024 16:02 ET Assigned Physician: Samara Pacheco Reviewed and Electronically Signed By: Samara Pacheco Signed Date: 12/07/2024 16:03 ET Workstation ID: [id number] Transcribed By: Self Edit Transcribed Date: 12/07/2024 16:02 ET Narrative 12/07/2024 4:03 PM EST History: Landscaper screening program. Occupational exposure to air contaminants. Findings: Real-time imaging of the pelvis was performed. The partially distended urinary bladder (volume 169 cc) shows no significant abnormality. Both ureteral jets are demonstrated with Doppler. 4 cc of postvoid bladder residual are noted. Prostate volume is normal, at 20 cc. No pelvic ascites is identified. Procedure Note Samara Pacheco MD - 12/07/2024 History: Landscaper screening program. Occupational exposure to aircontaminants. Findings: Real-time imaging of the pelvis was performed. The partially distendedurinary bladder (volume 169 cc) shows no significant abnormality. Bothureteral jets are demonstrated with Doppler. 4 cc of postvoid bladderresidual are noted. Prostate volume is normal, at 20 cc. No pelvic ascites is identified. IMPRESSION: Impression: 1. Normal bladder ultrasound. 2. Normal prostate volume. Telearlen HOROWITZ ([id number]) -------- FINAL REPORT -------- Dictated By: Samara Pacheco Dictated Date: 12/07/2024 16:02 ET Assigned Physician: Samara Pacheco Reviewed and Electronically Signed By: Samara Pacheco Signed Date: 12/07/2024 16:03 ET Workstation ID: [id number] Transcribed By: Self Edit Transcribed Date: 12/07/2024 16:02 ET us Nini HOROWITZ IMG US PROCEDURES Final Resul t * US Scrotum and Contents (12/01/2024 2:30 PM EST) Anatomical Region Laterality Modality Body Ultrasound 12/07/2024 3:38 PM EST Impressions 12/07/2024 3:57 PM EST Impression: Normal scrotal ultrasound. Telerad CARLOS MANUEL ([id number]) -------- FINAL REPORT -------- Dictated By: Samara Pacheco Dictated Date: 12/07/2024 15:38 ET Assigned Physician: Samara Pacheco Reviewed and Electronically Signed By: Samara Pacheco Signed Date: 12/07/2024 15:57 ET Workstation ID: [id number] Transcribed By: Self Edit Transcribed Date: 12/07/2024 15:38 ET Narrative 12/07/2024 3:57 PM EST History: Landscaper screening program. Occupational exposure to air contaminants. Findings: High resolution real-time imaging of the scrotal contents was performed. The testes are normal in echotexture and size, measuring 5.4 x 2.3 x 3.7 cm on the right and 5.0 x 2.3 x 3.6 cm on the left. No testicular masses are seen. Intratesticular blood flow is symmetric and normal by Doppler analysis. The epididymis is normal bilaterally. No hydrocele or varicocele is seen. Procedure Note Samara Pacheco MD - 12/07/2024 History: Landscaper screening program. Occupational exposure to aircontaminants. Findings: High resolution real-time imaging of the scrotal contents was performed. The testes are normal in echotexture and size, measuring 5.4 x 2.3 x 3.7cm on the right and 5.0 x 2.3 x 3.6 cm on the left. No testicular massesare seen. Intratesticular blood flow is symmetric and normal by Doppleranalysis. The epididymis is normal bilaterally. No hydrocele or varicocele is seen. IMPRESSION: Impression: Normal scrotal ultrasound. Nella HOROWITZ ([id number]) -------- FINAL REPORT -------- Dictated By: Samara Pacheco Dictated Date: 12/07/2024 15:38 ET Assigned Physician: Samara Pacheco Reviewed and Electronically Signed By: Samara Pacheco Signed Date: 12/07/2024 15:57 ET Workstation ID: [id number] Transcribed By: Self Edit Transcribed Date: 12/07/2024 15:38 ET us Nini HOROWITZ IMTin US PROCEDURES Final Resul t * US Head Neck Soft Tissue (12/01/2024 2:30 PM EST) Anatomical Region Laterality Modality Head and Neck Ultrasound 12/07/2024 4:00 PM EST Impressions 12/07/2024 4:01 PM EST Normal thyroid ultrasound. Nella HOROWITZ ([id number]) -------- FINAL REPORT -------- Dictated By: Samara Pacheco Dictated Date: 12/07/2024 16:00 ET Assigned Physician: Samara Pacheco Reviewed and Electronically Signed By: Samara Pacheco Signed Date: 12/07/2024 16:01 ET Workstation ID: [id number] Transcribed By: Self Edit Transcribed Date: 12/07/2024 16:00 ET Narrative 12/07/2024 4:01 PM EST History: Landscaper screening program. Occupational exposure to air contaminants. COMPARISON: No comparison studies. FINDINGS: High resolution real-time imaging of the thyroid gland was performed. RIGHT LOBE: The right lobe is normal in size, measuring 3.5 cm in length by 1.5 cm in depth by 1.5 cm in width. The thyroid parenchyma is homogeneous. No nodules are identified. LEFT LOBE: The left lobe is normal in size, measuring 3.7 cm in length by 1.5 cm in depth by 1.4 cm in width. The thyroid parenchyma is homogeneous. No nodules are seen. ISTHMUS: The isthmus is normal in thickness, measuring 0.4 cm. No nodules are identified. Procedure Note Samara Pacheco MD - 12/07/2024 History: Landscaper screening program. Occupational exposure to aircontaminants. COMPARISON: No comparison studies. FINDINGS: High resolution real-time imaging of the thyroid gland was performed. RIGHT LOBE: The right lobe is normal in size, measuring 3.5 cm in length by 1.5 cm indepth by 1.5 cm in width. The thyroid parenchyma is homogeneous. Nonodules are identified. LEFT LOBE: The left lobe is normal in size, measuring 3.7 cm in length by 1.5 cm indepth by 1.4 cm in width. The thyroid parenchyma is homogeneous. Nonodules are seen. ISTHMUS: The isthmus is normal in thickness, measuring 0.4 cm. No nodules areidentified. IMPRESSION: Normal thyroid ultrasound. Telerad CARLOS MANUEL ([id number]) -------- FINAL REPORT -------- Dictated By: Samaar Pacheco Dictated Date: 12/07/2024 16:00 ET Assigned Physician: Samara Pacheco Reviewed and Electronically Signed By: Samara Pacheco Signed Date: 12/07/2024 16:01 ET Workstation ID: [id number] Transcribed By: Self Edit Transcribed Date: 12/07/2024 16:00 ET us Nini Wu PA IMG US PROCEDURES Final Resul t * US Abdomen Complete (12/01/2024 2:29 PM EST) Anatomical Region Laterality Modality Body Ultrasound 12/07/2024 3:57 PM EST Impressions 12/07/2024 4:00 PM EST Impression: 1. Fatty liver. 2. Mild splenomegaly. 3. No evidence of cholelithiasis or biliary obstruction. Telearlen HOROWITZ ([id number]) -------- FINAL REPORT -------- Dictated By: Samara Pacheco Dictated Date: 12/07/2024 15:57 ET Assigned Physician: Samara Pacheco Reviewed and Electronically Signed By: Samara Pacheco Signed Date: 12/07/2024 16:00 ET Workstation ID: [id number] Transcribed By: Self Edit Transcribed Date: 12/07/2024 15:57 ET Narrative 12/07/2024 4:00 PM EST History: Landscaper screening program. Occupational exposure to air contaminants. Comparison: No comparison imaging at this institution. Findings: Real-time imaging of the abdomen was performed. The hepatic echogenicity is moderately increased, with poor visualization the avery of the peripheral portal venous vasculature and limited penetration of the liver, consistent with fatty infiltration. There are characteristic areas of focal fatty sparing adjacent to the gallbladder fossa. No masses are identified. The portal vein is patent and exhibits normal, hepatopedal flow. The gallbladder is physiologically distended and without evidence of calculus or wall thickening. The common duct is normal in caliber, measuring 3 mm at the level of the hepatic artery and portal vein. The spleen is mildly enlarged, measuring 13.6 cm in length. No ascites is identified. The pancreas is partially obscured by bowel gas shadowing; the visualized portions of the neck appear normal. The kidneys are normal in position and size, measuring 11.5 cm in length on the right and 12.9 cm on the left. No masses, calculi or hydronephrosis are seen. No abdominal aortic aneurysm is identified. The visualized portions of the IVC appear normal. Procedure Note Samara Pacheco MD - 12/07/2024 History: Landscaper screening program. Occupational exposure to aircontaminants. Comparison: No comparison imaging at this institution. Findings: Real-time imaging of the abdomen was performed. The hepatic echogenicity is moderately increased, with poor visualizationthe avery of the peripheral portal venous vasculature and limitedpenetration of the liver, consistent with fatty infiltration. There arecharacteristic areas of focal fatty sparing adjacent to the gallbladderfossa. No masses are identified. The portal vein is patent and exhibitsnormal, hepatopedal flow. The gallbladder is physiologically distended and without evidence ofcalculus or wall thickening. The common duct is normal in caliber,measuring 3 mm at the level of the hepatic artery and portal vein. The spleen is mildly enlarged, measuring 13.6 cm in length. No ascites isidentified. The pancreas is partially obscured by bowel gas shadowing; the visualizedportions of the neck appear normal. The kidneys are normal in position and size, measuring 11.5 cm in lengthon the right and 12.9 cm on the left. No masses, calculi or hydronephrosisare seen. No abdominal aortic aneurysm is identified. The visualized portions of theIVC appear normal. IMPRESSION: Impression: 1. Fatty liver. 2. Mild splenomegaly. 3. No evidence of cholelithiasis or biliary obstruction. Nella HOROWITZ ([id number]) -------- FINAL REPORT -------- Dictated By: Samara Pacheco Dictated Date: 12/07/2024 15:57 ET Assigned Physician: Samara Pacheco Reviewed and Electronically Signed By: Samara Pacheco Signed Date: 12/07/2024 16:00 ET Workstation ID: [id number] Transcribed By: Self Edit Transcribed Date: 12/07/2024 15:57 ET us Nini HOROWITZ [facility] US PROCEDURES Final Resul t * Prostate specific antigen screen (12/01/2024 1:17 PM EST) PSA 0.60 0.00 - 4.00 ng/mL LAB CHEMISTRY METHOD 12/01/2024 4:01 PM EST [facility] Blood Venous blood specimen / Unknown Venipuncture / Unknown 12/01/2024 1:17 PM EST 12/01/2024 1:52 PM EST Narrative [facility] - 12/01/2024 4:01 PM EST The Siemens Advia Centaur Chemiluminescent Immunoassay is used. Results obtained with different assay methods or kits cannot be used interchangeably. Results cannot be interpreted as absolute evidence of the presence or absence of malignant disease. Nini HOROWITZ LAB BLOOD ORDERABLES Final Re sult [facility] ([facility]) [facility] [address] [place] [address], [place] [phone] * CT Lung Screening (10/30/2024 2:28 PM [...] Signed Date: 11/04/2024 11:27 ET Workstation ID: [id number] Transcribed By: Self Edit Transcribed Date: 11/04/2024 [...] Signed Date: 11/04/2024 11:27 ET Workstation ID: [id number] Transcribed By: Self Edit Transcribed Date: 11/04/2024 11:27 ET Nini HOROWITZ [facility] CT PROCEDURES Final Resul t from Last 3 Months Insurance [employer] Care Teams Wind Energy Project Manager Relationship Specialty Start Date End Date Esperanza Wade FNP [address] [place] [phone] PCP - General Family Medicine 10/05/24
[2025-01-09 06:06] VITALS: BP 116/64; PULSE 73; RESP 16; TEMP 36.7; O2SAT 96
[2025-01-09 07:07] VITALS: BP 116/64; PULSE 73; RESP 18; TEMP 36.7; O2SAT 96
== END 2025-01-09 07:08 | disposition home or self-care (01) ==
PROVIDERS: Emergency Provider Emergency Medicine
DX: N13.2 Hydronephrosis with renal and ureteral calculous obstruction (principal); N39.0 Urinary tract infection, site not specified; R10.9 Unspecified abdominal pain; E11.9 Type 2 diabetes mellitus without complications; E78.5 Hyperlipidemia, unspecified; E66.9 Obesity, unspecified; Z68.36 Body mass index [BMI] 36.0-36.9, adult; Z79.4 Long term (current) use of insulin
CPT/HCPCS: 36415; 74176; 80053; 81001; 85025; 87086; 96361; 96374; 96375; 99284; 99285; J1885; J1956

== ENCOUNTER → 2025-01-09 04:55 | Outpatient (BNV) | payer OTHER, SELFPAY | PROVIDERS: Emergency Provider Emergency Medicine; Visit Provider Specialist | DX: K76.0 Fatty (change of) liver, not elsewhere classified (principal) | CPT/HCPCS: 74176 ==

== ENCOUNTER 2025-01-12 11:02 | Outpatient (AMB) | payer OTHER, SELFPAY ==
--- NOTE | 2025-01-12 09:13 | A.OFFVIS_ITS ---
Vital Signs 01/12/25 11:03 Height 5 ft 7 in Weight 238 lb 1.588 oz BMI 37.3 BP 120/82 Blood Pressure Location Rt brachial Position Sitting Pulse 81 Pulse Source Pulse Oximeter Pulse Oximetry (%) 96 Oxygen Delivery Method Room Air Intake Visit Reasons: DM Intake Note: Patient presents today for a follow-up on Type 2 Diabetes Mellitus: Last Diabetic eye exam was on: 10/19/2024, [facility] 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 He is currently on basal bolus insulin plus GLP 1 agonist. 11/18/24 7.9%, hgb a1c was 8.0% Previous A1c 01/25/2024 was 7.4% pre meal insulin was increased at his last visit and he was switched from Ozempic to Mounjaro. He was on mounjaro in the past and found it worked better for him in controlling his glucose. He was able to get this through his insurance but co-pay increase dramatically. Took Jardiance in the past but had symptoms upset stomach metformin regular and XR caused GI upset 500 mg b.i.d. Past medical history: HTn, DM2, HLD, hypertriglyceridemia and fatty liver Micro and macrovascular complications: none known Diabetes medications: Lantus 80 units Humalog 24 breakfast and lunch 28 units for meals tid correction for blood sugars over 200 +2 units, over 250+ 4 units and over 300+ 6 units Mounjaro 5.0mg weekly Dex denies numbness, tingling, cramping in lower extremities Hypoglycemia: denies Hyperglycemia: denies polyuria No neuropathy: denies numbness, tingling, cramping in lower extremities No retinopathy: Last eye exam was 10/2024 no9 retinopathy No Nephropathy: 05/21/23 microalbumin 15.0 05/17/24 eGFR>60 HLD on statin most recent 05/2024 LDL 109 Denies CAD. Denies symptoms of chest pain, dyspnea or claudication. Exercise: goes to camp and does outdoor projects. [facility] Medical History (Updated 01/12/25 @ 11:31 by Raiza Dejesus NP) Kidney stones Long-term insulin use in type 2 diabetes Hepatic steatosis Hypertriglyceridemia Hematuria Hyperlipidemia LDL goal <100 Obesity due to excess calories Diabetes type 2, uncontrolled Surgical History Hx of wisdom tooth extraction Hx of appendectomy Family History Father DM2 (diabetes mellitus, type 2) Myocardial infarction Deep vein thrombosis Peripheral vascular disease History of left below knee amputation History of above-knee amputation Mother Hypertension Hyperlipidemia Fibromyalgia Diabetes Social History Household Members: Family Household Members Other:: brother Housing: House Alcohol intake: current Alcohol intake frequency: does not drink Patient Tobacco Use Status: Never used Tobacco e-Cigarette/Vaping Use: Never Used Second Hand Smoke Exposure: No service: Yes Current occupational status: employed 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 Absence of acromegalic features. Neck exam reveals nl size thyroid about 15 gms. No thyroid nodules palpable. No carotid bruits present. Lungs CTA. Heart S1 S2, Reg R/R. No M/R G. Skin exam reveals absence of vitiligo or acanthosis nigricans. No edema Visual exam of foot performed. No ulcerations or open lesions. No inter digit maceration or fissuring. No onychomycosis, no callouses. Sensation intact to monofilament exam. Vibratory sensation is normal with 128 Hz tuning fork. Results Reviewed Results Reviewed: Laboratory Last Values Glucose (Clinic) 206 mg/dL (60-115) H 01/12/25 11:09 Assessment & Plan Assessment & Plan (1) Diabetes type 2, uncontrolled: Code(s): E11.65 - Type 2 diabetes mellitus with hyperglycemia Category: Medical Qualifiers: Glycemic state: with hyperglycemia Qualified Code(s): E11.65 - Type 2 diabetes mellitus with hyperglycemia Plan: 44-year-old type 2 diabetic with no known macro/macrovascular complications on basal bolus insulin plus GLP 1 agonist with the an A1c of 7/9% on 11/18/24 with improving glycemic control. He would like to work on diet and exercise rather than change dosing. The patient had an opportunity to ask questions regarding treatment plan. The patient expressed understanding and agreement with the above treatment plan. The patient is aware they should contact our office by phone for worsening glucose readings or for any low blood sugars which may warrant a change in diabetes medication. Compliance is encouraged with medications and any followup testing/consults which may have been ordered. Orders: Orders Vitamin D 25-OH Total 01/12/25 N20.0 - Calculus of kidney Medications: Discontinued semaglutide Discontinued Reason: Doctor's Order 2 mg (0.75 mL) subcut QWEEK 28 days 3 mL 10RF Patient Instructions: The patient was counseled to achieve a target A1C of 7% (154 avg). Fasting blood sugars should be 90-130 in the morning and less than 180 two hours after meals. Reviewed the relationship between poor diabetic control and the development of complications. Check your feet daily looking for any signs of infection, drainage, redness, ulceration and seek medical attention if this occurs. Break in shoes gradually and do not wear open-toed shoes or walk stocking footed or barefooted. Sick day management reviewed. Coding Level of Care Code Est Pt Level 4 (31862) Complex EM visit Add On G2211 Diagnoses Uncontrolled type 2 diabetes mellitus with hyperglycemia E11.65 Glycemic state: with hyperglycemia
[2025-01-12 11:03] VITALS: BP 120/82; PULSE 81; O2SAT 96; BMI 37.3
[2025-01-12 11:13] LABS: Glucose, Whole Blood 206 mg/dL (60-115)
--- OUTSIDE RECORDS SUMMARY | 2025-01-12 13:25 | XMS_ITS | Clinical Summary ---
Author Organization [facility] Address [address] [place] [address] Phone Care Team Providers Care Multimedia Instructional Designer Name Role Phone Esperanza Wade LAURA Primary Care Provider [phone] Encounters Date Type Department Care Team Description 12/01/2024 1:21 PM EST - 12/01/2024 11:59 PM EST Hospital Encounter [facility] Ultrasound [address] [place] [phone] Occupational exposure to air contaminants Discharge Disposition: Home or Self Care 12/01/2024 1:21 PM EST - 12/01/2024 11:59 PM EST Hospital Encounter [facility]ound [address] [place] [phone] Occupational exposure to air contaminants Discharge Disposition: Home or Self Care 12/01/2024 1:21 PM EST - 12/01/2024 11:59 PM EST Hospital Encounter [facility]ound [address] [place] [phone] Occupational exposure to air contaminants Discharge Disposition: Home or Self Care 12/01/2024 1:21 PM EST - 12/01/2024 11:59 PM EST Hospital Encounter [facility] Ultrasound [address] [place] [phone] Occupational exposure to air contaminants Discharge Disposition: Home or Self Care 10/30/2024 1:58 PM EST - 10/30/2024 11:59 PM EST Hospital Encounter [facility] CT Scan [address] [place] [phone] Occupational exposure to air contaminants Discharge Disposition: [...] age to complete this topic Meningococcal B Vaccine Aged Out No l onger eligible based on patient's age to complete [...] 2. Normal prostate volume. Telerad CARLOS MANUEL ([id number]) -------- FINAL REPORT -------- Dictated By: Samara Pacheco Dictated Date: 12/07/2024 16:02 ET Assigned Physician: Samara Pacheco Reviewed and Electronically Signed By: Samara Pacheco Signed Date: 12/07/2024 16:03 ET Workstation ID: [id number] Transcribed By: Self Edit Transcribed Date: 12/07/2024 16:02 ET Narrative 12/07/2024 4:03 PM EST History: Digital Account Coordinator screening program. Occupational exposure to air contaminants. Findings: Real-time imaging of the pelvis was performed. The partially distended urinary bladder (volume 169 cc) shows no significant abnormality. Both ureteral jets are demonstrated with Doppler. 4 cc of postvoid bladder residual are noted. Prostate volume is normal, at 20 cc. No pelvic ascites is identified. Procedure Note Samara Pacheco MD - 12/07/2024 History: Digital Account Coordinator screening program. Occupational exposure to aircontaminants. Findings: Real-time imaging of the pelvis was performed. The partially distendedurinary bladder (volume 169 cc) shows no significant abnormality. Bothureteral jets are demonstrated with Doppler. 4 cc of postvoid bladderresidual are noted. Prostate volume is normal, at 20 cc. No pelvic ascites is identified. IMPRESSION: Impression: 1. Normal bladder ultrasound. 2. Normal prostate volume. Telerad CARLOS MANUEL ([id number]) -------- FINAL REPORT -------- Dictated By: Samara Pacheco Dictated Date: 12/07/2024 16:02 ET Assigned Physician: Samara Pacheco Reviewed and Electronically Signed By: Samara Pacheco Signed Date: 12/07/2024 16:03 ET Workstation ID: [id number] Transcribed By: Self Edit Transcribed Date: 12/07/2024 16:02 ET us Nini HOROWITZ IMG US PROCEDURES Final Resul t * US Scrotum and Contents (12/01/2024 2:30 PM EST) Anatomical Region Laterality Modality Body Ultrasound 12/07/2024 3:38 PM EST Impressions 12/07/2024 3:57 PM EST Impression: Normal scrotal ultrasound. Telerad CARLOS MANUEL ([id number]) -------- FINAL REPORT -------- Dictated By: Samara Pacheco Dictated Date: 12/07/2024 15:38 ET Assigned Physician: Samara Pacheco Reviewed and Electronically Signed By: Samara Pacheco Signed Date: 12/07/2024 15:57 ET Workstation ID: [id number] Transcribed By: Self Edit Transcribed Date: 12/07/2024 15:38 ET Narrative 12/07/2024 3:57 PM EST History: Digital Account Coordinator screening program. Occupational exposure to air contaminants. [...] Note Samara Pacheco MD - 12/07/2024 History: Digital Account Coordinator screening program. Occupational exposure to aircontaminants. Findings: [...] IMPRESSION: Impression: Normal scrotal ultrasound. Nella HOROWITZ ([id number]) -------- FINAL REPORT -------- Dictated By: Samara Pacheco Dictated Date: 12/07/2024 15:38 ET Assigned Physician: Samara Pacheco Reviewed and Electronically Signed By: Samara Pacheco Signed Date: 12/07/2024 15:57 ET Workstation ID: [id number] Transcribed By: Self Edit Transcribed Date: 12/07/2024 15:38 ET us Nini HOROWITZ IMG US PROCEDURES Final Resul t * US Head Neck Soft Tissue (12/01/2024 2:30 PM EST) Anatomical Region Laterality Modality Head and Neck Ultrasound 12/07/2024 4:00 PM EST Impressions 12/07/2024 4:01 PM EST Normal thyroid ultrasound. Nella HOROWITZ ([id number]) -------- FINAL REPORT -------- Dictated By: Samara Pacheco Dictated Date: 12/07/2024 16:00 ET Assigned Physician: Samara Pacheco Reviewed and Electronically Signed By: Samara Pacheco Signed Date: 12/07/2024 16:01 ET Workstation ID: [id number] Transcribed By: Self Edit Transcribed Date: 12/07/2024 16:00 ET Narrative 12/07/2024 4:01 PM EST History: Digital Account Coordinator screening program. Occupational exposure to air contaminants. [...] Note Samara Pacheco MD - 12/07/2024 History: Digital Account Coordinator screening program. Occupational exposure to aircontaminants. COMPARISON: [...] IMPRESSION: Normal thyroid ultrasound. Telerad CARLOS MANUEL ([id number]) -------- FINAL REPORT -------- Dictated By: Samara Pacheco Dictated Date: 12/07/2024 16:00 ET Assigned Physician: Samara Pacheco Reviewed and Electronically Signed By: Samara Pacheco Signed Date: 12/07/2024 16:01 ET Workstation ID: [id number] Transcribed By: Self Edit Transcribed Date: 12/07/2024 16:00 ET Nini HOROWITZ IMG US PROCEDURES Final Resul t * US Abdomen Complete (12/01/2024 2:29 PM EST) Anatomical Region Laterality Modality Body Ultrasound 12/07/2024 3:57 PM EST Impressions 12/07/2024 4:00 PM EST Impression: 1. Fatty liver. 2. Mild splenomegaly. 3. No evidence of cholelithiasis or biliary obstruction. Telearlen HOROWITZ ([id number]) -------- FINAL REPORT -------- Dictated By: Samara Pacheco Dictated Date: 12/07/2024 15:57 ET Assigned Physician: Samara Pacheco Reviewed and Electronically Signed By: Samara Pacheco Signed Date: 12/07/2024 16:00 ET Workstation ID: [id number] Transcribed By: Self Edit Transcribed Date: 12/07/2024 15:57 ET Narrative 12/07/2024 4:00 PM EST History: Digital Account Coordinator screening program. Occupational exposure to air contaminants. [...] Note Samara Pacheco MD - 12/07/2024 History: Digital Account Coordinator screening program. Occupational exposure to aircontaminants. Comparison: No comparison imaging at this institution. Findings: Real-time imaging of the abdomen was performed. The hepatic echogenicity is moderately increased, with poor visualizationthe aevry of the peripheral portal venous vasculature and [...] of cholelithiasis or biliary obstruction. Nella HOROWITZ ([id number]) -------- FINAL REPORT -------- Dictated By: Samara Pacheco Dictated Date: 12/07/2024 15:57 ET Assigned Physician: Samara Pacheco Reviewed and Electronically Signed By: Samara Pacheco Signed Date: 12/07/2024 16:00 ET Workstation ID: [id number] Transcribed By: Self Edit Transcribed Date: 12/07/2024 15:57 ET us Nini HOROWITZ [facility] [place] PROCEDURES Final Resul t * Prostate specific antigen screen (12/01/2024 1:17 PM EST) PSA 0.60 0.00 - 4.00 ng/mL LAB CHEMISTRY METHOD 12/01/2024 4:01 PM EST [facility] Blood Venous blood specimen / Unknown Venipuncture / Unknown 12/01/2024 1:17 PM EST 12/01/2024 1:52 PM EST Narrative [facility] - 12/01/2024 4:01 PM EST The Siemens Advia Centaur Chemiluminescent Immunoassay is used. Results obtained with different assay methods or kits cannot be used interchangeably. Results cannot be interpreted as absolute evidence of the presence or absence of malignant disease. Nini HOROWITZ LAB BLOOD ORDERABLES Final Re sult [facility] [address] [place] [address], [place] [phone] * CT Lung Screening (10/30/2024 2:28 PM [...] Signed Date: 11/04/2024 11:27 ET Workstation ID: [id number] Transcribed By: Self Edit Transcribed Date: 11/04/2024 [...] Signed Date: 11/04/2024 11:27 ET Workstation ID: [id number] Transcribed By: Self Edit Transcribed Date: 11/04/2024 11:27 ET Nini HOROWITZ [facility] [place] PROCEDURES Final Resul t from Last 3 Months Insurance [employer] [id number] Care Teams Multimedia Instructional Designer Relationship Specialty Start Date End Date sEperanza Wade FNP [address] [place] [phone] PCP - General Family Medicine 10/05/24
== END 2025-01-12 11:40 | disposition home or self-care (01) ==
LOC: HO.ENCR 11:02
PROVIDERS: PCP Nurse Practitioner Family; Visit Provider Nurse Practitioner Adult Health
DX: E11.65 Type 2 diabetes mellitus with hyperglycemia (principal)
CPT/HCPCS: 99214

== ENCOUNTER → 2025-01-12 11:02 | Outpatient (BNVA) | payer OTHER, SELFPAY | PROVIDERS: PCP Nurse Practitioner Family; Visit Provider Nurse Practitioner Adult Health | DX: E11.65 Type 2 diabetes mellitus with hyperglycemia (principal) | CPT/HCPCS: 82947 ==

== ENCOUNTER 2025-03-22 07:48 | Outpatient (AMB) | payer OTHER, SELFPAY ==
--- OUTSIDE RECORDS SUMMARY | 2025-03-22 07:52 | XMS_ITS | Clinical Summary ---
Author Organization [facility] Address [address] [place] [address] Phone Care Team Providers Care Medical Assembler Name Role Phone Esperanza Wade LAURA Primary Care Provider [phone] Family History Medical History Relation Name Comments [...] on patient's age to complete this topic Insurance [address] [address] [employer] Care Teams Medical Assembler Relationship Specialty Start Date End Date Esperanza Wade FNP [address] [place] [phone] PCP - General Family Medicine 10/05/24
--- NOTE | 2025-03-22 07:53 | A.OFFPC_ITS ---
Vital Signs 03/22/25 08:04 03/22/25 08:15 Height 5 ft 7 in Weight 234 lb BMI 36.6 BP 135/76 120/70 Blood Pressure Location Lt brachial Lt brachial Position Sitting Sitting Respiration 16 Pulse 70 Pulse Source Pulse Oximeter Temp 97.8 F Temp Source Oral Pulse Oximetry (%) 95 Oxygen Delivery Method Room Air Intake Visit Reasons: CPE on/after 03/20/2025 Intake Note: patient here for CPE Custom Decorating Consultant Required: No Allergies iopamidol [From Isovue-370] Allergy (Mild, Verified 03/22/25 08:01) HIVES ON HEAD AND UPPER ARMS. Contrast Dye Allergy (Unknown, Uncoded 03/22/25 08:01) hives contrast dye Allergy (Unknown, Uncoded 03/22/25 08:01) hives Medication List - Last Reconciled 03/22/25 by Esperanza Wade CNP atorvastatin 80 mg PO BEDTIME blood sugar diagnostic (FreeStyle Lite Strips) TEST 4 TIMES A DAY blood-glucose meter (FreeStyle Lite Meter kit) 4 x/day blood-glucose sensor (FreeStyle Juan Jose 3 Plus Sensor device) As directed fenofibrate nanocrystallized 145 mg PO DAILY 30 days insulin glargine (Lantus Solostar U-100 Insulin) 80 units (0.8 mL) subcut DAILY 90 days insulin lispro (Humalog KwikPen (U-100) Insulin) 18 units for breakfast and lunch, 28 units for supper , plus up to 6 units additional units at meals for elevated blood sugars as directed subcutaneously 3 times a day; 90 days lancets As directed 4 times a day pen needle, diabetic (Comfort EZ Pen [place]) As directed qid tirzepatide (Mounjaro) 2.5 mg (0.5 mL) subcut QWEEK 84 days Tobacco use date assessed: 03/22/25 Dental Screening Dental Screen Date: 03/22/25 Did you have a dental visit in the last 12 months?: Yes Did you have a dental problem in the last 6 months where you did not have access to dental care?: No Was dental information given to patient?: Patient has dentist HPI HPI Comments History of Present Illness Details 45-year-old male presents for an extende d physical exam. He admits to taking his medications as prescribed without adverse reactions. Acute issue(s) - None Past Medical History - DM2, HLD, obesity Social History - Nonsmoker. Does not vape. Drinks 2-3 b eers/ liquor twice monthly. Denies recreational drug use - Has been making healthy dietary choice s. Walks regularly. Generally sleep well Health maintenance - Last eye exam was with [facility]. Record not currently available. Advise to sign a release for his PCP to obtain ophthalmology record - Last dental visit was 2 months ago - Last Tdap was in 02/25/2012; Tdap admin istered today - Has not been vaccinated for the flu ; declines vaccination [facility] [place] Medical History Kidney stones Long-term insulin use in type 2 diabetes Hepatic steatosis Hypertriglyceridemia Hematuria Hyperlipidemia LDL goal <100 Obesity due to excess calories Diabetes type 2, uncontrolled Surgical History Hx of wisdom tooth extraction Hx of appendectomy Family History Father DM2 (diabetes mellitus, type 2) Myocardial infarction Deep vein thrombosis Peripheral vascular disease History of left below knee amputation History of above-knee amputation Mother Hypertension Hyperlipidemia Fibromyalgia Diabetes Social History Household Members: Family Household Members Other:: brother Housing: House Alcohol intake: current Alcohol intake frequency: does not drink Patient Tobacco Use Status: Never used Tobacco e-Cigarette/Vaping Use: Never Used Second Hand Smoke Exposure: No service: Yes Current occupational status: employed Current occupation: [employer] Current occupational exposures/hazards: No Cognitive needs: No Hearing needs: No Vision needs: No Questionnaire PHQ-9 Over the last 2 weeks, how often have you been bothered by any of the following problems? 1. Little interest or pleasure in doing things: not at all 2. Feeling down, depressed, or hopeless: not at all 3. Trouble falling or staying asleep, or sleeping too much: several days 4. Feeling tired or having little energy: several days 5. Poor appetite or overeating: several days 6. Feeling bad about yourself - or that you are a failure or have let yourself or your family down: not at all 7. Trouble concentrating on things, such as reading the newspaper or watching television: not at all 8. Moving or speaking so slowly that other people could have noticed. Or the opposite - being so fidgety or restless that you have been moving around a lot more than usual: not at all 9. Thoughts that you would be better off or of hurting yourself in some way: not at all Total score: 3 Depression Screening Interpretation: Negative Depression Screening Done: Yes 66532 - PHQ-9 Billing: Yes Source: Developed by Drs. Karlos Muhammad, Stephanie Abebe, Fredi Simon and colleagues, with an educational odell from [employer]. Thrive Questionnaire Date Thrive assessed: 11/18/24 I am a: Patient What is your living situation today?: I have a steady place to live Within the past 12 months, did the food you bought not last and you didn't have the money to get more?: Never true Within the past 12 months, did you worry whether your food would run out before you got money to buy more?: Never true Do you have trouble paying for medicines?: No Do you have trouble getting transportation to medical appointments?: No Do you have trouble paying your heating and electricity bill?: No Do you have trouble taking care of your child, family member or friend?: No Do you have trouble with day-to-day activities such as bathing, preparing meals, shopping, managing finances, etc.?: No Are you currently unemployed and looking for a job?: No Are you interested in more education?: No Please select the resources that you would like help with: None Currently or been in a relationship where the following occur: No concerns reported THRIVE Score: 0 AUDIT C Alcohol Use Questionnaire (AUDIT-C) 1. How often do you have a drink containing alcohol?: 2-4 times a month 2. How many drinks containing alcohol do you have on a typical day when you are drinking?: 1 or 2 3. How often do you have six or more drinks on one occasion?: Less than monthly Total Score: 3 Score Reviewed/Action Taken: Yes ROBEL-7 AMB Questionnaire ROBEL-7 Date ROBEL - 7 assessed: 03/22/25 Feeling nervous, anxious, or on edge: 0 = Not at all Not being able to stop or control worryin = Not at all Worrying too much about different things: 1 = Several days Trouble relaxin = Several days Being so restless that it is hard to sit still: 0 = Not at all Becoming easily annoyed or irritable: 1 = Several days Feeling afraid as if something awful might happen: 0 = Not at all Total ROBEL-7 score (0-4 normal; 5-9 mild; 10-14 moderate; 15-21 severe): 3 Source: Developed by Drs. Karlos Muhammad, Stephanie Abebe, Fredi Simon and colleagues, with an educational odell from [employer]. ROBEL-7 Assessment Billing ROBEL-7 Assessment Tool: ROBEL-7 Assessment 65118 Review of Systems Const Details: Denies chills, Denies fatigue, Denies fever(s), Denies headache(s) and Denies weakness HEENT Denies change in vision, Denies dizziness, Denies headache(s), Denies hearing loss, Denies nasal congestion, Denies sinus pain, Denies sinus pressure and Denies sore throat Card Denies chest pain, Denies lightheadedness, Denies dyspnea and Denies other (palpitations) Resp Denies cough, Denies dyspnea and Denies wheezing GI Denies abdominal pain, Denies melena, Denies hematochezia, Denies change in bowel habits, Denies dyspepsia and Denies nausea Denies hematuria and Denies dysuria Musc Denies abnormal gait, Denies myalgias, Denies arthralgias, Denies numbness and Denies tingling Skin/Breast Denies rash, Denies unusual bruising and Denies wounds Neuro Denies abnormal gait, Denies dizziness, Denies headache(s), Denies memory loss, Denies numbness, Denies Sensory deficit (Neuro), Denies tingling and Denies weakness Psych Denies anxiety, Denies depression and Denies memory loss Endo Denies cold intolerance, Denies fatigue, Denies heat intolerance, Denies polydipsia and Denies polyuria Hoang/Lymph Denies easy bleeding and Denies easy bruising Aller/Immun Denies wheezing Physical exam (Primary Care) Vital Signs: Last Vital Signs Temp 97.8 F 03/22/25 08:04 Pulse 70 03/22/25 08:04 Resp 16 03/22/25 08:04 BP 120/70 03/22/25 08:15 Pulse Ox 95 03/22/25 08:04 Oxygen Delivery Method Room Air 03/22/25 08:04 BMI result Body Mass Index 36.6 Tobacco/Smoking Status: Tobacco use Status Tobacco use date assessed 03/22/25 03/22/25 08:08 Patient Tobacco Use Status Never used Tobacco 03/22/25 07:55 e-Cigarette/Vaping Use Never Used 03/22/25 07:55 PHQ-9: PHQ-9 Score PHQ-9: Total score 3 03/22/25 08:35 Depression Screening Interpretation: Negative Thrive Assessment: Date of Thrive Assessment Date Thrive assessed 11/18/24 03/22/25 07:55 Currently or been in a relationship where the following occur: No concerns reported Const Other: General: no acute distress, well developed, alert and awake Nutritional Appearance: well nourished Orientation/consciousness: patient oriented x3 HENMT Head: Yes normocephalic and Yes atraumatic Ears: hearing grossly normal bilaterally and TM's normal bilaterally General nose exam: Normal external nose present and Normal nares present Mouth: Normal oral and palatal mucosa present and moist mucous membranes Teeth and gingiva: dentition normal Throat: Yes oropharynx normal Eyes Pupils: Equal, round and reactive pupils present and Pupil accommodation reflex normal EOM: EOMs intact bilaterally Neck Neck: Yes normal visual inspection, Yes no lymphadenopathy and Yes trachea midline Thyroid: Thyroid normal Carotids: no bruits Lymphatic: no lymphadenopathy noted Chest Chest palpation & inspection: normal inspection of the chest Resp Effort & Inspection: normal respiratory effort Auscultation: clear to auscultation bilaterally Cardio Rate: regular rate Rhythm: regular rhythm Heart sounds: S1 normal heart sound present, S2 normal heart sound present, no gallops, no murmurs and no rubs Bruits: no abdominal aortic bruits and no carotid bruits GI Palpation (GI): No Abdominal aortic bruit present, Soft to palpation, nontender, No hepatosplenomegaly present and No Rebound tenderness present Auscultation: normal bowel sounds General: Yes no CVA tenderness Back/Spine/Pelvis Back: no CVA tenderness Cervical Spine: cervical ROM normal and No Cervical spine tenderness Thoracic/Lumbar Spine: thoraco-lumbar ROM normal, No pain with thoraco-lumbar ROM, No thoracic spinal tenderness and No lumbar spinal tenderness Skin General: warm and dry. Normal skin color. Normal skin turgor Lesions: no lesions Rashes: no rashes Trauma: no lacerations or abrasions Wounds: no wounds Nails: normal Neuro General: patient oriented x3, gait normal and CN's II-XI intact bilaterally Cranial nerves: Yes Equal, round and reactive pupils present Cognition (Neuro): normal cognition Gait exam (Neuro): Normal gait present Motor exam (neuro): 5/5 motor strength present throughout Sensory Exam: No Sensory deficit (Neuro) Deep tendon reflexes (DTR's): Right patellar reflex intensity grade: 2+ and Left patellar reflex intensity grade: 2+ Extrem General: Yes normal to inspection, No edema and No calf tenderness Psych Appearance: grossly normal Affect: normal affect Attitude: cooperative Thought process: Normal thought process present Immunizations Boostrix Tdap 2.5 Lf unit-8 mcg-5 Lf/0.5 mL intramuscular syringe Performing Provider: Esperanza Wade CNP Performing Location: [facility] Administered by: Tarun Campbell RN on 03/22/25 08:35 Dose Route Admin Location Dispensed Lot Number Expiration Date NDC Tin Plater 0.5 mL IM Left Deltoid 0.5 mL [id number] 06/04/27 [id number] [employer] VIS Given Date VIS Provided VIS Publication Date 03/22/25 Single Vaccine 21 Eligibility Eligibility Date Funding Source Not [facility] Eligible 03/22/25 Private Coding Level of Care Code Est Pt Level 3 (82068) Est Pt Prev Care 40-64y(29602) Diagnoses Normal physical examination, routine Z00.00 Uncontrolled type 2 diabetes mellitus with hyperglycemia E11.65 Glycemic state: with hyperglycemia Hyperlipidemia LDL goal <100 E78.5 Class 2 severe obesity due to excess calories with serious comorbidity and body mass index (BMI) of 35.0 to 35.9 in adult E66.01; Z68.35 Body mass index: BMI 35.0-35.9 Obesity classification: adult class 2 (BMI 35 - 39.9) Serious obesity comorbidity presence: with serious comorbidity Additional Codes ROBEL-7 Assessment Billing - ROBEL-7 Assessment Tool: ROBEL-7 Assessment 69080 ([id number]) PHQ-9 - 55993 - PHQ-9 Billing: Yes ([id number]) Assessment & Plan Assessment & Plan (1) Normal physical examination, routine: Code(s): Z00.00 - Encounter for general adult medical examination without abnormal findings Category: Medical Plan: No significant functional limitations noted. Continue current treatment regimen. Perform lab work (ordered by PCP and Endocrinology) and follow-up for a telehealth visit in 2 weeks. Return sooner with symptoms or concerns. Verbalized understanding and agreed with the plan. (2) Diabetes type 2, uncontrolled: Code(s): E11.65 - Type 2 diabetes mellitus with hyperglycemia Category: Medical Qualifiers: Glycemic state: with hyperglycemia Qualified Code(s): E11.65 - Type 2 diabetes mellitus with hyperglycemia Plan: Recent A1c is 7.9% in November. He is very busy with work and scheduled to follow up in 05/07/2025. Continue current treatment regimen. ADA diet and routine exercise encouraged. Follow-up with [facility] [place] as planned. Verbalized understanding and agreed with the treatment plan. (3) Hyperlipidemia LDL goal <100: Code(s): E78.5 - Hyperlipidemia, unspecified Category: Medical Plan: Recent triglycerides, total cholesterol, and LDL levels in November were elevated, 368, 210, and 105 respectively. HDL level was low, 32. Continue current treatment regimen. Advised to limit foods high in saturated fat and avoid foods high in trans fat. Routine exercise encouraged. Encouraged to perform fasting lipid panel blood work and follow-up for a telehealth visit in 2 weeks. Return sooner with symptoms or concerns. Verbalized understanding and agreed with treatment plan. (4) Obesity due to excess calories: Code(s): E66.09 - Other obesity due to excess calories Category: Medical Qualifiers: Body mass index: BMI 35.0-35.9 Obesity classification: adult class 2 (BMI 35 - 39.9) Serious obesity comorbidity presence: with serious comorbidity Qualified Code(s): E66.01 - Morbid (severe) obesity due to excess calories; Z68.35 - Body mass index [BMI] 35.0-35.9, adult Plan: He currently weighs 234 lb, BMI is 36.6. Declines referral to digital specialist/dietitian or weight management clinic. Healthy diet and routine exercise encouraged. Follow-up as needed. Verbalized understanding and agreed with the plan. Orders: Orders TSH reflex Free T4 Today Z00.00 - Encounter for general adult medical examination without abnormal findings TDaP Immunization Today Z23 - Encounter for immunization
[2025-03-22 08:04] VITALS: BP 135/76; PULSE 70; RESP 16; TEMP 36.6; O2SAT 95; BMI 36.6
[2025-03-22 08:15] VITALS: BP 120/70
== END 2025-03-22 08:35 | disposition home or self-care (01) ==
LOC: HO.HMCFM 07:49
PROVIDERS: PCP Nurse Practitioner Family; Visit Provider Nurse Practitioner Family
DX: Z00.00 Encounter for general adult medical examination without abnormal findings (principal); E11.65 Type 2 diabetes mellitus with hyperglycemia; E78.5 Hyperlipidemia, unspecified; E66.01 Morbid (severe) obesity due to excess calories; Z68.35 Body mass index [BMI] 35.0-35.9, adult; Z23 Encounter for immunization

== ENCOUNTER → 2025-03-22 07:48 | Outpatient (BNVA) | payer OTHER, SELFPAY | PROVIDERS: PCP Nurse Practitioner Family; Visit Provider Nurse Practitioner Family | DX: Z00.00 Encounter for general adult medical examination without abnormal findings (principal); E11.65 Type 2 diabetes mellitus with hyperglycemia; E78.5 Hyperlipidemia, unspecified; E66.01 Morbid (severe) obesity due to excess calories; E66.812 Obesity, class 2; Z23 Encounter for immunization; Z68.35 Body mass index [BMI] 35.0-35.9, adult; Z68.36 Body mass index [BMI] 36.0-36.9, adult | CPT/HCPCS: 90471; 90715; 96127 ==

== ENCOUNTER 2025-05-10 10:05 | Outpatient (AMB) | payer OTHER, SELFPAY ==
--- NOTE | 2025-05-10 10:22 | MHC.OFFVIS ---
Vital Signs 05/10/25 10:29 Height 5 ft 7 in Weight 228 lb 2.855 oz BMI 35.7 BP 96/58 L Blood Pressure Location Rt brachial Position Sitting Pulse 80 Pulse Source Pulse Oximeter Pulse Oximetry (%) 97 Oxygen Delivery Method Room Air Intake Visit Reasons: T2DM Intake Note: Patient present today for Type 2 Diabetes Mellitus Last Diabetic eye exam:06/2024 Last Podiatry Visit: does not see grove superintendent Random Glucose: mg/dl HgA1C:8.9% Due Accompanied by: Self / Same As Patient Allergies iopamidol (From Isovue-370) Allergy (Mild, Verified 05/10/25 10:37) HIVES ON HEAD AND UPPER ARMS. Contrast Dye Allergy (Unknown, Uncoded 03/22/25 08:01) hives contrast dye Allergy (Unknown, Uncoded 03/22/25 08:01) hives Medication List - Last Reconciled 05/10/25 by Karlos East MD atorvastatin 80 mg PO BEDTIME blood sugar diagnostic (FreeStyle Lite Strips) TEST 4 TIMES A DAY blood-glucose meter (FreeStyle Lite Meter kit) 4 x/day blood-glucose sensor (FreeStyle Juan Jose 3 Plus Sensor device) As directed fenofibrate nanocrystallized 145 mg PO DAILY 30 days insulin glargine (Lantus Solostar U-100 Insulin) 80 units (0.8 mL) subcut DAILY 90 days insulin lispro (Humalog KwikPen (U-100) Insulin) 18 units for breakfast and lunch, 28 units for supper , plus up to 6 units additional units at meals for elevated blood sugars as directed subcutaneously 3 times a day; 90 days lancets As directed 4 times a day pen needle, diabetic (Comfort EZ Pen [place]) As directed qid tirzepatide (Mounjaro) 7.5 mg (0.5 mL) subcut QWEEK 28 days HPI Comments Details: 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 He is currently on basal bolus insulin plus GLP 1 agonist. Mounjaro 7.5 mg Qwkly , He was on mounjaro in the past and found it worked better for him in controlling his glucose. He was able to get this through his insurance but co-pay increase dramatically. Took Jardiance in the past but had symptoms upset stomach metformin regular and XR caused GI upset 500 mg b.i.d. Past medical history: HTn, DM2, HLD, hypertriglyceridemia and fatty liver Micro and macrovascular complications: none known Diabetes medications: Lantus 80 units Humalog 24 breakfast and lunch 28 units for meals tid correction for blood sugars over 200 +2 units, over 250+ 4 units and over 300+ 6 units Mounjaro 5 mg weekly Juan Jose download shows he is using the sensor 96% of the time. Average glucose is 244 with G mi of 9.1% and variability 26.6%. Glucoses are in target range 18% of the time with 38% hyperglycemia and very high blood sugars 44% of the time. Pen shows decrease his overnight with elevation after breakfast and sustain hyperglycemia denies numbness, tingling, cramping in lower extremities Hypoglycemia: denies Hyperglycemia: denies polyuria No neuropathy: denies numbness, tingling, cramping in lower extremities No retinopathy: Last eye exam was 06/2025 no9 retinopathy No Nephropathy: 05/21/23 microalbumin 15.0 05/17/24 eGFR>60 HLD on statin most recent 05/2024 LDL 109 Denies CAD. Denies symptoms of chest pain, dyspnea or claudication. Exercise: goes to camp and does outdoor projects. PFS Medical History Kidney stones Long-term insulin use in type 2 diabetes Hepatic steatosis Hypertriglyceridemia Hematuria Hyperlipidemia LDL goal <100 Obesity due to excess calories Diabetes type 2, uncontrolled Surgical History Hx of wisdom tooth extraction Hx of appendectomy Family History Father DM2 (diabetes mellitus, type 2) Myocardial infarction Deep vein thrombosis Peripheral vascular disease History of left below knee amputation History of above-knee amputation Mother Hypertension Hyperlipidemia Fibromyalgia Diabetes Social History Household Members: Family Household Members Other:: brother Housing: House Alcohol intake: current Alcohol intake frequency: does not drink Patient Tobacco Use Status: Never used Tobacco e-Cigarette/Vaping Use: Never Used Second Hand Smoke Exposure: No service: Yes Current occupational status: employed Current occupation: [employer] Current occupational exposures/hazards: No Cognitive needs: No Hearing needs: No Vision needs: No Physical Exam Vital Signs: Last Vital Signs Pulse 80 05/10/25 10:29 BP 96/58 L 05/10/25 10:29 Pulse Ox 97 05/10/25 10:29 Oxygen Delivery Method Room Air 05/10/25 10:29 BMI result Body Mass Index 35.7 Const Other: Absence of Cushingoid features. Absence of acromegalic features. Neck exam reveals nl size thyroid about 15 gms. No thyroid nodules palpable. No carotid bruits present. Lungs CTA. Heart S1 S2, Reg R/R. No M/R G. Skin exam reveals absence of vitiligo or acanthosis nigricans. No edema Visual exam of foot performed. No ulcerations or open lesions. No inter digit maceration or fissuring. No onychomycosis, no callouses. Sensation intact to monofilament exam. Vibratory sensation is normal with 128 Hz tuning fork. Results AMB Hemoglobin A1c AMB Hemoglobin A1c 8.9 % Last Edit by SHONNA Mathew on 05/10/25 10:51 Results Reviewed Results Reviewed: Laboratory Last Values Glucose (Clinic) 203 mg/dL (60-115) H 05/10/25 10:35 Hgb A1c (Clinic) 8.9 % (4.0-6.0) H 05/10/25 10:50 Assessment & Plan Assessment & Plan (1) Diabetes type 2, uncontrolled: Code(s): E11.65 - Type 2 diabetes mellitus with hyperglycemia Category: Medical Qualifiers: Glycemic state: with hyperglycemia Qualified Code(s): E11.65 - Type 2 diabetes mellitus with hyperglycemia Plan: Is a 43-year-old white male with a history of type 2 diabetes being treated with Mounjaro , and basal-bolus insulin with improved but not optimal glycemic control and no known microvascular or macrovascular complication. Plan is to change the Lantus to Tresiba 80 units to get full 24 hr coverage. Will have patient see certified diabetes educator in the next few weeks. May need to switch patient from Tresiba to U 500 insulin as patient is very insulin resistant. Lastly, briefly discuss with patient the idea of use of a pump like tandem T-slim which might be effective in delivering insulin rather than injectable insulin. Orders: Orders AMB Hemoglobin A1c Today E11.65 - Type 2 diabetes mellitus with hyperglycemia Referrals Diabetes Education Referral E11.65 - Type 2 diabetes mellitus with hyperglycemia Medications: New insulin degludec (Tresiba FlexTouch U-200 insulin) 80 units (0.4 mL) subcut BEDTIME 18 mL 4RF Discontinued insulin glargine (Lantus Solostar U-100 Insulin) Discontinued Reason: Doctor's Order 80 units (0.8 mL) subcut DAILY 90 days 72 mL 3RF Coding Level of Care Code Est Pt Level 4 (01753) Diagnoses Uncontrolled type 2 diabetes mellitus with hyperglycemia E11.65 Glycemic state: with hyperglycemia
[2025-05-10 10:29] VITALS: BP 96/58; PULSE 80; O2SAT 97; BMI 35.7
[2025-05-10 10:41] LABS: Glucose, Whole Blood 203 mg/dL (60-115)
--- OUTSIDE RECORDS SUMMARY | 2025-05-10 10:44 | XMS_ITS | Clinical Summary ---
Author Organization [facility] Address [address] [place] [address] Phone Care Team Providers Care Biology Specialist Name Role Phone Esperanza Wade LAURA Primary Care Provider [phone] Family History Medical History Relation Name Comments [...] Panel) 10/31/2023 Colorectal Cancer Screening: Colonoscopy 10/31/2023 HIV Screening 10/31/2023 Hepatitis C Screening 10/31/2023 Social Influencers of Health Screening 10/31/2023 COVID-19 Vaccine (3 - 2023-2 5 season) 2024 11/16/2020, 10/18/2020 Depression Screening 10/07/2024 Influenza Vaccine (#1) 2025 , 06/18/2017 Pneumococcal Vaccine: Pediatrics (0 to 5 Years) and At-Risk Patients (6 to 49 Years) Aged Out 04/02/2018 No longer eligible [...] patient's age to complete this topic Insurance [place] [address] [employer] Care Teams Biology Specialist Relationship Specialty Start Date End Date Esperanza Wade FNP [address] [place] [phone] PCP - General Family Medicine 10/05/24
== END 2025-05-10 11:28 | disposition home or self-care (01) ==
PROVIDERS: PCP Nurse Practitioner Family; Visit Provider Internal Medicine Endocrinology, Diabetes & Metabolism
DX: E11.65 Type 2 diabetes mellitus with hyperglycemia (principal)
CPT/HCPCS: 99214

== ENCOUNTER 2025-05-10 10:05 | Outpatient (REF) | payer OTHER, SELFPAY ==
[2025-05-10 14:36] LABS: Anion Gap 12 (12-20); Blood Urea Nitrogen 12 mg/dL (9-16); Calcium 9.2 mg/dL (8.4-10.2); Carbon Dioxide 26 mmol/L (22-29); Chloride 107 mmol/L (96-108); Cholesterol 231 mg/dL (<200); Estimated Glomerular Filt Rate > 60; HDL Cholesterol 37 mg/dL (>40); Potassium 3.9 mmol/L (3.3-5.1); Sodium 141 mmol/L (135-145); Triglycerides 200 mg/dL (<150)
[2025-05-10 16:46] LABS: Microalbum/Creatinine Ratio Ur 4.3 ug/mg cr (<30)
== END 2025-05-10 10:06 | disposition home or self-care (01) ==
LOC: HO.HMGCLDS 10:05
PROVIDERS: Nurse Practitioner Adult Health; PCP Nurse Practitioner Family; Referring Provider Physician Assistant; Visit Provider Nurse Practitioner Family
DX: Z00.00 Encounter for general adult medical examination without abnormal findings (principal); E11.65 Type 2 diabetes mellitus with hyperglycemia; N20.0 Calculus of kidney; E78.5 Hyperlipidemia, unspecified; Z79.85 Long-term (current) use of injectable non-insulin antidiabetic drugs; Z79.4 Long term (current) use of insulin
CPT/HCPCS: 36415; 80048; 80061; 82043; 82306; 82570; 82947; 83036; 84443

== ENCOUNTER 2025-06-16 09:38 | Outpatient (AMB) | payer OTHER, SELFPAY ==
--- NOTE | 2025-06-16 09:45 | A.OFFVIS_ITS ---
Vital Signs 06/16/25 09:49 Height 5 ft 7 in Weight 232 lb 2.348 oz BMI 36.4 BP 112/76 Blood Pressure Location Rt brachial Position Sitting Pulse 86 Pulse Source Pulse Oximeter Pulse Oximetry (%) 97 Oxygen Delivery Method Room Air Intake Visit Reasons: T2DM Intake Note: Patient present today for Type 2 Diabetes Mellitus Last Diabetic eye exam: 06/2024 Last Podiatry Visit: Does not see Mechatronics Technician Random Glucose: 163 mg/dl HgA1C: 8.9% 05/10/2025 Field Support Technician Required: No Accompanied by: Self / Same As Patient Allergies iopamidol (From Isovue-[id number]) Allergy (Mild, Verified 06/16/25 09:49) HIVES ON HEAD AND UPPER ARMS. Contrast Dye Allergy (Unknown, Uncoded 06/16/25 09:49) hives contrast dye Allergy (Unknown, Uncoded 06/16/25 09:49) hives Medication List - Last Reconciled 06/16/25 by Karlos East MD atorvastatin 80 mg PO BEDTIME blood sugar diagnostic (FreeStyle Lite Strips) TEST 4 TIMES A DAY blood-glucose meter (FreeStyle Lite Meter kit) 4 x/day blood-glucose sensor (FreeStyle Juan Jose 3 Plus Sensor device) As directed fenofibrate nanocrystallized 145 mg PO DAILY 30 days Humalog KwikPen Insulin (insulin lispro) 18 units for breakfast and lunch, 28 units for supper , plus up to 6 units additional units at meals for elevated blood sugars as directed subcutaneously 3 times a day; 90 days NS insulin degludec (Tresiba FlexTouch U-200 insulin) 80 units (0.4 mL) subcut BEDTIME lancets As directed 4 times a day pen needle, diabetic (Comfort EZ Pen [place]) As directed qid tirzepatide (Mounjaro) 7.5 mg (0.5 mL) subcut QWEEK 28 days HPI Comments Details: 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 He was on mounjaro in the past and found it worked better for him in controlling his glucose. He was able to get this through his insurance but co-pay increase dramatically. Took Jardiance in the past but had symptoms upset stomach metformin regular and XR caused GI upset 500 mg b.i.d. Past medical history: HTn, DM2, HLD, hypertriglyceridemia and fatty liver Micro and macrovascular complications: none known Diabetes medications: Lantus 80 units Humalog 24 breakfast and lunch 28 units for meals tid correction for blood sugars over 200 +2 units, over 250+ 4 units and over 300+ 6 units Mounjaro 7.5 mg weekly Juan Jose download shows he is using the sensor 91% of the time. Average glucose is 185 with G mi of 7.7% and variability 30.2 %. Glucoses are in target range 50% of the time with 36% hyperglycemia and very high blood sugars 14% of the time. Pen shows decrease his overnight with elevation after breakfast and sustain hyperglycemia denies numbness, tingling, cramping in lower extremities Hypoglycemia: denies Hyperglycemia: denies polyuria No neuropathy: denies numbness, tingling, cramping in lower extremities No retinopathy: Last eye exam was 06/2025 no9 retinopathy No Nephropathy: HLD on statin Denies CAD. Denies symptoms of chest pain, dyspnea or claudication. Exercise: goes to camp and does outdoor projects. [facility] Medical History Kidney stones Long-term insulin use in type 2 diabetes Hepatic steatosis Hypertriglyceridemia Hematuria Hyperlipidemia LDL goal <100 Obesity due to excess calories Diabetes type 2, uncontrolled Surgical History Hx of wisdom tooth extraction Hx of appendectomy Family History Father DM2 (diabetes mellitus, type 2) Myocardial infarction Deep vein thrombosis Peripheral vascular disease History of left below knee amputation History of above-knee amputation Mother Hypertension Hyperlipidemia Fibromyalgia Diabetes Social History Household Members: Family Household Members Other:: brother Housing: House Alcohol intake: current Alcohol intake frequency: does not drink Patient Tobacco Use Status: Never used Tobacco e-Cigarette/Vaping Use: Never Used Second Hand Smoke Exposure: No service: Yes Current occupational status: employed Current occupation: [employer] Current occupational exposures/hazards: No Cognitive needs: No Hearing needs: No Vision needs: No Physical Exam Vital Signs: Last Vital Signs Pulse 86 06/16/25 09:49 BP 112/76 06/16/25 09:49 Pulse Ox 97 06/16/25 09:49 Oxygen Delivery Method Room Air 06/16/25 09:49 BMI result Body Mass Index 36.4 Const Other: Absence of Cushingoid features. Absence of acromegalic features. Neck exam reveals nl size thyroid about 15 gms. No thyroid nodules palpable. No carotid bruits present. Lungs CTA. Heart S1 S2, Reg R/R. No M/R G. Skin exam reveals absence of vitiligo or acanthosis nigricans. No edema Visual exam of foot performed. No ulcerations or open lesions. No inter digit maceration or fissuring. No onychomycosis, no callouses. Sensation intact to monofilament exam. Vibratory sensation is normal with 128 Hz tuning fork. Results Reviewed Results Reviewed: Laboratory Last Values Glucose (Clinic) 163 mg/dL (60-115) H 06/16/25 09:53 Assessment & Plan Assessment & Plan (1) Diabetes type 2, uncontrolled: Code(s): E11.65 - Type 2 diabetes mellitus with hyperglycemia Category: Medical Qualifiers: Glycemic state: with hyperglycemia Qualified Code(s): E11.65 - Type 2 diabetes mellitus with hyperglycemia Plan: Is a 45-year-old white male with a history of type 2 diabetes being treated with Mounjaro , and basal-bolus insulin with improved fair glycemic control and no known microvascular or macrovascular complication. Plan is to switch Lantus to Tresiba and increase the Humalog to 30 units prebreakfast Will have patient see certified diabetes educator in the next few weeks. May need to switch patient from Tresiba to U 500 insulin as patient is very insulin resistant. Lastly, briefly discuss with patient the idea of use of a pump like tandem T-slim which might be effective in delivering insulin rather than injectable insulin. Coding Level of Care Code Est Pt Level 4 (96855) Complex EM visit Add On G2211 Diagnoses Uncontrolled type 2 diabetes mellitus with hyperglycemia E11.65 Glycemic state: with hyperglycemia
[2025-06-16 09:49] VITALS: BP 112/76; PULSE 86; O2SAT 97; BMI 36.4
[2025-06-16 09:58] LABS: Glucose, Whole Blood 163 mg/dL (60-115)
== END 2025-06-16 10:11 | disposition home or self-care (01) ==
LOC: HO.ENCR 09:43
PROVIDERS: PCP Nurse Practitioner Family; Visit Provider Internal Medicine Endocrinology, Diabetes & Metabolism
DX: E11.65 Type 2 diabetes mellitus with hyperglycemia (principal)
CPT/HCPCS: 99214; G2211

== ENCOUNTER → 2025-06-16 09:38 | Outpatient (BNVA) | payer OTHER, SELFPAY | PROVIDERS: PCP Nurse Practitioner Family; Visit Provider Internal Medicine Endocrinology, Diabetes & Metabolism | DX: E11.65 Type 2 diabetes mellitus with hyperglycemia (principal) | CPT/HCPCS: 82947 ==

== ENCOUNTER 2025-07-13 09:11 | Outpatient (AMB) | payer OTHER, SELFPAY ==
--- NOTE | 2025-07-13 09:16 | A.OFFVIS_ITS ---
Intake Intake Visit Reasons: T2DM Shadow Graph Weight Operator Required: No Accompanied by: Self / Same As Patient Allergies iopamidol (From Isovue-[id number]) Allergy (Mild, Verified 06/16/25 09:49) HIVES ON HEAD AND UPPER ARMS. Contrast Dye Allergy (Unknown, Uncoded 06/16/25 09:49) hives contrast dye Allergy (Unknown, Uncoded 06/16/25 09:49) hives HPI Comprehensive Diabetes Asmnt Most Recent Diabetes Results: 2 Microalb/Creat Ratio, (<30) 4.3 ug/mg cr 05/10/25 Cholesterol, (<200) 231 mg/dL H 05/10/25 HDL Cholesterol, (>40) 37 mg/dL L 05/10/25 Triglycerides, (<150) 200 mg/dL H 05/10/25 Creatinine, (0.5-1.4) 0.72 mg/dL 05/10/25 BUN, (9-16) 12 mg/dL 05/10/25 Sodium, (135-145) 141 mmol/L 05/10/25 Potassium, (3.3-5.1) 3.9 mmol/L 05/10/25 Chloride, (96-108) 107 mmol/L 05/10/25 Carbon Dioxide, (22-29) 26 mmol/L 05/10/25 Calcium, (8.4-10.2) 9.2 mg/dL Δ 05/10/25 AST, (5-37) 37 U/L 01/09/25 ALT, (0-40) 57 U/L H 01/09/25 Total Protein, (6.5-8.0) 6.5 g/dL 01/09/25 Albumin, (3.5-5.0) 3.8 g/dL 01/09/25 PFSH Medical History Kidney stones Long-term insulin use in type 2 diabetes Hepatic steatosis Hypertriglyceridemia Hematuria Hyperlipidemia LDL goal <100 Obesity due to excess calories Diabetes type 2, uncontrolled Surgical History Hx of wisdom tooth extraction Hx of appendectomy Family History Father DM2 (diabetes mellitus, type 2) Myocardial infarction Deep vein thrombosis Peripheral vascular disease History of left below knee amputation History of above-knee amputation Mother Hypertension Hyperlipidemia Fibromyalgia Diabetes Social History Household Members: Family Household Members Other:: brother Housing: House Alcohol intake: current Alcohol intake frequency: does not drink Patient Tobacco Use Status: Never used Tobacco e-Cigarette/Vaping Use: Never Used Second Hand Smoke Exposure: No service: Yes Current occupational status: employed Current occupation: [employer] Current occupational exposures/hazards: No Cognitive needs: No Hearing needs: No Vision needs: No Assessment & Plan Assessment & Plan (1) Diabetes type 2, uncontrolled: Code(s): E11.65 - Type 2 diabetes mellitus with hyperglycemia Qualifiers: Glycemic state: with hyperglycemia Qualified Code(s): E11.65 - Type 2 diabetes mellitus with hyperglycemia Plan: Learning objectives: The patient was provided with verbal and written education on the following topics as outlined below. The patient met all learning objectives and was able to verbalize understanding and provide teach back of education topics discussed . The patient was provided with the opportunity to ask questions and all questions were answered. Patient Assessment Assess patient education level/literacy/barriers, patient's last A1c 8.9 % in May 2025. Patient has not started on higher dose of Mounjaro 7.5 mg. He has not transitioned from Lantus 80 units to Tresiba Did discuss at today's visit seeing if splitting Lantus dose to 40 b.i.d. may help with more consistent insulin coverage Patient questions/concerns, at this time patient is not interested in discussing insulin pump therapy. At today's visit we discussed making different food choices at meals to help control glucose and starting new medications What is Diabetes? Pathophysiology How the body produces and uses insulin Identify type of DM Risk factors Signs of Diabetes Brief overview of Diabetes Management Monitoring blood sugar Following a meal plan Regular exercise Maintaining a healthy weight Taking medication as needed Members of the care team (PCP, RN, MA, RD, CDE, manufacturing storeperson) Blood glucose monitoring When/how often to test Target blood sugar ranges Introduction to Nutrition Importance of healthy diet in managing DM Diet is personalized to individual preference Review patient?s regular diet/food preferences Who prepares meals/does food shopping/ Dining out?/ Barriers? How diet effects glucose Eating 3 balanced meals a day with small, healthy snacks between meals Review food groups Carbohydrates: What is a carbohydrate/Which food/food groups are considered carbohydrates Effect of carbohydrates on blood glucose Portion sizes Reading food labels Basic carb counting (if applicable per nursing assessment) Plate method Meal planning Recommendations: Follow plate method, consistent carbs and read nutritional labels. Smart Goal: Make carbohydrate portions between 45 to 60 gms per meal Educational Materials: The patient was provided with the following written educational materials: Planning Healthy Meals Handout Patient Response to instructions: Comprehension of Instructions: Fair Readiness to make changes: Contemplation How confident they feel about making changes: Positive Portions of this note were created using voice recognition software, please excuse any words or phrases that may have been misinterpreted. Patient Instructions: Include regular daily activity. ADA recommends 30 minutes of exercise 5 days a week. Weight loss talk to PCP or Human Resources Talent Manager before starting new plan. Test blood sugar as directed; Fasting and 2hpp largest meal. Watch trends in results. Utilize results and to assess how food, physical activity and medications affect blood sugar results. Bring glucometer or CGM to next visit. Be knowledgeable about diabetes medication, its action, side effects, efficacy, toxicity, prescribed dosage, appropriate timing and frequency of administration, effect of missed and delayed doses and instructions for storage, travel and safety. Problem solving techniques to monitor hypo/hyperglycemia episodes and treatments. Reduce risk reduction behaviors, smoking cessation, regular eye, foot and dental examinations. Coding Level of Care Code Est Pt Level 1 (19889) Diagnoses Uncontrolled type 2 diabetes mellitus with hyperglycemia E11.65 Glycemic state: with hyperglycemia
--- OUTSIDE RECORDS SUMMARY | 2025-07-13 10:10 | XMS_ITS | Clinical Summary ---
Author Organization [facility] Address [address] [place] [address] Phone Care Team Providers Care Slot Ambassador Name Role Phone Esperanza Wade LAURA Primary Care Provider [phone] Family History Medical History Relation Name Comments [...] Health Maintenance Due Date Last Done Comments Colorectal Cancer Screening: Colonoscopy 1979 DTaP,Tdap,and Td Vaccines (1 - Tdap) 1998 Hepatitis B Vaccines (1 of 3 - 19+ 3-dose series) 1998 Cholesterol Screening (Lipid Panel) 10/31/2023 HIV Screening 10/31/2023 Hepatitis C Screening 10/31/2023 Social Influencers of Health Screening 10/31/2023 Depression Screening 10/07/2024 COVID-19 Vaccine (3 - 2024-2 6 season) 2025 11/16/2020, 10/18/2020 Influenza Vaccine (#1) 2025 , 06/18/2017 RSV Immunization Adult Patients (1 - 1-dose 75+ series) 2054 Pneumococcal Vaccine: Pediatrics (0 to 5 Years) [...] patient's age to complete this topic [place] [address] [address] [place] [address] [employer] Care Teams Slot Ambassador Relationship Specialty Start Date End Date Esperanza Wade FNP [address] [place] [phone] PCP - General Family Medicine 10/05/24
== END 2025-07-13 09:49 | disposition home or self-care (01) ==
LOC: HO.ENCR 09:12
PROVIDERS: PCP Nurse Practitioner Family; Visit Provider Registered Nurse Diabetes Educator
DX: E11.65 Type 2 diabetes mellitus with hyperglycemia (principal)
CPT/HCPCS: 99499